=== PATIENT | female | born 1930 | race Caucasian/White ===

== ENCOUNTER 2017-03-26 14:10 | Inpatient (IN) | payer MEDICARE, BC ==
[~2017-03-26] VITALS: Ht 157.5 cm; Wt 74.3 kg
[~2017-03-26 14:10] MED LIST: CARDURA4 MG PO; CIPRO500 MG PO; CYMBALTA60 MG PO; MAGNESIUM GLUC500 M1 PO; MULTIPLE VITAMI1 TA1 PO; VASOTEC20 MG PO
[2017-03-26 16:20] LABS: BASOPHILS 0.2 % (0-2); EOSINOPHILS 1.1 % (0-7); HEMATOCRIT 37.8 % (36.0-48.0); HEMOGLOBIN 12.1 g/dL (12-16); IMMATURE GRANULOCYTES 0.3 % (0-5); LYMPHOCYTES 18.3 % (15-50); MCH 27.4 pg (26.0-34.0); MCV 85.5 fL (80.0-100.0); MEAN PLATELET VOLUME 9.2 fL (7.4-10.4); MONOCYTES 7.7 % (2-11); NEUTROPHILS 72.4 % (40-80); PLATELET COUNT 234 10x3/uL (130-400); RBC 4.42 10x6/uL (4.00-5.40); RDW 14.6 % (11.5-14.5); WBC 11.5 10x3/uL (4.8-10.8)
[2017-03-26 16:37] LABS: INR 1.34 (0.85-1.17); PROTIME 16.4 SECONDS (11.6-15.0)
[2017-03-26 16:42] LABS: ALBUMIN 2.8 g/dL (3.4-5.0); ANION GAP 10.8 mmol/L (8-16); BILIRUBIN - TOTAL 0.55 mg/dL (0.2-1.3); CALCIUM 8.5 mg/dL (8.5-10.1); CARBON DIOXIDE 27.3 mmol/L (21.0-32.0); CREATININE - SERUM 0.9 mg/dL (0.6-1.3); POTASSIUM - SERUM 4.1 mmol/L (3.5-5.1); PROTEIN - SERUM 7.1 g/dL (6.4-8.2)
[2017-03-26 16:59] LABS: TROPONIN-I 1.549 ng/mL (0.000-0.060)
[2017-03-26 21:00] VITALS: BP 115/43
--- NOTE | 2017-03-26 21:04 | NUR ---
RECIEVED PT TO FLOOR FROM ED VIA WHEELCHAIR. PT WALKED SELF TO BED WITH MINIMAL ASSISTANCE. PT IS ALERT AND ORIENTED AND ABLE TO VERBALIZE NEEDS. IV IS PATENT AND SALINE LOC AT THIS TIME. O2 @ 2 PER NASAL CANNULA. PT STATES SHE HAS PAIN TO HER LOWER BACK AND HIPS THAT IS CHRONIC. PT IS ORIENTED TO ROOM AND USE OF CALL LIGHT. NO NEEDS ARE VERBALIZED AT THIS TIME. WILL CONTINUE TO MONITOR. SIDE RAILS ARE UP X 2. BED IS IN LOWEST POSITION. CALL LIGHT IS WITHIN REACH.
[2017-03-26 21:34] LABS: APPEARANCE HAZY (CLEAR); BILIRUBIN NEGATIVE (NEGATIVE); COLOR DK YELLOW (YELLOW); GLUCOSE NEGATIVE (NEGATIVE); KETONE SMALL mg/dL (NEGATIVE); LEUKOCYTE ESTERASE TRACE (NEGATIVE); NITRITE NEGATIVE (NEGATIVE); PROTEIN TRACE mg/dL (NEGATIVE); SPECIFIC GRAVITY 1.025 (1.005-1.020); UROBILINOGEN NORMAL (NORMAL)
[2017-03-26 21:37] LABS: BACTERIA MODERATE /hpf (NONE SEEN); EPITHELIAL CELLS OCC /hpf (0-5); GRANULAR CAST OCC /lpf (NONE SEEN); HYALINE CAST 0-5 /lpf (NONE SEEN); MUCUS <1+ /lpf (NONE SEEN); RED CELLS - URINE 0-5 /hpf (0-5); WHITE CELLS - URINE 0-5 /hpf (0-5)
[2017-03-27] VITALS (7 sets, daily range): BP systolic 110–138; BP diastolic 43–61; Ht 157.5 cm; Wt 74.3 kg
[2017-03-27 06:50] LABS: BASOPHILS 0.1 % (0-2); HEMATOCRIT 32.7 % (36.0-48.0); HEMOGLOBIN 10.4 g/dL (12-16); IMMATURE GRANULOCYTES 0.3 % (0-5); LYMPHOCYTES 7.9 % (15-50); MCH 27.1 pg (26.0-34.0); MCHC 31.8 g/dL (31.0-37.0); MCV 85.2 fL (80.0-100.0); MEAN PLATELET VOLUME 9.4 fL (7.4-10.4); MONOCYTES 8.8 % (2-11); NEUTROPHILS 80.9 % (40-80); PLATELET COUNT 226 10x3/uL (130-400); RBC 3.84 10x6/uL (4.00-5.40); RDW 14.5 % (11.5-14.5)
[2017-03-27 07:00] LABS: CALC OSMOLALITY 265 mosm/kg (275-300); CALCIUM 8.1 mg/dL (8.5-10.1); CARBON DIOXIDE 27.4 mmol/L (21.0-32.0); CHLORIDE - SERUM 98 mmol/L (98-107); CREATININE - SERUM 0.7 mg/dL (0.6-1.3); GLUCOSE 105 mg/dL (74-106); SODIUM 133 mmol/L (136-145); UREA NITROGEN 13 mg/dL (7-18); eGFR NON AFRICAN AMERICAN 84 mL/min (90-120)
--- NOTE | 2017-03-27 07:55 | NUR ---
Alert and oriented times three, verbalized name and . Has oxygen in place at 2l, sitting up on side of bed, rhonchi auscultated to lung hall, nonproductive cough. Reports no chest pain at this time. Call brock within reach, instructed to call nurse to assist to bathroom. No distress assessed.
--- NOTE | 2017-03-27 09:34 | NUR ---
New order for SCD hose, skin lower legs assessed with no complications assessed, trace edema to ankles. Explained use of SCD's to patient and hose applied. Reinforced calling nurse for assist up, call light within reach. Fall risk precautions in place, reji alarm placed to bed and functioning properly, nonskid socks in place. Verbalized understanding of instructions.
--- NOTE | 2017-03-27 11:44 | NUR ---
Incentive spirometer initiated, able to demonstrate up to 4-500 piyush, continue to instruct.
[2017-03-27 13:20] LABS: CKMB 3.5 U/L (0.0-3.6); CREATINE KINASE 97 UL (21-215)
[2017-03-27 13:22] LABS: TROPONIN-I 1.213 ng/mL (0.000-0.060)
--- NOTE | 2017-03-27 13:57 | NUR ---
Assisted up top bathroom, slow steady gait with assist. Assisted back to bed. Lilly alarm on and functioning properly. No distress.
[2017-03-27 17:06] LABS: CKMB 2.9 U/L (0.0-3.6); CREATINE KINASE 91 UL (21-215)
[2017-03-27 17:10] LABS: TROPONIN-I 0.869 ng/mL (0.000-0.060)
--- NOTE | 2017-03-27 21:19 | NUR ---
AWAKE WIHTOUT COMPLAINTS. O2 AT 2L PER MC ON. NO DISTRESS NOTED. SL TO RIGHT HAND INTACT WITHOUT REDNESS OR EDEMMA NOTED. CL IN REACH.
[2017-03-27 22:59] LABS: CKMB 2.2 U/L (0.0-3.6); CREATINE KINASE 73 UL (21-215)
[2017-03-28] VITALS (8 sets, daily range): BP systolic 100–124; BP diastolic 44–62
--- NOTE | 2017-03-28 02:00 | NUR ---
PT IN BED WITH NO DISTRESS. O2 @ 2 PER NASAL CANNULA. SCD'S ON. ADAIR MAT ON. SIDE RAILS X 2. BED IS LOW. CALL LIGHT IN REACH.
--- NOTE | 2017-03-28 05:15 | NUR ---
AROUSES EASILY TO VERBAL STIMULI. NO COMPLAINTS VOICED. CL IN REACH
[2017-03-28 06:34] LABS: BASOPHILS 0.1 % (0-2); EOSINOPHILS 2.2 % (0-7); HEMOGLOBIN 9.9 g/dL (12-16); IMMATURE GRANULOCYTES 0.1 % (0-5); LYMPHOCYTES 16.6 % (15-50); MCH 26.9 pg (26.0-34.0); MCHC 31.9 g/dL (31.0-37.0); MCV 84.2 fL (80.0-100.0); MEAN PLATELET VOLUME 9.1 fL (7.4-10.4); MONOCYTES 8.8 % (2-11); NEUTROPHILS 72.2 % (40-80); PLATELET COUNT 222 10x3/uL (130-400); RBC 3.68 10x6/uL (4.00-5.40); RDW 14.4 % (11.5-14.5); WBC 8.5 10x3/uL (4.8-10.8)
--- NOTE | 2017-03-28 07:00 | NUR ---
REPORT RECIEVED ASSUMED CARE. PATIENT IN BED WITH IV INTACT. CALL LIGHT WITHIN REACH. BED ALARM ON.
[2017-03-28 07:19] LABS: ALBUMIN 2.2 g/dL (3.4-5.0); ALKALINE PHOSPHATASE 59 U/L (46-116); ALT (SGPT) 18 U/L (10-68); CALC OSMOLALITY 259 mosm/kg (275-300); CALCIUM 7.8 mg/dL (8.5-10.1); CARBON DIOXIDE 26.7 mmol/L (21.0-32.0); CHLORIDE - SERUM 96 mmol/L (98-107); CREATININE - SERUM 0.7 mg/dL (0.6-1.3); GLUCOSE 106 mg/dL (74-106); SODIUM 129 mmol/L (136-145); UREA NITROGEN 15 mg/dL (7-18); eGFR NON AFRICAN AMERICAN 84 mL/min (90-120)
--- NOTE | 2017-03-28 09:30 | NUR ---
ASSISTED PATIENT TO BR AND THEN TO CHAIR AT BEDSIDE. IV INTACT. NO COMPLAINTS. ADAIR ALARM IN CHAIR ON. CALL LIGHT WITHIN REACH.
--- NOTE | 2017-03-28 12:30 | NUR ---
PATIENT SITTING UP EATING IN CHAIR WITH NO COMPLAINTS. IV INTACT. O2 ON. CALL LIGHT WITHIN REACH.
--- NOTE | 2017-03-28 15:19 | NUR ---
Patient Name: JOHANNY DOWD Admission Status: ER Accout number: [id number] Admission Date: 03-26-2017 : 1930 Admission Diagnosis:LOBAR PNEUMONIA, UNSPECIFIED ORGANISM Attending: DONALD Current LOS: 2 Anticipated DC Date: 03-30-2017 Planned Disposition: Home Primary Insurance: MEDICARE A & B Discharge Planning Comments: CM MET WITH PATIENT REGARDING D/C NEEDS AND PLANS. PATIENT STATED HER SON IS LIVING WITH HER NOW AND IS THERE AT NIGHT (HE WORKS DURING DAY). PATIENT HAS ONE STEP TO ENTER HOME AND NO STAIRS INSIDE. PATIENT IS INDEPENDENT WITH HER CARE AND HAS OXYGEN (2L), PORTABLE O2, WALKER, AND A WALK IN TUB AT HOME. PATIENTS PCP IS DR. MCNEAL AND PHARMACY IS [facility]. PATIENT DENIES THE NEED FOR HOME HEALTH. CM WILL CONTINUE TO FOLLOW PATIENT WITH D/C NEEDS AND PLANS. PCP DR[facility]- [phone] DANNY (SON) [phone] Software Analyst: Lorrie Pugh Is the patient Alert and Oriented? Yes 0 * How many steps to enter\exit or inside your home? 1 0 * PCP DR. MCNEAL 0 * Pharmacy [facility] [address] 0 * Preadmission Environment Home with Family 0 * ADLs Independent 0 * Equipment Oxygen Walker 0 * Other Equipment PORTABLE 02, AND WALK IN TUB 0 * List name and contact numbers for known caregivers / representatives who currently or will assist patient after discharge: DANNY (SON) [phone] * Community resources currently utilized None 0 * Additional services required to return to the preadmission environment? Yes 0 * Can the patient safely return to the preadmission environment? Yes 0 * Has this patient been hospitalized within the prior 30 days at any hospital? No 0 Grand Total: 0
--- NOTE | 2017-03-28 16:00 | NUR ---
PATIENT IN CHAIR WITH FAMILY AT BEDSIDE. NO COMPLAINTS AT THIS TIME. CALL LIGHT WITHIN REACH.
--- NOTE | 2017-03-28 18:00 | NUR ---
PATIENT SPUTUM CULTURE COLLECTED AND TAKEN TO LAB. PATIENT IN BED WITH IV INTACT. BED ALARM ON. CALL LIGHT WITHIN REACH.
--- NOTE | 2017-03-28 20:15 | NUR ---
ALERT,ORIENTED.RESP EVEN AND UNLABORED. O2 @ 2L PER NC ON. BILATERAL LUNG SOUNDS WIHT RONDANN NOTED. SL TO RIGHT HAND WITHOUT REDNESS OR EDEMA. CL IN REACH. NO COMPLAINTS.
--- NOTE | 2017-03-29 01:30 | NUR ---
RESTING QUIETLY. NO DISTRESS NOTED.
--- NOTE | 2017-03-29 02:59 | NUR ---
PATIENT RESTING IN BED WITH EYES CLOSED AND NO VISIBLE SIGNS OF DISTRESS. BED IN LOWEST POSITION AND CALL LIGHT WITHIN REACH.
[2017-03-29 04:39] VITALS: BP 139/62
--- NOTE | 2017-03-29 06:08 | NUR ---
UP IN CHAIR AT BEDSIDE. NO COMPLAINTS VOICED. CL IN REACH
[2017-03-29 06:53] LABS: BASOPHILS 0.1 % (0-2); EOSINOPHILS 0.5 % (0-7); HEMATOCRIT 34.5 % (36.0-48.0); IMMATURE GRANULOCYTES 0.4 % (0-5); MCH 26.8 pg (26.0-34.0); MCHC 31.9 g/dL (31.0-37.0); MCV 84.1 fL (80.0-100.0); MEAN PLATELET VOLUME 9.6 fL (7.4-10.4); MONOCYTES 3.4 % (2-11); NEUTROPHILS 90.6 % (40-80); RDW 14.4 % (11.5-14.5); WBC 8.4 10x3/uL (4.8-10.8)
[2017-03-29 06:55] LABS: PLATELET COUNT 305 10x3/uL (130-400)
--- NOTE | 2017-03-29 07:00 | NUR ---
REPORT RECIEVED ASSUMED CARE.PATIENT SITTING UP IN CHAIR AT THIS TIME WITH NO COMPLAINTS. MONTY ALARM ON. CALL LIGHT WITHIN REACH.
[2017-03-29 07:12] LABS: ALBUMIN 2.4 g/dL (3.4-5.0); ALKALINE PHOSPHATASE 72 U/L (46-116); ALT (SGPT) 27 U/L (10-68); BILIRUBIN - TOTAL 0.47 mg/dL (0.2-1.3); CALC OSMOLALITY 261 mosm/kg (275-300); CALCIUM 8.3 mg/dL (8.5-10.1); CHLORIDE - SERUM 95 mmol/L (98-107); CREATININE - SERUM 0.7 mg/dL (0.6-1.3); GLUCOSE 129 mg/dL (74-106); POTASSIUM - SERUM 4.6 mmol/L (3.5-5.1); PROTEIN - SERUM 6.8 g/dL (6.4-8.2); SODIUM 129 mmol/L (136-145); UREA NITROGEN 16 mg/dL (7-18); eGFR NON AFRICAN AMERICAN 84 mL/min (90-120)
[2017-03-29 07:58] VITALS: BP 124/67
[2017-03-29 12:46] VITALS: BP 121/63
[2017-03-29 16:02] VITALS: BP 122/52
--- NOTE | 2017-03-29 18:00 | NUR ---
ASSISTED PATIENT BACK TO BED AT THIS TIME. IV INTACT. NO COMPLAINTS. BED ALARM ON. CALL LIGHT WITHIN REACH.
[2017-03-29 20:54] VITALS: BP 148/89
--- NOTE | 2017-03-29 21:23 | NUR ---
WATCHING TV QUIELTLY. NO DISTRESS NOTED. O2 @ 4 L PER NC ON. SL TO RIGHT HAND PATENT WIHTOUT REDNESS OR EDEMA NOTED. CL IN REACH
[2017-03-30] VITALS: BP 134/669
--- NOTE | 2017-03-30 01:48 | NUR ---
RESTING QUIETLY. NO DISTRESS NOTED. CL IN REACH
[2017-03-30 04:00] VITALS: BP 135/69
--- NOTE | 2017-03-30 05:38 | NUR ---
AWAKE,ALERT. NO DISTRESS NOTED. CL IN REACH
[2017-03-30 06:27] LABS: BASOPHILS 0.2 % (0-2); EOSINOPHILS 2.2 % (0-7); HEMATOCRIT 31.6 % (36.0-48.0); HEMOGLOBIN 10.2 g/dL (12-16); IMMATURE GRANULOCYTES 0.3 % (0-5); LYMPHOCYTES 12.9 % (15-50); MCHC 32.3 g/dL (31.0-37.0); MCV 83.6 fL (80.0-100.0); MEAN PLATELET VOLUME 9.4 fL (7.4-10.4); MONOCYTES 9.1 % (2-11); NEUTROPHILS 75.3 % (40-80); PLATELET COUNT 305 10x3/uL (130-400); RBC 3.78 10x6/uL (4.00-5.40); RDW 14.3 % (11.5-14.5); WBC 8.8 10x3/uL (4.8-10.8)
[2017-03-30 07:00] LABS: ALBUMIN 2.2 g/dL (3.4-5.0); ALKALINE PHOSPHATASE 65 U/L (46-116); ALT (SGPT) 24 U/L (10-68); BILIRUBIN - TOTAL 0.32 mg/dL (0.2-1.3); CALC OSMOLALITY 260 mosm/kg (275-300); CALCIUM 8.1 mg/dL (8.5-10.1); CARBON DIOXIDE 27.3 mmol/L (21.0-32.0); CHLORIDE - SERUM 94 mmol/L (98-107); CREATININE - SERUM 0.7 mg/dL (0.6-1.3); GLUCOSE 106 mg/dL (74-106); POTASSIUM - SERUM 4.6 mmol/L (3.5-5.1); PROTEIN - SERUM 6.2 g/dL (6.4-8.2); SODIUM 129 mmol/L (136-145); UREA NITROGEN 17 mg/dL (7-18); eGFR NON AFRICAN AMERICAN 84 mL/min (90-120)
--- NOTE | 2017-03-30 07:00 | NUR ---
REPORT RECIEVED ASSUMED CARE. PATIENT IN BED WITH IV INTACT. NO COMPLAINTS AT THIS TIME. CALL LIGHT MALENA RUEDA.
[2017-03-30 07:09] LABS: APTT 48.8 SECONDS (22.8-39.4); INR 1.28 (0.85-1.17); PROTIME 15.9 SECONDS (11.6-15.0)
[2017-03-30 07:27] LABS: IMMUNOGLOBULIN E 25 IU/mL (0-100)
[2017-03-30 07:58] VITALS: BP 137/60
--- NOTE | 2017-03-30 11:15 | NUR ---
PATIENT REFUSED ALL MEDS. STATED THAT SHE WASNT TAKING ANY BECAUSE SHE WAS SUPPOSE TO HAVE A PROCEDURE AND THAT THEY WERENT THERE YET TO GET HER AND WANTED THEM TO GET THERE BC THEY HAD TOLD HER 1100. EXPLAINED TO PATIENT OK TO TAKE MEDS. REFUSED. EXPLAINED THAT THEY WOULD BE THERE TO TAKE HER TO GET HER BRONCH SOON THEY COULD. PATIENT VERBALIZED UNDERSTANDING.
[2017-03-30 12:28] VITALS: BP 136/51
--- NOTE | 2017-03-30 16:20 | NUR ---
PATIENT SATS DROPPED AT THIS TIME. NOTIFIED DR. VALENCIA AND RESPIRATORY. NEW ORDERS RECIEVED AND CARRIED OUT. PATIENT SATS 95 ON 15L OXIMIZER AT THIS TIME. WILL CONTINUE TO MONITOR. CALL LIGHT WITHIN REACH.
[2017-03-30 17:05] LABS: EOS BF 6 %; LYMPH - BF 9 %; MACROPHAGES BF 3 %; MESOTHELIALS BF 3 %; NEUT - BF 79 %
--- NOTE | 2017-03-30 18:45 | NUR ---
PATIENT IN BED WITH IV INTACT. NO COMPLAINTS AT THIS TIME. SATS 98 ON 15L OXIMIZER. BED ALARM ON. CALL LIGHT WITHIN REACH.
[2017-03-30 20:00] VITALS: BP 138/47
--- NOTE | 2017-03-30 20:00 | NUR ---
REPORT RECEIVED AND CARE ASSUMED. ASSISTED PATIENT TO BSC TO VOID. O2 WITH OXIMIZER ON AT 15L/HR. NO ACUTE DISTRESS NOTED. BED LOW AND CALL LIGHT IN EASY REACH.
[2017-03-31] VITALS: BP 122/60
[2017-03-31 04:00] VITALS: BP 114/50
[2017-03-31 05:12] LABS: BASOPHILS 0.3 % (0-2); EOSINOPHILS 1.6 % (0-7); HEMATOCRIT 33.5 % (36.0-48.0); HEMOGLOBIN 10.5 g/dL (12-16); IMMATURE GRANULOCYTES 0.3 % (0-5); LYMPHOCYTES 9.9 % (15-50); MCH 26.4 pg (26.0-34.0); MCHC 31.3 g/dL (31.0-37.0); MCV 84.4 fL (80.0-100.0); MEAN PLATELET VOLUME 8.9 fL (7.4-10.4); MONOCYTES 6.5 % (2-11); NEUTROPHILS 81.4 % (40-80); PLATELET COUNT 330 10x3/uL (130-400); RBC 3.97 10x6/uL (4.00-5.40); RDW 14.3 % (11.5-14.5)
[2017-03-31 05:16] LABS: WBC 11.7 10x3/uL (4.8-10.8)
[2017-03-31 05:33] LABS: ALBUMIN 2.2 g/dL (3.4-5.0); ANION GAP 10.9 mmol/L (8-16); BILIRUBIN - TOTAL 0.56 mg/dL (0.2-1.3); CALCIUM 8.2 mg/dL (8.5-10.1); CREATININE - SERUM 0.8 mg/dL (0.6-1.3); POTASSIUM - SERUM 4.9 mmol/L (3.5-5.1); PROTEIN - SERUM 6.2 g/dL (6.4-8.2)
--- NOTE | 2017-03-31 07:35 | NUR ---
SITTING IN BED, REQUESTING TO GET UP TO BEDSIDE COMMODE, UP WITH ASSISTANCE, DENIES OTHER NEEDS, BED LOWEST POSITION, CALL LIGHT IN REACH, WILL CONTINUE TO MONITOR
[2017-03-31 09:48] VITALS: BP 130/62
--- NOTE | 2017-03-31 11:25 | CN ---
PATIENT NAME:SELENA ELISE MEDICAL RECORD: [id number] : 31 LOCATION:D.[id number] ADMIT DATE: 03/26/17 ACCOUNT: [id number] CONSULTING PHYSICIAN: SRINIVAS KNOTT MD REFERRING PHYSICIAN: JOSEPH JIN MD DATE OF CONSULTATION: 03/30/2017 HISTORY OF PRESENT ILLNESS: Selena Elise is an 86-year-old woman whom I have been asked to evaluate regarding history of interstitial lung disease, pulmonary fibrosis with abnormal serologies to see if she has underlying connective tissue disease. The patient has a past history of obstructive sleep apnea using CPAP. Records indicate that in 2014, she did have evidence of pulmonary fibrosis on chest CT. This was per Dr. Leal note of February 2016. She noted that chest x-ray in 2013 showed some interstitial lung disease. The patient was hospitalized at [facility] on 02/06-02/09 with acute pneumonitis with respiratory insufficiency and found to have evidence of pulmonary fibrosis on chest CT with some ill-defined ground-glass changes. Serological workup at that time showed GEE negative, SSA positive, SSB negative, Scl-70 negative, anticentromere negative, anti-DNA negative, rheumatoid factor negative, CCP negative and ESR 35. [facility] pulmonary wished for me to see the patient to rule out underlying connective tissue disease, so that they could consider placing her on OFEV (nintedanib) to retard progression of the pulmonary fibrosis. The patient has now been hospitalized at [facility] since 03/27/2017 with worsening respiratory insufficiency with mixed interstitial airspace disease. She has bibasilar rales at scapular tips. She has some anterior rales. Today, she underwent bronchoscopy and BAL results that are pending. The patient is a poor historian and information obtained from [facility], current records from this admission and from my remote office notes when I saw the patient in 2003 and in 2012. For what I gathered, there is no reports of any dry eyes, dry nose, dry skin, Raynaud's. She has no telangiectasia. There is no reported pleural pericarditis, hepatitis, proteinuria, hematuria or inflammatory arthritis. On exam, there is no evidence of parotid or submandibular gland enlargement, sclerodactyly or telangiectasia. No evidence of calcinosis cutis or other stigmata of limited scleroderma or progressive systemic sclerosis. Currently, WBC 8800, hemoglobin 10.2. Sodium 129, creatinine 0.7. Liver enzymes normal. Albumin 2.2, alpha-1 antitrypsin pending, fungal cultures, TB cultures, mycoplasma titers, legionella titers pending. CURRENT MEDICATIONS: MiraLax b.i.d., Solu-Medrol 40 mg IV daily, levofloxacin 750 mg every 24 hours, Lovenox 40 mg subQ daily, DuoNeb 3 cc q.i.d., Mucinex b.i.d., Tessalon Perles 100 mg t.i.d., Xalatan 0.005% one drop left eye, CONSULT REPORT [id number] SELENA ELISE enalapril 20 mg b.i.d., metoprolol 25 mg b.i.d., potassium, multivitamin, Cymbalta 60 mg daily and Protonix 40 mg daily. Per history and physical, home medicines are as follows: Enalapril 20 mg b.i.d., Cardura 4 mg daily, Cymbalta 60 mg daily, multivitamin and magnesium. Per [facility], most recent medicines also included Protonix 40 mg daily, vitamin C daily, vitamin B12 sublingual, calcium tablets and tramadol. PAST MEDICAL HISTORY: SHE REPORTED ALLERGY TO AUGMENTIN, CLARITHROMYCIN, DEMEROL, DOXYCYCLINE, MELOXICAM, NORVASC, SULFA, TRIAMTERENE, VESRSED AND VIBRAMYCIN. 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 She has history of obstructive sleep apnea, use of CPAP. She has had remote knee arthroscopies. SOCIAL HISTORY: She formerly drank wine. She is a former smoker, quitting approximately 1989. She is a retired corporation secretary. FAMILY HISTORY: Father had heart attack at age 54, mother had heart attack at age 76, positive family history of hypertension and brother with cancer. No reported family history of connective tissue disease. REVIEW OF SYSTEMS: The patient is a poor historian and unreliable. PHYSICAL EXAMINATION: VITAL SIGNS: Blood pressure 136/51, pulse 87 and regular, respirations 20, temperature 99.1 and O2 saturation 95% on 4 liters. GENERAL: This is an elderly woman who is somewhat tired and falls asleep easily. She has very poor hearing, does not have her hearing aids. HEENT: Head: Normal female hair pattern without alopecia. Eyes: Conjunctivae are clear. Extraocular movements appeared satisfactory. Mouth is only minimally dry, it is unusual considering oxygen. No oral lesions. Parotid and submandibular glands are not enlarged. NECK: Supple. There is no adenopathy in neck or supraclavicular areas. LUNGS: Reveal crackles and rales at the bases, mid scapula and some in the anterior chest. There is no wheeze or bronchial breath sound. CARDIOVASCULAR: S1, S2 are normal, carotids are 2+ without delay or bruit. Pedal pulses 1+. No dependent edema. ABDOMEN: Soft, obese, nontender, without masses. MUSCULOSKELETAL: There is osteoarthritis of the thumbs and DIPs. There is no discomfort. General range of motion of the fingers, elbows and shoulders, which are all normal. Hips have fair range of motion. Knees have full extension flexion without swelling, warmth or erythema. Ankles and MTPs are nontender. NEUROLOGIC: She moves all extremities. There are no lateralizing signs. Strength cannot be tested due to current mental status. SKIN: There is no evidence of telangiectasia, infarcts, sclerodactyly, malar rash, discoid lupus or nodules. IMPRESSION: 1. Interstitial lung disease with pulmonary fibrosis. A. Abnormal chest x-rays showing interstitial lung disease since 2013. B. The reported chest CT in 2014 showing bibasilar pulmonary fibrosis. CONSULT REPORT [id number] SELENA ELISE C. Abnormal chest CT in February 2017 with pulmonary fibrosis, ground-glass changes with superimposed pneumonitis. D. Current worsening respiratory insufficiency with superimposed pneumonitis. 2. Positive SSA in February 2017. (Remainder of GEE profile including GEE normal). 3. History of obstructive sleep apnea, uses CPAP. 4. Osteoarthritis. RECOMMENDATIONS: 1. Recheck GEE and antiprofile positive. 2. Recheck SSA and SSB. 3. Recheck anti-Scl-70. 4. Continue current antibiotics and supportive care. 5. No clinical evidence on physical exam of underlying connective tissue disease, which would account for interstitial lung disease/pulmonary fibrosis. DISCUSSION: On clinical exam there is no definite evidence of any features of connective tissue disease, which would account for interstitial lung disease and pulmonary fibrosis. The SSA may not be significant for recheck. Occasionally, finds minor serological abnormalities without any definite evidence of underlying connective tissue disease. TRANSINT:[id number] Voice Confirmation ID: [id number] DOCUMENT ID: [id number] SRINIVAS KNOTT MD at 1125 CC: [id number] DICTATION DATE: 03/30/171957 HEARING AID SPECIALIST: 03/31/17 0122 ADM IN [facility] [address] [place] [address]
[2017-03-31 13:02] VITALS: BP 129/53
--- NOTE | 2017-03-31 13:14 | NUR ---
PATIENT SITTING UP IN CHAIR ALERT. NO SIGNS OF DISTRESS NOTED. CALL LIGHT IN REACH. DENIES NEEDS.
[2017-03-31 16:02] VITALS: BP 132/54
--- NOTE | 2017-03-31 20:00 | NUR ---
REC'D IN BED AWAKE AND ALERT. RESP EVEN AND UNLABORED WITH NO DISTRESS NOTED WITH 15 L IN USE VIA OXYIZER. NO C/O NOTED OR VOICED AT THIS TIME. ASSESSMENT COMPLETED. C/L IN REACH AT BEDSIDE.
[2017-03-31 21:06] LABS: ACID FAST SMEAR Negative (()); AFB SPECIMEN PROCESSING Concentration (())
[2017-03-31 23:14] VITALS: BP 121/58
--- NOTE | 2017-04-01 03:07 | NUR ---
RESTING WITH EYES CLOSED, NO DISTRESS NOTED, FALL PRECAUTIONS IN PLACE, CL IN REACH
[2017-04-01 05:06] VITALS: BP 119/59
[2017-04-01 07:15] LABS: BASOPHILS 0.2 % (0-2); EOSINOPHILS 3.1 % (0-7); HEMATOCRIT 32.4 % (36.0-48.0); HEMOGLOBIN 10.4 g/dL (12-16); IMMATURE GRANULOCYTES 0.4 % (0-5); LYMPHOCYTES 14.1 % (15-50); MCH 26.5 pg (26.0-34.0); MCHC 32.1 g/dL (31.0-37.0); MCV 82.7 fL (80.0-100.0); MEAN PLATELET VOLUME 8.8 fL (7.4-10.4); MONOCYTES 7.4 % (2-11); NEUTROPHILS 74.8 % (40-80); PLATELET COUNT 321 10x3/uL (130-400); RBC 3.92 10x6/uL (4.00-5.40); RDW 14.2 % (11.5-14.5); WBC 10.4 10x3/uL (4.8-10.8)
[2017-04-01 07:41] LABS: ALKALINE PHOSPHATASE 73 U/L (46-116); ALT (SGPT) 18 U/L (10-68); BILIRUBIN - TOTAL 0.49 mg/dL (0.2-1.3); CALC OSMOLALITY 252 mosm/kg (275-300); CALCIUM 8.2 mg/dL (8.5-10.1); CARBON DIOXIDE 29.7 mmol/L (21.0-32.0); CHLORIDE - SERUM 90 mmol/L (98-107); CREATININE - SERUM 0.7 mg/dL (0.6-1.3); GLUCOSE 115 mg/dL (74-106); POTASSIUM - SERUM 4.2 mmol/L (3.5-5.1); PRO BNP 7352 pg/mL (0-450); PROTEIN - SERUM 6.1 g/dL (6.4-8.2); SODIUM 125 mmol/L (136-145); UREA NITROGEN 13 mg/dL (7-18); eGFR NON AFRICAN AMERICAN 84 mL/min (90-120)
--- NOTE | 2017-04-01 07:59 | NUR ---
SITTING IN CHAIR, ON PHONE WITH FAMILY, DENIES NEEDS, CALL LIGHT IN REACH, WILL CONTINUE TO MONITOR
--- NOTE | 2017-04-01 10:05 | NUR ---
PATIENT SITTING UP IN CHAIR ALERT. NO SIGNS OF DISTRESS NOTED. CALL LIGHT IN REACH. RT PRESENT.
--- NOTE | 2017-04-01 11:28 | NUR ---
IV PLACED LEFT FOREARM, ONE STICK, MINIMAL PAIN, 22G, SALINE LOCK
[2017-04-01 12:20] VITALS: BP 144/62
--- NOTE | 2017-04-01 13:36 | NUR ---
SITTING IN CHAIR NAPPING, BREATHING EVEN UNALBORED, WILL CONTINUE TO MONITOR
[2017-04-01 16:23] VITALS: BP 144/63
[2017-04-01 18:13] LABS: APPEARANCE CLEAR (CLEAR); BILIRUBIN NEGATIVE (NEGATIVE); COLOR YELLOW (YELLOW); GLUCOSE NEGATIVE (NEGATIVE); KETONE NEGATIVE (NEGATIVE); LEUKOCYTE ESTERASE NEGATIVE (NEGATIVE); NITRITE NEGATIVE (NEGATIVE); PROTEIN NEGATIVE (NEGATIVE); UROBILINOGEN NORMAL (NORMAL)
[2017-04-01 18:16] LABS: CREATININE - URINE 29.2 mg/dL (30-125); POTASSIUM - URINE 34.3 MMOL/L (12.0-62.0); PROTEIN - URINE 10.9 mg/dL (0.0-11.9)
[2017-04-01 19:00] VITALS: BP 131/71
--- NOTE | 2017-04-01 20:00 | NUR ---
REC'D IN BED AWAKE AND ALERT. RESP EVEN AND UNLABORED WITH NO DISTRESS NOTED. HAS O2 IN USE VIA N/C @ 3 L/M. NO C/O NOTED OR VOICED. ASSESSMENT COMPLETED. C/L IN REACH AT BEDSIDE.
[2017-04-02 04:00] VITALS: BP 150/64
[2017-04-02 05:28] LABS: BASOPHILS 0 % (0-2); EOSINOPHILS 0 % (0-7); HEMATOCRIT 33.1 % (36.0-48.0); HEMOGLOBIN 10.5 g/dL (12-16); IMMATURE GRANULOCYTES 0.5 % (0-5); LYMPHOCYTES 8.9 % (15-50); MCHC 31.7 g/dL (31.0-37.0); MCV 81.9 fL (80.0-100.0); MONOCYTES 3.3 % (2-11); NEUTROPHILS 87.3 % (40-80); PLATELET COUNT 324 10x3/uL (130-400); RBC 4.04 10x6/uL (4.00-5.40); RDW 13.7 % (11.5-14.5)
[2017-04-02 05:36] LABS: WBC 7.3 10x3/uL (4.8-10.8)
[2017-04-02 05:43] LABS: CALC OSMOLALITY 255 mosm/kg (275-300); CALCIUM 8.4 mg/dL (8.5-10.1); CARBON DIOXIDE 25.4 mmol/L (21.0-32.0); CHLORIDE - SERUM 90 mmol/L (98-107); GLUCOSE 162 mg/dL (74-106); POTASSIUM - SERUM 4.5 mmol/L (3.5-5.1); SODIUM 125 mmol/L (136-145); UREA NITROGEN 13 mg/dL (7-18)
[2017-04-02 05:46] LABS: CREATININE - SERUM 0.5 mg/dL (0.6-1.3); eGFR NON AFRICAN AMERICAN > 90 mL/min (90-120)
--- NOTE | 2017-04-02 06:06 | NUR ---
PATIENT SLEEPING SUPINE IN BED WITH CPAP ON. HOB 10 DEGREES. 0 S/S OF DISTRESS. SCD'S OFF. SRX2. CALL LIGHT WITHIN REACH.
--- NOTE | 2017-04-02 07:00 | NUR ---
REPORT RECIEVED ASSUMED CARE. PATIENT IN BED WITH NO COMPLAINTS AT THIS TIME. IV INTACT. CALL LIGHT WITHIN REACH.
[2017-04-02 08:37] VITALS: BP 137/61
[2017-04-02 12:05] VITALS: BP 98/61
[2017-04-02 12:13] LABS: ANA REFLEX - ANTICHROMATIN ABS <0.2 AI (0.0-0.9); ANA REFLEX - CENTROMERE B ABS <0.2 AI (0.0-0.9); ANA REFLEX - DBL STRANDED DNA 1 IU/mL (0-9); ANA REFLEX - DIRECT Positive (Negative); ANA REFLEX - JO-1 AB <0.2 AI (0.0-0.9); ANA REFLEX - RNP ANTIBODIES 0.2 AI (0.0-0.9); ANA REFLEX - SCL-70 <0.2 AI (0.0-0.9); ANA REFLEX - SJOGRENS AB SSA 3.7 AI (0.0-0.9); ANA REFLEX - SJOGRENS AB SSB <0.2 AI (0.0-0.9); ANA REFLEX - SMITH AB <0.2 AI (0.0-0.9)
[2017-04-02 12:13] LABS: FUNGUS STAIN Final report (())
--- NOTE | 2017-04-02 15:02 | CN ---
PATIENT NAME:JOHANNY ELISE MEDICAL RECORD: [id number] : 31 LOCATION:D.[id number] ADMIT DATE: 03/26/17 ACCOUNT: [id number] CONSULTING PHYSICIAN: BARRY GRULLON MD REFERRING PHYSICIAN: JOSEPH JIN MD DATE OF CONSULTATION: 03/27/2017 Cardiology Consultation DIAGNOSES: 1. Elevated troponin. 2. Pneumonia. 3. Hypertension. HISTORY OF PRESENT ILLNESS: Ms. Elise presents with shortness of breath, pneumonia bilateral, found to have mildly elevated troponin, no chest pain, no ST-T changes on her EKG. Cardiovascular history, she only has hypertension for which she is on enalapril and Cardura. Her heart rate is tachycardic at approximately 100. PHYSICAL EXAMINATION: GENERAL APPEARANCE: Well-nourished, well-developed, appears stated age. Level of distress, comfortable. PSYCHIATRIC: Mental status, alert, normal affect. Orientation, oriented to time, place and person. EYES: Lids and conjunctiva, noninjected. No discharge, no pallor. ENT: Lips, teeth, gums, normal dentition. Oropharynx, no cyanosis, no pallor. NECK: Carotid arteries, bilateral normal upstroke, no bruits, no thrills. JUGULAR VEINS: No jugular venous pressure or distention. CERVICAL LYMPH NODES: Nontender, nonenlarged. THYROID: Not enlarged. Nontender. No nodules. LUNGS: Respiratory effort, unlabored. CHEST: Normal curvature. No thoracic deformity. No chest wall tenderness. Percussion, resonant. Auscultation, clear. No wheezes, no rales, no rhonchi. CARDIOVASCULAR: Precordial exam, nondisplaced. No heaves or pericardial thrills. Rate and rhythm, regular. Heart sounds, normal S1, normal S2. No S3, no gallop, no rub. Systolic murmur, not heard. Diastolic murmur, not heard. EXTREMITIES: No cyanosis, no edema. Peripheral pulses, full and equal in all extremities, except as noted. No bruits appreciated. ABDOMEN: Soft, nondistended. Normal aorta. No bruit. Nontender. No masses. Liver, nontender, no hepatomegaly. Spleen, nontender, no splenomegaly. MUSCULOSKELETAL: No joint tenderness. No joint swelling. No erythema. NEUROLOGICAL: Normal gait, normal strength, normal tone. SKIN: Warm and dry. REVIEW OF SYSTEMS: The patient reports easy bruising but reports no swollen glands. The patient reports no fever, no night sweats, no significant weight gain, no significant weight loss. No significant exercise tolerance. The patient reports no dry eyes, no irritation, no vision change. Patient reports no difficulty hearing and no ear pain. Patient reports no frequent nose bleeds or nose and sinus problems. Patient reports on arm pain on exertion. No shortness of breath while lying down. No history of heart murmur. Patient reports no cough, no wheezing or coughing up blood. Patient reports no abdominal pain, no vomiting. Normal appetite. No diarrhea and not vomiting blood. No nausea and no constipation. Patient reports no incontinence. No CONSULT REPORT [id number] JOHANNY ELISE difficulty urinating. No hematuria. No increased frequency. Patient reports no muscle aches. No weakness, no arthralgias, no back pain. No swelling of the extremities. Patient reports no abnormal mole, no jaundice, no rashes. Reports no loss of consciousness. No weakness and no numbness. No seizures, dizziness, or headaches. The patient reports no depression, no sleep disturbance, feeling safe in a relationship and no alcohol abuse. Patient reports on fatigue. Reports no runny nose or sinus pressure. No itching, no hives, and no frequent sneezing. OVERALL IMPRESSION: At this time, we will discontinue the Cardura. Put her on Lopressor 25 mg b.i.d. Echocardiogram has already been ordered. No other cardiac workup or treatment is necessary. TRANSINT:[id number] Voice Confirmation ID: [id number] DOCUMENT ID: [id number] BARRY RGULLON MD at 1502 CC: [id number] DICTATION DATE: 03/27/17 1129 JEWEL BEARING TURNER: 03/27/171957 [facility] [place] [id number] [place] [address]
[2017-04-02 16:30] VITALS: BP 130/70
[2017-04-02 22:07] LABS: MYCOPLASMA PNEUMO IGG <100 U/mL (0-99)
[2017-04-03] VITALS: BP 138/66
--- NOTE | 2017-04-03 02:01 | NUR ---
PATIENT SLEEPING SUPINE IN BED. HOB 10 DEGREES. CPAP ON. 0 S/S OF DISTRESS. SCD'S IN ROOM BUT OFF. SRX2. BED LOW. CALL LIGHT WITHIN REACH.
[2017-04-03 06:12] LABS: BASOPHILS 0.1 % (0-2); EOSINOPHILS 0.3 % (0-7); HEMATOCRIT 30.9 % (36.0-48.0); IMMATURE GRANULOCYTES 1.2 % (0-5); LYMPHOCYTES 13.3 % (15-50); MCH 26.7 pg (26.0-34.0); MCHC 32.4 g/dL (31.0-37.0); MCV 82.4 fL (80.0-100.0); MEAN PLATELET VOLUME 8.7 fL (7.4-10.4); MONOCYTES 8.5 % (2-11); NEUTROPHILS 76.6 % (40-80); PLATELET COUNT 355 10x3/uL (130-400); RBC 3.75 10x6/uL (4.00-5.40); RDW 13.9 % (11.5-14.5)
[2017-04-03 06:58] LABS: WBC 13.1 10x3/uL (4.8-10.8)
[2017-04-03 07:14] LABS: ALKALINE PHOSPHATASE 58 U/L (46-116); ALT (SGPT) 18 U/L (10-68); CALCIUM 8.2 mg/dL (8.5-10.1); CARBON DIOXIDE 30.3 mmol/L (21.0-32.0); CHLORIDE - SERUM 95 mmol/L (98-107); POTASSIUM - SERUM 4.1 mmol/L (3.5-5.1); PROTEIN - SERUM 5.8 g/dL (6.4-8.2); SODIUM 130 mmol/L (136-145); UREA NITROGEN 14 mg/dL (7-18); eGFR NON AFRICAN AMERICAN 84 mL/min (90-120)
[2017-04-03 07:15] LABS: CALC OSMOLALITY 261 mosm/kg (275-300); CREATININE - SERUM 0.7 mg/dL (0.6-1.3); GLUCOSE 101 mg/dL (74-106)
[2017-04-03 08:34] VITALS: BP 134/62
[2017-04-03 12:06] VITALS: BP 131/49
--- NOTE | 2017-04-03 14:11 | NUR ---
Rehab Note- Acute rehab prescreen order received. Will plan to admit the patient to acute rehab when medically stable and ready for discharge from the acute hospital. Spoke with ROZINA Owens. Will follow the patient at this time. Thank you for this referral! Anusha Jean RN Clinical Liaison, [facility] Rehab
[2017-04-03 19:00] VITALS: BP 143/62
--- NOTE | 2017-04-03 20:54 | NUR ---
AWAKE,ALERT,NO COMPLAINTS VOICED. IV INFUSING TO LEFT FOREARM WIHITOUT REDNESS OR EDEMA NOTED. O2 @ 3L PER NC ON. NO DISTRESS NOTED. CL IN REACH.
[2017-04-04] VITALS: BP 168/74
--- NOTE | 2017-04-04 00:42 | NUR ---
PATIENT RESTING WITH EYES CLOSED AND NO VISIBLE SIGNS OF DISTRESS. BED IN THE LOWEST POSITION AND CALL LIGHT WITHIN REACH.
[2017-04-04 04:00] VITALS: BP 158/87
[2017-04-04 05:22] LABS: BASOPHILS 0.1 % (0-2); EOSINOPHILS 0 % (0-7); HEMATOCRIT 31.8 % (36.0-48.0); HEMOGLOBIN 10.3 g/dL (12-16); IMMATURE GRANULOCYTES 2.4 % (0-5); LYMPHOCYTES 11.8 % (15-50); MCH 26.8 pg (26.0-34.0); MCHC 32.4 g/dL (31.0-37.0); MCV 82.6 fL (80.0-100.0); MEAN PLATELET VOLUME 8.5 fL (7.4-10.4); MONOCYTES 5.4 % (2-11); NEUTROPHILS 80.3 % (40-80); PLATELET COUNT 349 10x3/uL (130-400); RBC 3.85 10x6/uL (4.00-5.40)
[2017-04-04 05:25] LABS: WBC 9.6 10x3/uL (4.8-10.8)
--- NOTE | 2017-04-04 05:28 | NUR ---
AWAKE WITH NO COMPLAINTS. CL IN REACH. NO CHANGE IN ASSESSMENT.
[2017-04-04 06:27] LABS: ALBUMIN 2.1 g/dL (3.4-5.0); ALKALINE PHOSPHATASE 62 U/L (46-116); CALC OSMOLALITY 264 mosm/kg (275-300); CALCIUM 8.3 mg/dL (8.5-10.1); CARBON DIOXIDE 30.6 mmol/L (21.0-32.0); CHLORIDE - SERUM 97 mmol/L (98-107); CREATININE - SERUM 0.6 mg/dL (0.6-1.3); GLUCOSE 131 mg/dL (74-106); POTASSIUM - SERUM 4.5 mmol/L (3.5-5.1); PROTEIN - SERUM 5.9 g/dL (6.4-8.2); SODIUM 131 mmol/L (136-145); UREA NITROGEN 12 mg/dL (7-18); eGFR NON AFRICAN AMERICAN > 90 mL/min (90-120)
[2017-04-04 06:29] LABS: ALT (SGPT) 26 U/L (10-68)
--- NOTE | 2017-04-04 07:30 | NUR ---
RECIEVED PT DURING WALKING ROUNDS. PT RESTING IN BED WITH NO COMPLAINTS OF PAIN OR DISCOMFORT AT THIS TIME. ASSESSMENT DONE PER FLOWSHEET. BED IN LOW POSITION AND CALL LIGHT WITHIN REACH. WILL CONTINUE TO MONITOR.
[2017-04-04 08:44] VITALS: BP 145/70
[2017-04-04 09:09] LABS: COMPLEMENT C4 10.5 mg/dL (17.4-52.2)
[2017-04-04 13:37] VITALS: BP 119/53
--- NOTE | 2017-04-04 13:54 | EC ---
PATIENT:JOHANNY DOWD DATE OF SERVICE: 03/26/17 SEX: F MEDICAL RECORD: [id number] DATE OF : 31 LOCATION:D. [facility] AGE OF PATIENT: 86 ADMISSION DATE: 03/26/17 REFERRING PHYSICIAN: INTERPRETING PHYSICIAN: ARMANI LEONARD M.D. ECHOCARDIOGRAM REPORT ECHO CHARGES 5 ECHO LIMITED CLINICAL DIAGNOSIS: LIMITED TO REASESS PULMONRY VALVE PRESSURES ECHOCARDIOGRAPHIC MEASUREMENTS (adult normal given) AC root (d.<3.7cm) 2.7 LV Septum d (<1.2 cm> 1.2 Valve Excursion 2.0 LV Septum (systole) 1.3 Left Atria (s.<4.0cm> 2.5 LVPW d(<1.2cm) 1.4 RV (d.<2.3cm) 3.5 LVPW (sytole) 1.7 LV diastole(<5.6CM) 3.6 MV E-F(>70mm/sec) LV systole 2.0 LVOT Diameter 1.3 MV exc.(>10mm) 1.6 Est.ejection fraction (50-75%) Pericardial Effusion N DOPPLER: LVIT A 111 E 86.0 LA RVSP 49 LVOT 137 AOP1/2T Asc. Ao 207 RVOT 82 RA 96 PA 110 AV Gradient Peak 17.12 AV Mean 9.16 AV Area 1.1 MV Gradient Peak 5.28 MV Mean 2.44 MV Area COMMENTS: FOR DR. FRANCIS Dyeing Machine Tender: Honey COHEN Laboratory Helper:2 Dr. Leonard TAPE# PACS DATE OF SERVICE: 03/30/2017 INDICATION: Assess pulmonary valve. REFERRING PHYSICIAN: Dr. Alonzo. DESCRIPTION OF PROCEDURE: This is a limited study. The left ventricle demonstrates left ventricular hypertrophy. No regional wall motion abnormalities are seen. Estimated ejection fraction is 55%. Pulmonary valve leaflets are slightly thickened. Velocity through the valve is 96 cm per ECHOCARDIOGRAM REPORT [id number] JOHANNY DOWD second, which within normal limits. Right ventricle appears normal in size and function. Tricuspid valve is structurally normal. There is mild to moderate regurgitation seen. Right ventricular systolic pressure is elevated at 49 mmHg. IMPRESSION: 1. Left ventricular hypertrophy with preserved ejection fraction of 55%. 2. Mild to moderate tricuspid regurgitation with slightly elevated pulmonary pressures. TRANSINT:[id number] Voice Confirmation ID: [id number] DOCUMENT ID: [id number] ARMANI LEONARD M.D. at 1354 CC: [id number] DICTATION DATE: 04/02/17 1556 VEHICLE BODY SANDER: 04/02/17 2234 ADM IN [facility] [address] [place] [address]
--- NOTE | 2017-04-04 13:54 | EC ---
PATIENT:JOHANNY DOWD DATE OF SERVICE: 03/26/17 SEX: F MEDICAL RECORD: [id number] DATE OF : 32 LOCATION:[facility] AGE OF PATIENT: 86 ADMISSION DATE: 03/26/17 REFERRING PHYSICIAN: INTERPRETING PHYSICIAN: ARMANI LEONARD M.D. ECHOCARDIOGRAM REPORT ECHO CHARGES 4 ECHO COMPLETE CLINICAL DIAGNOSIS: SOB/ELVATED BNP ECHOCARDIOGRAPHIC MEASUREMENTS (adult normal given) AC root (d.<3.7cm) 2.7 LV Septum d (<1.2 cm> 1.2 Valve Excursion 2.0 LV Septum (systole) 1.3 Left Atria (s.<4.0cm> 2.5 LVPW d(<1.2cm) 1.4 RV (d.<2.3cm) 3.5 LVPW (sytole) 1.7 LV diastole(<5.6CM) 3.6 MV E-F(>70mm/sec) LV systole 2.0 LVOT Diameter 1.3 MV exc.(>10mm) 1.6 Est.ejection fraction (50-75%) Pericardial Effusion N DOPPLER: LVIT A 111 E 86.0 LA RVSP 35 LVOT 137 AOP1/2T Asc. Ao 207 RVOT 83 RA PA 110 AV Gradient Peak 17.12 AV Mean 9.16 AV Area 1.1 MV Gradient Peak 5.28 MV Mean 2.44 MV Area COMMENTS: Heat Treat Technician: Honey COHEN Guest Room Attendant:Honey Leonard TAPE# PACS DATE OF SERVICE: 03/27/2017 REFERRING PHYSICIAN: Kan Alonzo MD. INDICATION: Congestive heart failure. DESCRIPTION: Left ventricle is normal in size and function. No wall motion abnormalities are noted. Estimated ejection fraction is 55%. Mitral valve is structurally normal. There is trivial regurgitation seen. Left atrium is normal in size. The aortic valve is trileaflet. Leaflets are slightly ECHOCARDIOGRAM REPORT [id number] JOHANNY DOWD thickened. There is no stenosis or regurgitation noted. Right ventricle is mildly dilated. Tricuspid valve is normal. There is mild regurgitation seen. Right ventricular systolic pressure is mildly elevated at 35 mmHg. There is no pericardial effusion noted. IMPRESSION: 1. Normal left ventricular size and function, ejection fraction 55%. 2. Trivial mitral regurgitation. 3. Aortic valve sclerosis without stenosis. 4. Mild tricuspid regurgitation. TRANSINT:[id number] Voice Confirmation ID: [id number] DOCUMENT ID: [id number] ARMANI LEONARD M.D. at 1354 CC: [id number] DICTATION DATE: 03/27/17 1845 GASTROENTEROLOGY MANAGER: 03/28/17 [address] [facility] [address] [place] [address]
[2017-04-04 15:22] LABS: SPE - A/G RATIO 0.7 (0.7-1.7); SPE - ALBUMIN 2.6 g/dL (2.9-4.4); SPE - ALPHA-1 GLOBULIN 0.6 g/dL (0.0-0.4); SPE - BETA GLOBULIN 0.9 g/dL (0.7-1.3); SPE - GAMMA GLOBULIN 1.2 g/dL (0.4-1.8); SPE - M-SPIKE Not Observed g/dL (Not Observed); SPE - TOTAL PROTEIN 6.3 g/dL (6.0-8.5)
[2017-04-04 16:35] VITALS: BP 120/86
--- NOTE | 2017-04-04 21:16 | NUR ---
UP ON SIDE OF BED.ALERT,ORIENTED. NO COMPLAINTS VOICED. IV INFUSING TO LEFT FOREARM WIHTOUT REDNESS OR EDEMA NOTED. CL IN REACH
[2017-04-04 21:27] VITALS: BP 154/67
--- NOTE | 2017-04-05 00:47 | NUR ---
RESTING QUIETLY. NO DISTRESS NOTED. CL IN REACH.
[2017-04-05 04:00] VITALS: BP 157/59
--- NOTE | 2017-04-05 05:14 | NUR ---
AWAKE WITH THE LAB AT BEDSIDE DRAWING AM LABS. PT HAS HIS BIPAP IN PLACE AND NO DISTRESS NOTED. THE BED IS LOW, RAILS UP X'S 2 WITH THE CALL LIGHT AT HAND.
[2017-04-05 05:49] LABS: BASOPHILS 0.2 % (0-2); EOSINOPHILS 0.1 % (0-7); HEMATOCRIT 37.1 % (36.0-48.0); HEMOGLOBIN 11.9 g/dL (12-16); IMMATURE GRANULOCYTES 4.7 % (0-5); MCH 26.6 pg (26.0-34.0); MCHC 32.1 g/dL (31.0-37.0); MCV 82.8 fL (80.0-100.0); MEAN PLATELET VOLUME 8.8 fL (7.4-10.4); MONOCYTES 4.9 % (2-11); NEUTROPHILS 79.1 % (40-80); RBC 4.48 10x6/uL (4.00-5.40)
[2017-04-05 05:57] LABS: PLATELET COUNT 428 10x3/uL (130-400); WBC 16.9 10x3/uL (4.8-10.8)
[2017-04-05 06:04] LABS: ALBUMIN 2.5 g/dL (3.4-5.0); ALKALINE PHOSPHATASE 73 U/L (46-116); ALT (SGPT) 30 U/L (10-68); BILIRUBIN - TOTAL 0.25 mg/dL (0.2-1.3); CALC OSMOLALITY 265 mosm/kg (275-300); CALCIUM 8.7 mg/dL (8.5-10.1); CARBON DIOXIDE 29.7 mmol/L (21.0-32.0); CHLORIDE - SERUM 95 mmol/L (98-107); CREATININE - SERUM 0.5 mg/dL (0.6-1.3); GLUCOSE 128 mg/dL (74-106); POTASSIUM - SERUM 4.7 mmol/L (3.5-5.1); PROTEIN - SERUM 6.3 g/dL (6.4-8.2); SODIUM 132 mmol/L (136-145); UREA NITROGEN 11 mg/dL (7-18); eGFR NON AFRICAN AMERICAN > 90 mL/min (90-120)
[2017-04-05 07:45] VITALS: BP 177/79
--- NOTE | 2017-04-05 09:00 | NUR ---
MEDICATION GIVEN IN IV AT THIS TIME, PT COMPLAINS OF PAIN AT THE SITE. IV FLUIDS STOPPED PER VERBAL ORDER FROM DR. ROCK. WILL RESITE IV AT A LATER TIME. PT SITTING UP ON THE SIDE OF BED. WILL CONTINUE TO MONITOR.
[2017-04-05] MEDS ORDERED: NEOSPORIN OINTM15 GM TOPICAL (10:05)
[2017-04-05] MEDS ORDERED: XALATAN 0.0052.5 ML LEFT EYE (10:06)
[2017-04-05] MEDS ORDERED: PROTONIX40 MG PO (10:06)
[2017-04-05] MEDS ORDERED: MIRALAX17 GM PO (10:06)
[2017-04-05] MEDS ORDERED: FLORAJEN3 CAPS460 MG PO (10:06)
[2017-04-05] MEDS ORDERED: TESSALON PERLE100 MG PO (10:08)
[2017-04-05] MEDS ORDERED: MUCINEX DM ER1 EAC1 PO (10:08)
[2017-04-05] MEDS ORDERED: LOVENOX40 MG/0.4 SC (10:09)
[2017-04-05] MEDS ORDERED: VIBRAMYCIN 100100 MG PO (10:09)
[2017-04-05] MEDS ORDERED: IPRAT-ALBUT 0.5-3 ML UPD ×2 (10:09)
[2017-04-05] MEDS ORDERED: LOPRESSOR25 MG PO (10:09)
--- NOTE | 2017-04-05 11:52 | NUR ---
IV REMOVED, CATH INTACT. PT AWAITING DISCHARGE TO REHAB.
--- NOTE | 2017-04-05 15:00 | NUR ---
Patient will be going to room 1111B to in patient rehab, daughter Kimi notified.
[2017-04-05] MEDS ORDERED: PREDNISONE10 MG PO (15:28)
--- NOTE | 2017-04-05 16:32 | NUR ---
PT DISCHARGED TO REHAB VIA WHEELCHAIR. REPORT CALLED TO MARCELO WRIGHT
[2017-04-09 08:08] LABS: VIRAL - RESULT No virus isolated. (())
== END 2017-04-05 16:34 | DRG 193 ==
LOC: D.ER 14:10 → D.MS 17:56
PROVIDERS: Emergency Medicine; Family Medicine; Internal Medicine; Internal Medicine Pulmonary Disease; Internal Medicine Rheumatology; Nurse Practitioner Family; ADMIT Family Medicine
PROC: 0B968ZX Drainage of Right Lower Lobe Bronchus, Via Natural or Artificial Opening Endoscopic, Diagnostic (ICD-10-PCS; principal; 2017-03-30 13:24)
DX: J18.1 Lobar pneumonia, unspecified organism (principal); J96.21 Acute and chronic respiratory failure with hypoxia; E87.1 Hypo-osmolality and hyponatremia; N39.0 Urinary tract infection, site not specified; I10 Essential (primary) hypertension; G47.33 Obstructive sleep apnea (adult) (pediatric); Z99.81 Dependence on supplemental oxygen; H35.30 Unspecified macular degeneration; J84.10 Pulmonary fibrosis, unspecified; I07.1 Rheumatic tricuspid insufficiency; R53.81 Other malaise; H91.90 Unspecified hearing loss, unspecified ear; B95.7 Other staphylococcus as the cause of diseases classified elsewhere

== ENCOUNTER 2017-04-05 15:44 | Inpatient (IN) | payer MEDICARE, BC ==
[~2017-04-05] VITALS: Ht 157.5 cm; Wt 75.8 kg
[~2017-04-05 15:44] MED LIST changes: +FLORAJEN3 CAPS460 MG PO; +IPRAT-ALBUT 0.5-3 ML UPD; +LOPRESSOR25 MG PO; +LOVENOX40 MG/0.4 SC; +MIRALAX17 GM PO; +MUCINEX DM ER1 EAC1 PO; +NEOSPORIN OINTM15 GM TOPICAL; +PREDNISONE10 MG PO; +PROTONIX40 MG PO; +TESSALON PERLE100 MG PO; +VIBRAMYCIN 100100 MG PO; +XALATAN 0.0052.5 ML LEFT EYE
[2017-04-05 16:49] VITALS: BP 151/64; BMI 30.6
--- NOTE | 2017-04-05 18:34 | NUR ---
RESTING QUIETLY IN BED. CALL LIGHT IN REACH
--- NOTE | 2017-04-05 19:30 | NUR ---
PT DENIES PAIN, ENCOURAGED PT TO COUGH AND DEEP BREATH.
[2017-04-05 19:43] VITALS: BP 151/64
--- NOTE | 2017-04-06 00:10 | NUR ---
PT ASSISTED TO BATHROOM, DENIES PAIN, NEEDS HANDS ON SUPPORT TO MAINTAIN BALANCE WHILE AMBULATING WITH WALKER. PT CONVERVISE, DENIES PAIN.
--- NOTE | 2017-04-06 03:28 | NUR ---
PT ASSISTED TO BATHROOM, PT CONCERNED ABOUT FREQUENCY FOR NEEDING TO VOID, PT USES CANE FOR BALANCE, PT REQUIRES HANDS ON TO ASSIST WITH MAINTAINING BALANCE. PT CONVERSIVE, DENIES PAIN. PT USES CPAP WHILE IN BED.
[2017-04-06 06:50] LABS: BASOPHILS 0.3 % (0-2); EOSINOPHILS 0 % (0-7); HEMATOCRIT 34.9 % (36.0-48.0); HEMOGLOBIN 11.3 g/dL (12-16); IMMATURE GRANULOCYTES 5.5 % (0-5); LYMPHOCYTES 12.6 % (15-50); MCH 26.5 pg (26.0-34.0); MCHC 32.4 g/dL (31.0-37.0); MCV 81.9 fL (80.0-100.0); MEAN PLATELET VOLUME 8.7 fL (7.4-10.4); MONOCYTES 5.4 % (2-11); NEUTROPHILS 76.2 % (40-80); PLATELET COUNT 375 10x3/uL (130-400); RBC 4.26 10x6/uL (4.00-5.40); RDW 14.2 % (11.5-14.5); WBC 17.2 10x3/uL (4.8-10.8)
[2017-04-06 06:51] LABS: CALC OSMOLALITY 264 mosm/kg (275-300); CALCIUM 8.7 mg/dL (8.5-10.1); CARBON DIOXIDE 32.4 mmol/L (21.0-32.0); CHLORIDE - SERUM 94 mmol/L (98-107); CREATININE - SERUM 0.6 mg/dL (0.6-1.3); GLUCOSE 121 mg/dL (74-106); POTASSIUM - SERUM 4.4 mmol/L (3.5-5.1); SODIUM 131 mmol/L (136-145); eGFR NON AFRICAN AMERICAN > 90 mL/min (90-120)
[2017-04-06 06:57] LABS: UREA NITROGEN 14 mg/dL (7-18)
--- NOTE | 2017-04-06 07:02 | NUR ---
ASSISTED PT TO BATHROOM, PT SOB WITH AMBULATION, MILD PRODUCTIVE COUGH, PT STATES SHE FEELS LIKES SHE HAS PULLED A LOWER RIGHT ABDOMINAL MUSCLE.
--- NOTE | 2017-04-06 07:47 | NUR ---
PT IS SITTING ON THE SIDE OF HER BED, FEEDING SELF BREAKFAST. NO SWALLOW PROBLEMS NOTED. PT IS ALERT AND ORIENTED X 3. PT IS [place], AND WEARS HEARING AIDES BILATERALLY. O2 IS ON @ 4LPM PER NC. NO SOB NOTED. NO COUGH NOTED. SR'S ARE UP X 2 IN BED. CALL LIGHT AND BEDSIDE TABLE ARE WITHIN EASY REACH.
[2017-04-06 07:51] VITALS: BP 144/68
[2017-04-06 07:52] VITALS: BP 144/68
--- NOTE | 2017-04-06 10:44 | NUR ---
PT IS PARTICIPATING IN THERAPY AT THIS TIME.
--- NOTE | 2017-04-06 13:36 | NUR ---
PT IS PARTICIPATING IN THERAPY AT THIS TIME.
[2017-04-06 15:06] VITALS: Ht 157.5 cm; Wt 75.8 kg
--- NOTE | 2017-04-06 17:43 | NUR ---
PT IS FEEDING SELF SUPPER IN HER ROOM. NO ACUTE DISTRESS NOTED.
[2017-04-06 18:38] VITALS: BP 140/56
--- NOTE | 2017-04-06 20:10 | NUR ---
PT. IN BED WITH HOB UP FOR COMFORT WITH EYES CLOSED AND RESP. EVEN. PT. AWAKENS EASILY FOR ASSESSMENT. O2 ON AT 4L/MIN VIA N/C WITHOUT ANY S/S DISTRESS. WOULD LIKE HER MIRALAX TONIGHT WITH OJ. CALL LIGHT WITHIN REACH.
--- NOTE | 2017-04-06 23:23 | NUR ---
PT. IN BED WITH HOB UP FOR COMFORT AND IS WEARING HER NASAL CPAP. EYES CLOSED AND RESP. EVEN WITH CALL LIGHT WITHIN REACH.
--- NOTE | 2017-04-07 03:06 | NUR ---
PT. IN BED WITH HOB UP FOR COMFORT WITH NASAL CPAP ON WITHOUT ANY S/S DISTRESS. EYES CLOSED AND RESP. EVEN. CALL LIGHT WITHIN REACH.
--- NOTE | 2017-04-07 06:42 | NUR ---
PT. IN BED WITH HOB UP FOR COMFORT WITH EYES CLOSED AND NASAL CPAP IN PLACE. CALL LIGHT WITHIN REACH.
--- NOTE | 2017-04-07 08:15 | NUR ---
PT RESTING IN BED WITH EYES OPEN CALL LIGNT IN REACH EATING BREAKFAST TOLERATING WELL
--- NOTE | 2017-04-07 08:35 | NUR ---
UP TO BATHROOM SINK BRUSHING TEETH;ATTENDED PER ELECTROPLATING WORKER.
--- NOTE | 2017-04-07 18:11 | NUR ---
PT RESTING IN BED WATCHING TV CALL LIGHT IN REACH NO PRO COLETTE WILL MONITER
[2017-04-07 18:45] VITALS: BP 147/63
--- NOTE | 2017-04-07 23:08 | NUR ---
PT. IN BED WITH HOB UP FOR COMFORT WITH EYES CLOSED AND RESP. EVEN. NASAL CPAP IN PLACE WITHOUT ANY ALARMS. CALL LIGHT WITHIN REACH.
--- NOTE | 2017-04-08 03:21 | NUR ---
PT. IN BED WITH HOB UP FOR COMFORT WITH EYES CLOSED AND RESP. EVEN. NASAL CPAP IN PLACE AND NO S/S DISTRESS OBSERVED. CALL LIGHT WITHIN REACH.
--- NOTE | 2017-04-08 07:30 | NUR ---
RESTING QUIETLY.CL IN REACH.
[2017-04-08 09:36] VITALS: BP 129/65
--- NOTE | 2017-04-08 09:52 | NUR ---
PATIENT ALERT/ORIENT. OXYGEN ON AT 4L PER N/C. VERY HARD OF HEARING. HAS BILATERAL HEARING AIDS. USING CALL LIGHT FOR NEEDS. CALL LIGHT WITHIN REACH.
--- NOTE | 2017-04-08 16:10 | NUR ---
PATIENT SITTING UP ON THE EDGE OF HER BED. VISITORS IN ROOM. VOICES NO NEEDS AT THIS TIME
--- NOTE | 2017-04-08 19:30 | NUR ---
PT. IN BED WITH HOB SLIGHTLY ELEVATED WITH EYES CLOSED AND RESP. EVEN. O2 ON VIA N/C AT 4L/MIN WITHOUT ANY S/S DISTRESS OBSERVED. PT. AWAKENS EASILY FOR ASSESSMENT. NO VOICED NEEDS AT THIS TIME BUT WILL WANT HER O2 SWITCHED OVER TO HER CPAP AFTER NIGHT TIME MEDS GIVEN. CALL LIGHT WITHIN REACH.
[2017-04-08 22:44] VITALS: BP 153/71
--- NOTE | 2017-04-08 23:04 | NUR ---
PT. IN BED WITH HOB UP FOR COMFORT WITH EYES CLOSED AND RESP. EVEN. NASAL CPAP IN PLACE AND NO VISIBLE S/S DISTRESS OBSERVED. CALL LIGHT WITHIN REACH.
--- NOTE | 2017-04-09 03:02 | NUR ---
PT. IN BED WITH HOB UP FOR COMFORT WITH NASAL CPAP ON WITHOUT ANY PROBLEMS. EYES CLOSED AND RESP. EVEN. CALL LIGHT WITHIN REACH.
--- NOTE | 2017-04-09 06:48 | NUR ---
PT. IN BED WITH HOB UP FOR COMFORT WITH NASAL CPAP ON. PT. HAD COUGHING SPELL EARLIER AND IT HAS STOPPED. PT. RESTING NOW. NO VOICED NEEDS AND HER CALL LIGHT IS WITHIN REACH.
--- NOTE | 2017-04-09 08:15 | NUR ---
PT RESTING IN BED WITH EYES OPEN CALL LIGHT IN REACH WILL MONITER
[2017-04-09 09:12] VITALS: BP 181/74
--- NOTE | 2017-04-09 16:04 | NUR ---
PT RESTING IN BED WITH EYES OPEN CALL LIGHT IN REACH NO PROBLEMS WILL MONITER
--- NOTE | 2017-04-09 19:18 | NUR ---
RESTING QUIETLY IN BED. CALL LIGHT IN REACH
[2017-04-09 20:07] VITALS: BP 130/54
--- NOTE | 2017-04-09 21:35 | NUR ---
PT HS MEDS ADMINISTERED. PT DENIES NEEDS. WCTM.
--- NOTE | 2017-04-10 00:35 | NUR ---
PT RESTING, EYES CLOSED. BED LOW. CL IN REACH.
--- NOTE | 2017-04-10 03:33 | NUR ---
PT RESTING, EYES CLOSED. BED LOW. CL IN REACH. WCTM.
--- NOTE | 2017-04-10 07:12 | NUR ---
RESTING QUIETLY IN BED WITH EYES CLOSED. CALL LIGHT IN REACH
[2017-04-10 08:48] VITALS: BP 175/68
--- NOTE | 2017-04-10 10:18 | NUR ---
PATIENT ALERT/ORIENT. USING CALL LIGHT FOR NEEDS. OXYGEN ON AT 3L PER N/C. PATIENT WEARS OWN C-PAP AT HS. NO RESPITORY DISTRESS NOTED.
--- NOTE | 2017-04-10 13:52 | NUR ---
PATIENT SHOWERED WITH HELP FROM NURSE ASST.
--- NOTE | 2017-04-10 19:40 | NUR ---
PT HS MEDS ADMINISTERED. ASSESSMENT COMPLETE. PT DENIES NEEDS. CPAP IN PLACE. WCTM.
[2017-04-10 19:45] VITALS: BP 140/53
--- NOTE | 2017-04-10 19:52 | NUR ---
PT HS MEDS ADMINISTERED. PT CPAP MACHINE ON. PT DENIES FURTHER NEEDS AT THIS TIME. BED LOW. CL IN REACH.
--- NOTE | 2017-04-11 02:40 | NUR ---
PT ASSISTED TO BR. PT BACK IN BED AND DENIES FURTHER NEEDS. WCTM.
[2017-04-11 06:52] LABS: BASOPHILS 0.1 % (0-2); HEMATOCRIT 39.3 % (36.0-48.0); HEMOGLOBIN 12.6 g/dL (12-16); IMMATURE GRANULOCYTES 2.2 % (0-5); LYMPHOCYTES 17.4 % (15-50); MCH 26.4 pg (26.0-34.0); MCHC 32.1 g/dL (31.0-37.0); MCV 82.4 fL (80.0-100.0); MEAN PLATELET VOLUME 8.7 fL (7.4-10.4); MONOCYTES 5.1 % (2-11); NEUTROPHILS 74.2 % (40-80); PLATELET COUNT 331 10x3/uL (130-400); RBC 4.77 10x6/uL (4.00-5.40); RDW 14.7 % (11.5-14.5); WBC 17.5 10x3/uL (4.8-10.8)
[2017-04-11 06:57] LABS: CALC OSMOLALITY 264 mosm/kg (275-300); CALCIUM 8.4 mg/dL (8.5-10.1); CARBON DIOXIDE 34.6 mmol/L (21.0-32.0); CHLORIDE - SERUM 94 mmol/L (98-107); CREATININE - SERUM 0.6 mg/dL (0.6-1.3); GLUCOSE 79 mg/dL (74-106); POTASSIUM - SERUM 4.1 mmol/L (3.5-5.1); SODIUM 132 mmol/L (136-145); UREA NITROGEN 15 mg/dL (7-18); eGFR NON AFRICAN AMERICAN > 90 mL/min (90-120)
--- NOTE | 2017-04-11 08:00 | NUR ---
PATIENT ALERT/ORIENT. SITTING UP IN BED TO EAT BREAKFAST. OXYGEN ON A 4L PER N/C. PATIENT WEARS A C-PAP AT HS. CALL LIGHT WITHIN REACH. VOICES NO NEEDS AT THIS.
[2017-04-11 08:09] VITALS: BP 183/71
--- NOTE | 2017-04-11 10:35 | NUR ---
PATIENT IN REHAB ROOM. WORKING WITH PHYSICAL THERAPIST. DENIES ANY PAIN/DISC AT THIS TIME.
--- NOTE | 2017-04-11 10:45 | NUR ---
PRN AMBROSIO LEOS PER PATIENT REQUEST
--- NOTE | 2017-04-11 15:08 | NUR ---
SITTING UP IN WC.CL IN REACH.
--- NOTE | 2017-04-11 19:34 | NUR ---
LYNING IN BED WITH EYES OPEN. PLEASANT AND SOCIAL.ABLE TO VOICE NEEDS. DENIES ANY PAIN AT THIS TIME. O2@4 LITERS PER NASAL CANNULA. CALL LIGHT AND BEDSIDE TABLE IN REACH.
--- NOTE | 2017-04-11 20:46 | NUR ---
LYING IN BED WIYH EYES OPEN AND TV ON. PLEASANT AND COOPERATIVE. ABLE TO VOICE NEEDS. DENIES ANY PAIN OR DISCOMFORT. CHER-AE HEIGHTS WITH HEARING AIDES IN PLACE. LUNG SOUNDS CLEAR BILATERALLY. ACTIVE BOWEL SOUND IN ALL 4 QUADRANTS. NO EDEMA TO LOWER EXTRWEMITIES. SKIN WARM, DRY AND INTACT. O2@4 LITERS PER NASAL CANNULA.
--- NOTE | 2017-04-11 21:43 | NUR ---
RESTING IN BED WITH EYES CLOSED. NO SIGNS OR SYMPTOMS OF DISTRESS OBSERVED. CPAP IN PLACE. CALL LIGHT AND OVERBED TABLE IN REACH.
--- NOTE | 2017-04-11 22:14 | NUR ---
RESTING IN BED WITH EYES CLOSED. nO SIGNS OR SYMPTOMS OF DISTRESS OBSERVED. CONTINENT OF BOWEL AND BLADDER. USES CALL LIGHT FOR ASSIST. CALL LIGHT AND OVERBED TABLE IN REACH.
[2017-04-11 23:15] VITALS: BP 142/64
[2017-04-11 23:44] VITALS: BP 142/64
--- NOTE | 2017-04-12 | NUR ---
ASSISTED TO TOILET. REQUIRED SUPERVION ONLY. GAIT STEADY. USES A CANE TO AMBULATE. DENIES ANY PAIN AND CALL LIGHT IN REACH. CPAP IN PLACE AT THIS TIME.
--- NOTE | 2017-04-12 02:08 | NUR ---
RESING IN BED WITH EYES CLOSED. CPAP IN PLACE AND CALL LIGHT IN REACH.
--- NOTE | 2017-04-12 04:07 | NUR ---
RESTING IN BED WITH EYES CLOSED. CALL LIGHT IN REACH.
--- NOTE | 2017-04-12 06:00 | NUR ---
ASSISTED UP AND TO TOILET. DRESSED AND LYING IN BED. DENIES ANY PAIN.
--- NOTE | 2017-04-12 07:27 | NUR ---
RESTING QUIETLY IN BED.CL IN REACH.
[2017-04-12 08:35] VITALS: BP 153/56
--- NOTE | 2017-04-12 11:35 | NUR ---
PATIENT ADMITTED TO REHAB FROM ACUTE FLOOR. DR. MCNEAL IS PATIENT PCP AND SHE USES [facility] [address] FOR HER PHARMACY NEEDS. SHE HAS O2, ROLLING WALKER AT HOME. WILL CONTINUE TO FOLLOW WITH PATIENT AND WILL ASSIST WITH DISCHARGE NEEDS.
--- NOTE | 2017-04-12 12:34 | NUR ---
PT UP IN WHEELCHAIR CALL LIGHT IN REACH NO PROBLEMS WILL MONITER
--- NOTE | 2017-04-12 13:22 | NUR ---
Nutrition Monitoring and Eval: Pt reported that her appetite is great. She is drinking Ensure. Pt is eating 83% meal avg on an AHA diet. +BM 04/11/17. Meds and labs reviewed. Pt remains at low nutritional risk based on current chart review. RD will continue to monitor pt progress per policy.
--- NOTE | 2017-04-12 13:43 | NUR ---
PATIENT DISCHARGING IN AM HOME WITH FAMILY IN AM. [facility] AT HOME WILL RESUME CARE . NO DME NEEDED AT THIS TIME. DR. MCNEAL 04/23/17 @ 11:15, DR. ALVARADO 05/23/17 @ 1:00, DR. KNOTT 05/08/17 @ 1:30. PATIENT CHOICE FORM FOR HOME HEALTH AND [facility] FORM SIGNED , EXPLAINED AND FILED IN CHART. WILL CONTINUE TO FOLLOW WITH PATIENT UNTIL DISCHARGED
--- NOTE | 2017-04-12 19:45 | NUR ---
PT. IN BED WITH HOB UP FOR COMFORT WITH O2 ON AT 2L/MIN VIA N/C WITHOUT ANY S/S DISTRESS OBSERVED. ASSESSMENT COMPLETED. PT. ANXIOUS ABOUT GOING HOME TOMORROW. CALL LIGHT WITHIN REACH.
[2017-04-12 20:49] VITALS: BP 154/63
--- NOTE | 2017-04-12 23:21 | NUR ---
PT. IN BED WITH HOB UP FOR COMFORT WITH EYES CLOSED AND RESP. EVEN. NASAL CPAP ON WITHOUT ANY PROBLEMS. CALL LIGHT WITHIN REACH.
--- NOTE | 2017-04-13 03:16 | NUR ---
PT. IN BED WITH HOB ELEVATED FOR COMFORT. EYES CLOSED AND RESP. EVEN WITH NASAL CPAP IN PLACE. NO S/S DISTRESS AND HER CALL LIGHT IS WITHIN REACH.
[2017-04-13 06:37] LABS: BASOPHILS 0.1 % (0-2); EOSINOPHILS 0.4 % (0-7); HEMATOCRIT 38.3 % (36.0-48.0); HEMOGLOBIN 12.2 g/dL (12-16); IMMATURE GRANULOCYTES 1.2 % (0-5); LYMPHOCYTES 17.8 % (15-50); MCH 26.2 pg (26.0-34.0); MCHC 31.9 g/dL (31.0-37.0); MCV 82.2 fL (80.0-100.0); MEAN PLATELET VOLUME 8.8 fL (7.4-10.4); MONOCYTES 5.1 % (2-11); NEUTROPHILS 75.4 % (40-80); PLATELET COUNT 272 10x3/uL (130-400); RBC 4.66 10x6/uL (4.00-5.40); RDW 14.8 % (11.5-14.5); WBC 16.3 10x3/uL (4.8-10.8)
[2017-04-13 06:53] LABS: CALC OSMOLALITY 262 mosm/kg (275-300); CALCIUM 8.6 mg/dL (8.5-10.1); CHLORIDE - SERUM 95 mmol/L (98-107); CREATININE - SERUM 0.6 mg/dL (0.6-1.3); GLUCOSE 86 mg/dL (74-106); POTASSIUM - SERUM 4.3 mmol/L (3.5-5.1); SODIUM 131 mmol/L (136-145); UREA NITROGEN 15 mg/dL (7-18); eGFR NON AFRICAN AMERICAN > 90 mL/min (90-120)
--- NOTE | 2017-04-13 08:15 | NUR ---
PT RESTING IN BED WITH EYES OPEN EATING BREAKFAST CALL LIGHT IN REACH NO PROBLEMS WILL MONITER
[2017-04-13 08:51] VITALS: BP 174/66
--- NOTE | 2017-04-13 10:41 | NUR ---
SITTING UP IN BED.CL IN REACH.
--- NOTE | 2017-04-13 13:00 | NUR ---
PT DISCCHARGED TO HOME VIA WHEELCHAIR WITH DAUGHTER MEDS CALLED TO [facility] [address] PT LEFT ON O2 AT 4 LITERS TOLERATED WELL
--- NOTE | 2017-04-13 13:07 | NUR ---
NEBULIZER ORDERED FOR PATIENT AT HOME FROM [facility]. ORDER HAS BEEN FAXED WITH CONFORMATION RECIEVED
== END 2017-04-13 14:31 | disposition home or self-care (01) | DRG 193 ==
LOC: D.REHAB 15:44
PROVIDERS: ADMIT Emergency Medicine
DX: J18.1 Lobar pneumonia, unspecified organism (principal); J96.21 Acute and chronic respiratory failure with hypoxia; E87.1 Hypo-osmolality and hyponatremia; I10 Essential (primary) hypertension; G47.33 Obstructive sleep apnea (adult) (pediatric); J84.10 Pulmonary fibrosis, unspecified; Z99.81 Dependence on supplemental oxygen; H35.30 Unspecified macular degeneration; H91.90 Unspecified hearing loss, unspecified ear

== ENCOUNTER 2017-06-23 15:49 | Inpatient (IN) | payer MEDICARE, BC ==
[~2017-06-23] VITALS: Ht 157.5 cm; Wt 68.0 kg
[2017-06-23 16:12] LABS: BASOPHILS 0.1 % (0-2); EOSINOPHILS 0 % (0-7); HEMATOCRIT 41.1 % (36.0-48.0); HEMOGLOBIN 13.2 g/dL (12-16); IMMATURE GRANULOCYTES 1.4 % (0-5); LYMPHOCYTES 9.5 % (15-50); MCH 27.2 pg (26.0-34.0); MCHC 32.1 g/dL (31.0-37.0); MCV 84.7 fL (80.0-100.0); MEAN PLATELET VOLUME 8.9 fL (7.4-10.4); MONOCYTES 3.5 % (2-11); NEUTROPHILS 85.5 % (40-80); PLATELET COUNT 347 10x3/uL (130-400); RBC 4.85 10x6/uL (4.00-5.40); RDW 15.7 % (11.5-14.5); WBC 13.2 10x3/uL (4.8-10.8)
[2017-06-23 16:44] LABS: ALKALINE PHOSPHATASE 135 U/L (46-116); ALT (SGPT) 22 U/L (10-68); CALC OSMOLALITY 267 mosm/kg (275-300); CALCIUM 8.6 mg/dL (8.5-10.1); CARBON DIOXIDE 28.8 mmol/L (21.0-32.0); CHLORIDE - SERUM 96 mmol/L (98-107); CREATININE - SERUM 0.7 mg/dL (0.6-1.3); GLUCOSE 150 mg/dL (74-106); POTASSIUM - SERUM 4.6 mmol/L (3.5-5.1); PROTEIN - SERUM 7.2 g/dL (6.4-8.2); SODIUM 131 mmol/L (136-145); UREA NITROGEN 17 mg/dL (7-18); eGFR NON AFRICAN AMERICAN 84 mL/min (90-120)
[2017-06-23 16:55] LABS: CKMB 0.8 U/L (0.0-3.6); CREATINE KINASE 32 UL (21-215); PRO BNP 1852 pg/mL (0-450); TROPONIN-I < 0.017 ng/mL (0.000-0.060)
[2017-06-23 18:45] VITALS: BP 188/90
--- NOTE | 2017-06-23 18:45 | NUR ---
RECEIVED TO ROOM TO 2233 FROM ER WITH DMITRIY JO AT BEDSIDE. ASSISTED PT TO AND FROM BATHROOM AND PLACED BED ALARM, NON SKID SOCKS, AND YELLOW WRIST BAND ON PT. OXYGEN ON 5L VIA NC. VITAL SIGNS OBTAINED AND PLACED ON CHART. WILL CONTINUE WITH PLAN OF CARE, CALL LIGHT IN REACH.
--- NOTE | 2017-06-23 20:02 | NUR ---
PATIENT RESTING IN BED WITH FAMILY AT BEDSIDE. REVIEWED PATIENT'S MEDS AND PHARM. PATIENT CHOKED ON HER FOOD WHILE SITTING IN BED, HOWEVER, WAS ABLE TO COUGH THE FOOD UP. PATIENT HAS NO VISIBLE SIGNS OF DISTRESS AND DENIES OTHER NEEDS AT THIS TIME. BED IN LOWEST POSITION, CALL LIGHT WITHIN REACH, AND BED ALARM ON. ENCOURAGED THE PATIENT TO CALL IF SHE HAS NEEDS.
[2017-06-23 20:03] VITALS: BP 167/95
[2017-06-23 23:12] VITALS: BP 188/90; BMI 27.5
[2017-06-23 23:48] VITALS: BP 179/76
[2017-06-24 04:06] VITALS: BP 173/80
--- NOTE | 2017-06-24 07:45 | NUR ---
ASSESSMENT PER FLOW SHEET.PT WITHOUT DISTRESS.DENIES NEEDS.FALL PREVENTION IN PLACE WITH ADAIR MAT ON AND FUNCTIONING.DOOR OPEN
[2017-06-24 10:00] VITALS: BP 169/84
[2017-06-24 12:20] VITALS: BP 149/68
[2017-06-24 16:06] VITALS: BP 173/74
--- NOTE | 2017-06-24 18:36 | NUR ---
RESPIRATORY CALLED TO ROOM,PT CHOKING ON FOOD AND SATS DROPPED TO 50%.ORDERS RECIEVED AND INITIATED.PT NPO
[2017-06-24 20:43] VITALS: BP 164/77
[2017-06-25] VITALS: BP 139/63
--- NOTE | 2017-06-25 02:00 | NUR ---
PATIENT RESTING IN BED AND DENIES NEEDS AT THIS TIME. COMPLETED ASSESSMENT AND VITALS. EXPLAINED TO PATIENT THAT SHE IS NPO UNTIL HER SWALLOW EVAL TOMORROW. PATIENT DENIES OTHER NEEDS AT THIS TIME. BED IN LOWEST POSITION, CALL LIGHT WITHIN REACH, AND ADAIR ALARM ON. ENCOURAGED THE PATIENT TO CALL IF SHE HAS NEEDS.
--- NOTE | 2017-06-25 03:12 | NUR ---
NOTIFIED BY NYDIA GUERRIER THAT WHILE HE WAS ASSISTING THE PATIENT OFF OF THE BEDPAN SHE WAS HAVING A DIFFICULT TIME BREATHING AND WAS TURING "RED IN THE FACE". THE PATIENT'S O2 WAS 77% ON 5L WITH AN OXIMIZER. I INSUTRUCTED THE PATIENT TO TAKE DEEP BREATHS AND TURNED HER OXYGEN UP TO 7L. PATIENT'S O2 IS NOW 92-94% ON 7L. I NOTIFIED RT THAT THE PATIENT IS NOW ON 7L WITH AN OXIMIZER. RT STATED TO KEEP THE PATIENT ON 7L O2.
[2017-06-25 04:00] VITALS: BP 165/80
[2017-06-25 05:20] LABS: BASOPHILS 0.1 % (0-2); EOSINOPHILS 0 % (0-7); HEMOGLOBIN 12.2 g/dL (12-16); IMMATURE GRANULOCYTES 0.6 % (0-5); LYMPHOCYTES 2.4 % (15-50); MCH 26.9 pg (26.0-34.0); MCHC 32.1 g/dL (31.0-37.0); MCV 83.9 fL (80.0-100.0); MONOCYTES 2.3 % (2-11); NEUTROPHILS 94.6 % (40-80); PLATELET COUNT 345 10x3/uL (130-400); RBC 4.53 10x6/uL (4.00-5.40); RDW 15.9 % (11.5-14.5)
[2017-06-25 05:26] LABS: WBC 19.8 10x3/uL (4.8-10.8)
[2017-06-25 05:37] LABS: ALBUMIN 2.8 g/dL (3.4-5.0); ALKALINE PHOSPHATASE 112 U/L (46-116); ALT (SGPT) 19 U/L (10-68); C-REACTIVE PROTEIN 2.3 mg/dL (0.0-0.9); CALC OSMOLALITY 274 mosm/kg (275-300); CALCIUM 8.6 mg/dL (8.5-10.1); CARBON DIOXIDE 28.3 mmol/L (21.0-32.0); CHLORIDE - SERUM 100 mmol/L (98-107); CREATININE - SERUM 0.6 mg/dL (0.6-1.3); GLUCOSE 172 mg/dL (74-106); PHOSPHOROUS 3.4 mg/dL (2.5-4.9); PROTEIN - SERUM 6.4 g/dL (6.4-8.2); SODIUM 135 mmol/L (136-145); UREA NITROGEN 14 mg/dL (7-18); eGFR NON AFRICAN AMERICAN > 90 mL/min (90-120)
--- NOTE | 2017-06-25 08:10 | NUR ---
PT AOX4 RESP EVEN AND NONLABORED PT DENIES NEEDS AT THIS TIME IV TO RIGHT FOREARM PATENT AND INTACT AT THIS TIME SRX2 BED AT LOWEST SETTING CALL LIGHT WITHIN REACH WILL CONTINUE TO MONITOR
[2017-06-25 08:31] VITALS: BP 136/82
--- NOTE | 2017-06-25 11:31 | NUR ---
Patient Name: JOHANNY DOWD Admission Status: ER Accout number: [id number] Admission Date: 06-23-2017 : 1931 Admission Diagnosis: Attending: IDANIA RAMOS Current LOS: 2 Anticipated DC Date: 06-29-2017 Planned Disposition: Home with Home Health Primary Insurance: MEDICARE A & B Discharge Planning Comments: PATIENT LIVES AT HOME WITH SON (DANNY) AND HER DAUGHTER (EFRA) WILL DRIVE HER HOME AT DISCHARGE. PATIENT HAS NO STEPS OR STAIRS AT HER HOME. PATIENT IS INDEPENDENT WITH HER CARE EXCEPT HER DAUGHTER HELPS WITH MEDICATIONS. PATIENT HAS A WALKER, CANE, NEBULIZER, C-PAP, OXYGERN, PORT O2, AND WALK IN TUB BENCH AT HOME. PATIENT WILL HAVE [facility] AT DISCHARGE. CM WILL CONTINUE TO FOLLOW PATIENT WITH D/C NEEDS AND PLANS. PCP DR. FRED[facility] SANTIAGO- [phone] EFRA DONALDSON [phone] Organic Preparation Analyst: Lorrie Pugh Is the patient Alert and Oriented? Yes 0 * How many steps to enter\exit or inside your home? 0 0 * PCP DR. MCNEAL 0 * [facility]acy [facility] * Preadmission Environment Home with Family 0 * ADLs Partial Dependent 0 * Partial ADLs (Assistance needed) Medication Management 0 * Equipment Cane CPAP Nebulizer Oxygen Walker 0 * Other Equipment PORTABLE O2, WALK IN TUB BENCH 0 * List name and contact numbers for known caregivers / representatives who currently or will assist patient after discharge: EFRA KNAPP (DAUGHTER) [phone] * Community resources currently utilized None 0 * Additional services required to return to the preadmission environment? Yes 0 * Can the patient safely return to the preadmission environment? Yes 0 * Has this patient been hospitalized within the prior 30 days at any hospital? No
[2017-06-25 12:28] VITALS: BP 124/99
[2017-06-25 14:49] VITALS: Ht 157.5 cm; Wt 68.0 kg
[2017-06-25 16:38] VITALS: BP 146/89
--- NOTE | 2017-06-25 19:32 | NUR ---
OT NOTE: PT COMPLETED BED MOB /SUPINE TO SIT WITH SBA. REID EDUCATED PT TO UTILIZE CALL LIGHT TO DECREASE FALL RISK. PT COMPLETED SIMPLE ADL WITH SET UP. PT COMPLETED BUE AROM EXS FOR INCREASED AX TOLERANCE WITH ADLS. THANK YOU, JEANETTE JEAN/Shaylee
--- NOTE | 2017-06-25 20:05 | NUR ---
PATIENT RESTING IN BED AND REQUESTED A WARM PACK FOR HER HEADACHE. PATIENT DENIES OTHER NEEDS AT THIS TIME. ENCOURAGED THE PATIENT TO CALL IF HER HEADACHE CONTINUES OR IF SHE HAS OTHER NEEDS. BED IN LOWEST POSITION, CALL LIGHT WITHIN REACH, AND BED ALARM ON.
[2017-06-26] VITALS: BP 162/71
[2017-06-26 04:00] VITALS: BP 159/69
[2017-06-26 09:38] LABS: BASOPHILS 0.1 % (0-2); EOSINOPHILS 0 % (0-7); HEMATOCRIT 41.9 % (36.0-48.0); HEMOGLOBIN 13.4 g/dL (12-16); IMMATURE GRANULOCYTES 0.7 % (0-5); LYMPHOCYTES 2.2 % (15-50); MCH 27.3 pg (26.0-34.0); MCV 85.5 fL (80.0-100.0); MEAN PLATELET VOLUME 9.3 fL (7.4-10.4); MONOCYTES 4.3 % (2-11); NEUTROPHILS 92.7 % (40-80); PLATELET COUNT 400 10x3/uL (130-400); RDW 16.2 % (11.5-14.5); WBC 28.5 10x3/uL (4.8-10.8)
[2017-06-26 09:45] LABS: ALBUMIN 3.2 g/dL (3.4-5.0); ANION GAP 14.7 mmol/L (8-16); BILIRUBIN - TOTAL 0.28 mg/dL (0.2-1.3); CALCIUM 8.5 mg/dL (8.5-10.1); CARBON DIOXIDE 26.1 mmol/L (21.0-32.0); POTASSIUM - SERUM 3.8 mmol/L (3.5-5.1)
[2017-06-26 09:46] LABS: CREATININE - SERUM 0.9 mg/dL (0.6-1.3)
[2017-06-26 12:56] VITALS: BP 184/87
[2017-06-26 16:27] VITALS: BP 184/80
--- NOTE | 2017-06-26 19:50 | NUR ---
ASSISTED PATIENT FROM THE CHAIR TO BED. PATIENT IS RESTING WITH NO VISIBLE SIGNS OF DISTRESS. PATIENT DENIES OTHER NEEDS AT THIS TIME. BED IN LOWEST POSITION, CALL LIGHT WITHIN REACH, AND ADAIR ALARM ON. ENCOURAGED THE PATIENT TO CALL IF SHE HAS NEEDS.
[2017-06-26 20:00] VITALS: BP 179/91
[2017-06-27] VITALS: BP 166/82
[2017-06-27 05:50] LABS: HEMATOCRIT 42.7 % (36.0-48.0); HEMOGLOBIN 13.7 g/dL (12-16); MCH 26.9 pg (26.0-34.0); MCHC 32.1 g/dL (31.0-37.0); MCV 83.9 fL (80.0-100.0); MEAN PLATELET VOLUME 9.3 fL (7.4-10.4); PLATELET COUNT 389 10x3/uL (130-400); RBC 5.09 10x6/uL (4.00-5.40); RDW 15.7 % (11.5-14.5); WBC 22.7 10x3/uL (4.8-10.8)
[2017-06-27 05:58] LABS: ALBUMIN 3.2 g/dL (3.4-5.0); ALKALINE PHOSPHATASE 121 U/L (46-116); ALT (SGPT) 32 U/L (10-68); CALC OSMOLALITY 270 mosm/kg (275-300); CARBON DIOXIDE 30.5 mmol/L (21.0-32.0); CHLORIDE - SERUM 96 mmol/L (98-107); CREATININE - SERUM 0.7 mg/dL (0.6-1.3); POTASSIUM - SERUM 3.8 mmol/L (3.5-5.1); PROTEIN - SERUM 6.8 g/dL (6.4-8.2); SODIUM 134 mmol/L (136-145); UREA NITROGEN 13 mg/dL (7-18); eGFR NON AFRICAN AMERICAN 84 mL/min (90-120)
[2017-06-27 06:11] LABS: GLUCOSE 161 mg/dL (74-106)
[2017-06-27 06:49] LABS: LYMPHOCYTES 6 % (15-50); MONOCYTES 3 % (2-11); NEUTROPHILS 88 % (40-80); PLATELET ESTIMATE NORMAL; ROULEAUX OCC
[2017-06-27 08:02] VITALS: BP 163/82
[2017-06-27 12:19] VITALS: BP 174/82
--- NOTE | 2017-06-27 15:50 | NUR ---
PT SITTING UP IN CHAIR, NO VISABLE SIGNS OF PAIN OR DISCOMFORT AT THIS TIME. BED IN LOW POSITION AND CALL LIGHT WITHIN REACH. WILL CONTINUE TO MONITOR.
[2017-06-27 20:00] VITALS: BP 172/72
--- NOTE | 2017-06-27 21:50 | NUR ---
REC'D SITTING UP IN BED. ALERT AND ORIENTED X4. DENIED PAIN AT THIS TIME. IS HARD OF HEARING. DENIED NEEDS AT THIS TIME. NO DISTRESS NOTED. INSTRUCTED TO CALL IF NEEDED ANYTHING, VERBALIZED UNDERSTANDING. BED LOW, LOCKED, CALL LIGHT IN REACH. ON 5L OF O2
[2017-06-28] VITALS: BP 166/64
--- NOTE | 2017-06-28 02:18 | NUR ---
PATIENT IS AWAKE, AND ALERT. RECIEVING AN UPDRAFT AT THIS TIME. C-PAP ON. BED IN LOWEST POSITION, CALL LIGHT IN REACH. BED RAILS UP X'S 2.
[2017-06-28 05:55] LABS: BASOPHILS 0.1 % (0-2); EOSINOPHILS 0 % (0-7); HEMATOCRIT 42.2 % (36.0-48.0); HEMOGLOBIN 13.5 g/dL (12-16); LYMPHOCYTES 4.8 % (15-50); MCH 26.9 pg (26.0-34.0); MCV 84.1 fL (80.0-100.0); MEAN PLATELET VOLUME 9.3 fL (7.4-10.4); MONOCYTES 2.6 % (2-11); NEUTROPHILS 91.5 % (40-80); RBC 5.02 10x6/uL (4.00-5.40); RDW 15.7 % (11.5-14.5)
[2017-06-28 05:57] LABS: PLATELET COUNT 310 10x3/uL (130-400); WBC 11.2 10x3/uL (4.8-10.8)
[2017-06-28 06:13] LABS: ALBUMIN 2.8 g/dL (3.4-5.0); ALKALINE PHOSPHATASE 99 U/L (46-116); ALT (SGPT) 29 U/L (10-68); CALC OSMOLALITY 277 mosm/kg (275-300); CALCIUM 8.7 mg/dL (8.5-10.1); CARBON DIOXIDE 32.1 mmol/L (21.0-32.0); CHLORIDE - SERUM 97 mmol/L (98-107); CREATININE - SERUM 0.6 mg/dL (0.6-1.3); GLUCOSE 187 mg/dL (74-106); POTASSIUM - SERUM 3.9 mmol/L (3.5-5.1); PROTEIN - SERUM 6.4 g/dL (6.4-8.2); SODIUM 136 mmol/L (136-145); UREA NITROGEN 15 mg/dL (7-18); eGFR NON AFRICAN AMERICAN > 90 mL/min (90-120)
--- NOTE | 2017-06-28 07:45 | NUR ---
PATIENT IS RESTING IN THE BED. PATIENT IS AWAKE, ALERT, AND ORIENTED X4. DENIES ANY PAIN AT PRESENT TIME. OXYGEN AT 5L PER NC. PATIENT DENIES ANY SOB AT PRESENT TIME. PATIENT DENIES ANY NEEDS AT PRESENT TIME. CALL LIGHT IN PATIENT'S REACH. CONTACT ISOLATION PRECAUTIONS IN PLACE. WILL MONITOR PATIENT.
[2017-06-28 08:21] VITALS: BP 151/75
--- NOTE | 2017-06-28 13:35 | NUR ---
PATIENT SITTING UP IN A CHAIR. PATIENT TALKING ON HER CELL PHONE. CALL LIGHT IN PATIENT'S REACH. PATIENT DENIES ANY NEEDS AT PRESENT TIME. WILL MONITOR PATIENT.
[2017-06-28 16:02] VITALS: BP 174/79
--- NOTE | 2017-06-28 17:08 | NUR ---
Rehab Note- Acute Rehab Prescreen order received. Will visit with the patient in the morning. She was recently in our acute rehab unit. Will follow at this time. Thank you for this referral! Anusha Jean RN Clinical Liaison, [facility] Rehab
--- NOTE | 2017-06-28 17:31 | NUR ---
PATIENT SITTING UP IN HER CHAIR. FSBS 216. 4 UNITS OF SCHEDULED HUMALOG GIVEN SUBQUE IN PATIENT'S LEFT ARM. PATIENT ENIES NEEDS. CALL LIGHT IN PATIENT'S REACH. WILL MONITOR.
[2017-06-28 20:00] VITALS: BP 118/75; BP 156/73
--- NOTE | 2017-06-28 20:50 | NUR ---
PATIENT RESTING IN BED WITH NO VISIBLE SIGNS OF DISTRESS. ADMINISTERED MEDS PER ORDERS AND COMPLETED ASSESSMENT. RT IAN ADMINISTERED BREATHING TREATMENT AND INFORMED THE PATIENT THAT SHE CONNECTED HER CPAP TO O2 AND SHE COULD PUT IT ON ANYTIME SHE WAS READY. PATIENT VERBALIZED UNDERSTANDING. PATIENT DENIES OTHER NEEDS AT THIS TIME. BED IN LOWEST POSITION, CALL LIGHT WITHIN REACH, AND BED ALARM ON. ENCOURAGED THE PATIENT TO CALL IF SHE HAS NEEDS.
[2017-06-29] VITALS: BP 176/92
--- NOTE | 2017-06-29 00:30 | NUR ---
RECEIVED CARE OF PATIENT.
[2017-06-29 04:00] VITALS: BP 120/66
[2017-06-29 05:52] LABS: BASOPHILS 0.2 % (0-2); EOSINOPHILS 0.7 % (0-7); HEMATOCRIT 43.6 % (36.0-48.0); IMMATURE GRANULOCYTES 1.9 % (0-5); LYMPHOCYTES 16.9 % (15-50); MCH 26.9 pg (26.0-34.0); MCHC 32.1 g/dL (31.0-37.0); MCV 83.7 fL (80.0-100.0); MEAN PLATELET VOLUME 9.1 fL (7.4-10.4); MONOCYTES 6.4 % (2-11); NEUTROPHILS 73.9 % (40-80); PLATELET COUNT 302 10x3/uL (130-400); RBC 5.21 10x6/uL (4.00-5.40); RDW 15.4 % (11.5-14.5)
[2017-06-29 05:53] LABS: WBC 17.1 10x3/uL (4.8-10.8)
[2017-06-29 06:03] LABS: ALBUMIN 2.7 g/dL (3.4-5.0); ALKALINE PHOSPHATASE 94 U/L (46-116); ALT (SGPT) 27 U/L (10-68); BILIRUBIN - TOTAL 0.39 mg/dL (0.2-1.3); CALC OSMOLALITY 268 mosm/kg (275-300); CALCIUM 8.4 mg/dL (8.5-10.1); CHLORIDE - SERUM 96 mmol/L (98-107); CREATININE - SERUM 0.6 mg/dL (0.6-1.3); GLUCOSE 106 mg/dL (74-106); POTASSIUM - SERUM 3.8 mmol/L (3.5-5.1); PROTEIN - SERUM 6.2 g/dL (6.4-8.2); SODIUM 134 mmol/L (136-145); UREA NITROGEN 15 mg/dL (7-18); eGFR NON AFRICAN AMERICAN > 90 mL/min (90-120)
--- NOTE | 2017-06-29 07:45 | NUR ---
PT AOX4 RESP EVEN AND NONLABORED PT DENIES NEEDS AT THIS TIME IV TO RIGHT UPPER ARM PATENT AND INTACT AT THIS TIME SRX2 BED AT LOWEST SETTING AT THIS TIME SRX2 BED AT LOWEST SETTING CALL LIGHT WITHIN REACH WILL CONTINUE TO MONITOR
[2017-06-29 08:32] VITALS: BP 179/81
--- NOTE | 2017-06-29 10:34 | NUR ---
This patient meets criteria for the IRF, and according to her grandaughter she is interested in coming to inpatient rehab prior to going home. Rehab will follow and accept when the physician feels she is medically stable for discharge to rehab. Discussed with the CM Lorrie Geller RN. Daya Fermin RN Clinical Liaison, Rehab
--- NOTE | 2017-06-29 13:45 | NUR ---
CM REASSESSMENT NOTE: PATIENT GOING TO IP REHAB. IMM SERVED
[2017-06-29] MEDS ORDERED: ALBUTEROL2.5 MG/3 M UPD ×2 (14:18)
[2017-06-29] MEDS ORDERED: LOVENOX40 MG/0.4 SC (14:18)
[2017-06-29] MEDS ORDERED: BENZONATATE200 MG PO (14:19)
[2017-06-29] MEDS ORDERED: MAG-OX 400 MG400 MG PO (14:19)
[2017-06-29] MEDS ORDERED: MUCINEX DM ER1 EAC1 PO (14:19)
[2017-06-29] MEDS ORDERED: PULMICORT0.5 MG/21 UPD (14:19)
[2017-06-29] MEDS ORDERED: SOLU-MEDRO40 MG/1 M1 IV (14:20)
[2017-06-29] MEDS ORDERED: VANCOMYCIN 1 GM/1 G1 IV (14:21)
[2017-06-29] MEDS ORDERED: MAXIPIME 1 GM/D51 G1 IV (14:21)
[2017-06-29 16:04] VITALS: BP 179/84
--- NOTE | 2017-06-29 16:35 | NUR ---
IV DISCONTINUED IN RIGHT FOREARM WITH CATHETER INTACT AT THIS TIME PT GIVEN DISCHARGE INSTRUCTIONS AT THIS TIME
--- NOTE | 2017-06-29 16:47 | NUR ---
PT TAKEN VIA WHEELCHAIR TO INPATIENT REHAB AT THIS TIME
== END 2017-06-29 17:42 | DRG 871 ==
LOC: D.ER 15:49 → D.MS 16:38 → D.SDCHOLD 16:38 → D.MS 18:37
PROVIDERS: Emergency Medicine; Internal Medicine Pulmonary Disease; ADMIT Family Medicine Adult Medicine
DX: A41.9 Sepsis, unspecified organism (principal); J18.9 Pneumonia, unspecified organism; J96.21 Acute and chronic respiratory failure with hypoxia; J93.9 Pneumothorax, unspecified; E87.1 Hypo-osmolality and hyponatremia; Z99.81 Dependence on supplemental oxygen; J84.10 Pulmonary fibrosis, unspecified; I27.2 Other secondary pulmonary hypertension; R91.1 Solitary pulmonary nodule; I07.1 Rheumatic tricuspid insufficiency; H35.30 Unspecified macular degeneration; G47.33 Obstructive sleep apnea (adult) (pediatric); I10 Essential (primary) hypertension; Z87.891 Personal history of nicotine dependence; B95.62 Methicillin resistant Staphylococcus aureus infection as the cause of diseases classified elsewhere

== ENCOUNTER 2017-06-29 16:52 | Inpatient (IN) | payer MEDICARE, BC ==
[~2017-06-29 16:52] MED LIST changes: +ALBUTEROL2.5 MG/3 M UPD; +BENZONATATE200 MG PO; +MAG-OX 400 MG400 MG PO; +MAXIPIME 1 GM/D51 G1 IV; +PULMICORT0.5 MG/21 UPD; +SOLU-MEDRO40 MG/1 M1 IV; +VANCOMYCIN 1 GM/1 G1 IV
[2017-06-29 19:08] VITALS: BP 164/92; BMI 27.5
--- NOTE | 2017-06-29 20:03 | NUR ---
PT IN BED WITH HOB UP FOR COMFORT. NO VOICED NEEDS AND SHE HAS HER CALL LIGHT WITHIN REACH.
--- NOTE | 2017-06-29 20:10 | NUR ---
REST IN BED AND WATCH TV.
[2017-06-30 00:24] VITALS: BP 128/77
--- NOTE | 2017-06-30 04:41 | NUR ---
REST QUIETLY IN BED, EYE CLOSE, CALL LIGHT IN REACH.
--- NOTE | 2017-06-30 07:20 | NUR ---
ASSISTED FROM RESTROOM TO BED WITH STANDBY ASSIST. ALERT AND ORIENTED X4. EDUCATED ON THE USE OF FLUTTER AND HAD PT DEMOSTRATE PROPER USAGE. DENIES ANY NEEDS OR PAIN. CALL LIGHT WITHIN REACH. BED LOW. WILL CONTINUE TO MONITOR
--- NOTE | 2017-06-30 07:20 | NUR ---
ASSISTED UP OOB WITH WALKER ;AMBULATED TO BATHROOM.INSTRUCTED TO PULL CORD WHEN FINISHED.
[2017-06-30 08:00] VITALS: BP 144/83
--- NOTE | 2017-06-30 15:25 | NUR ---
SITTING UP IN WHEELCHAIR WATCHING TV. OFFERS NO COMPLAINTS. CALL LIGHT WITHIN REACH. WILL CONTINUE TO MONITOR
--- NOTE | 2017-06-30 18:02 | NUR ---
SITTING UP IN CHAIR EATING DINNER. FAMILY IN ROOM. NO S/SX OF DISTRESS. CONTINUE ON 5L OF VIA WI. CALL LIGHT WITHIN REACH. WILL CONTINUE TO MONITOR
--- NOTE | 2017-06-30 19:15 | NUR ---
RECIEVED UP IN BED WITH O2@ 5 LITERS PER N/C. DENIES ANY PAIN AT THIS TIME. VANCOMYCIN HUNG AND RUNNING PER ORDERS. CALL LIGHT AND OVERBED TABLE IN REACH.
--- NOTE | 2017-06-30 21:00 | NUR ---
RESTING IN BED WITH EYES CLOSED. NO S/S OF DISTRESS OBSERVED. CPAP IN PLACE AND FUNCTIONING . PT HAS HER OWN CPAP MACHINE. CALL LIGHT AND OVERBED TABLE IN REACH.
[2017-06-30 23:53] VITALS: BP 165/77
--- NOTE | 2017-07-01 00:43 | NUR ---
RESTING IN BED WITH EYES OPEN AT THIS TIME. STATES O2 KEEPS COMMING OFF OF CPAP. EXTENTION ADDED TO CPAP. CALL LIGHT AND OVERBED TABLE IN REACH.
--- NOTE | 2017-07-01 06:48 | NUR ---
RESTING IN BED WITH EYES CLOSED. NO S/S OF DISTRESS OBSERVED. IV PATENT AND INFUSING VANCOMYCIN AT THIS TIME. O2@5 LITERS PER N/C. CALL LIGHT AND OVERBED TABLE IN REACH.
--- NOTE | 2017-07-01 07:25 | NUR ---
LYING IN BED RESTING COMFORTABLY. APPROPRIATE RISE AND FALL OF CHEST. CONTINUES ON 5L OF O2 VIA NC. NO S/SX OF RESPIRATORY DISTRESS. CALL LIGHT WITHIN REACH, BED LOW AND ALARM ON . WILL CONTINUE TO MONITOR
[2017-07-01 08:00] VITALS: BP 155/75
--- NOTE | 2017-07-01 11:13 | NUR ---
SITTING UP IN BED VISITING WITH FAMILY. OFFERS NO COMPLAINTS. CALL LIGHT WITHIN REACH. WILL CONTINUE TO MONITOR
--- NOTE | 2017-07-01 15:19 | NUR ---
LYING IN BED EYES CLOSED RESTING. APPROPRIATE RISE AND FALL OF CHEST. NO S/SX OF DISTRESS. CALL LIGHT WITHIN REACH. BED LOW AND ALARM ON. WILL CONTINUE TO MONITOR
--- NOTE | 2017-07-01 16:00 | NUR ---
RESTING QUIETLY.CL IN REACH.
[2017-07-01 19:23] VITALS: BP 177/82
--- NOTE | 2017-07-01 19:51 | NUR ---
SITTING UP ON SIDE OF HER BED. BLOW DRYING HAIR EARLIER. UP IN BED WITH HOB ELEVATED TO 30 DEGREES. STATES PAIN MUCH BETTER AND SHE HAD A PAIN PILL EARLIER. CALL LIGHT AND OVERBED TABLE IN REACH.
--- NOTE | 2017-07-01 21:29 | NUR ---
RESTING IN BED WITH EYES CLOSED AND CPAP IN PLACE. RESP EVEN AND UNLABORED. NO S/S OF DISTRESS OBSERVED. EASILY AROUSES WITH VERBAL STIMULI. CALL LIGHT AND OVERBED TABLE IN REACH.
--- NOTE | 2017-07-02 02:40 | NUR ---
RESTING IN BED WITH EYES CLOSED. NO S/S OF DISTRESS OBSERVED. CPAP IN PLACE AND FUNCTIONING. MIDLINE TO LEFT UPPER ARM PATENT AND DRESSING CLEAN, DRY AND INTACT. NO REDNESS, SWELLING OR DRAINAGE OBSERVED. CALL LIGHT AND OVERBED TABLE IN REACH.
[2017-07-02 05:32] LABS: BASOPHILS 0.1 % (0-2); EOSINOPHILS 0 % (0-7); HEMATOCRIT 40.8 % (36.0-48.0); HEMOGLOBIN 13.2 g/dL (12-16); IMMATURE GRANULOCYTES 2.7 % (0-5); LYMPHOCYTES 6.4 % (15-50); MCHC 32.4 g/dL (31.0-37.0); MCV 83.4 fL (80.0-100.0); MEAN PLATELET VOLUME 9.3 fL (7.4-10.4); MONOCYTES 3.6 % (2-11); NEUTROPHILS 87.2 % (40-80); PLATELET COUNT 292 10x3/uL (130-400); RBC 4.89 10x6/uL (4.00-5.40); RDW 15.4 % (11.5-14.5)
[2017-07-02 05:49] LABS: CALC OSMOLALITY 269 mosm/kg (275-300); CALCIUM 8.7 mg/dL (8.5-10.1); CHLORIDE - SERUM 95 mmol/L (98-107); CREATININE - SERUM 0.6 mg/dL (0.6-1.3); POTASSIUM - SERUM 4.4 mmol/L (3.5-5.1); SODIUM 132 mmol/L (136-145); UREA NITROGEN 14 mg/dL (7-18); eGFR NON AFRICAN AMERICAN > 90 mL/min (90-120)
[2017-07-02 05:54] LABS: GLUCOSE 178 mg/dL (74-106)
--- NOTE | 2017-07-02 10:15 | NUR ---
PT AM MEDS ADMINISTERED. PT EATING BREAKFAST AND DENIES NEEDS AT THIS TIME.
--- NOTE | 2017-07-02 13:00 | NUR ---
PT SITTING UP IN WC, DENIES NEEDS. WCTM.
--- NOTE | 2017-07-02 18:37 | NUR ---
PT RESTING IN ROOM, DENIES NEEDS. WCTM.
--- NOTE | 2017-07-02 19:36 | NUR ---
UP IB BED WITH EYES OPEN. EXCITED ABOUT HER NEW TRILOGY MACHINE. PACKING UP HER CPAP IN ITS CASE. PLACED CPAP IN TOP OF CLOSET. DENIES ANY PAIN AT THIS TIME. CALL LIGHT AND OVERBED TABLE IN REACH.
[2017-07-02 20:48] VITALS: BP 188/85
--- NOTE | 2017-07-02 21:29 | NUR ---
SITTING UP IN BED LOOKING AT HER NEW BREATHING MACHINE. APPEARS TO BE VERY EXCITED. DOES NOT APPEAR DROWSEY AT ALL. CALL LIGHT AND OVERBED TABLE IN REACH.
--- NOTE | 2017-07-03 03:10 | NUR ---
RESTING IN BED WITH EYES CLOSED. NO S/S OF DISTRESS OBSERVED. TRILOGY TAKEN OFF AND CPAP PUT ON D/T TRILOGY ALARM KEPT GOING OFF. RESP. LOOKED AT IT AND UNABLE TO FIX. CALL LIGHT AND OVERBED TABLE IN REACH.
--- NOTE | 2017-07-03 06:25 | NUR ---
RESTING IN BED WITH EYES CLOSED. CPAP IN PLACE. HOB ELEVATED AND CALL LITE IN REACH. ALARM IN PLACE AND FUNCTIONING PROPERLY.
[2017-07-03 07:55] VITALS: BP 189/78
--- NOTE | 2017-07-03 08:01 | NUR ---
PT RESTING IN BED WITH EYES OPEN CALL LIGHT IN REACH WILL MONITER
--- NOTE | 2017-07-03 08:15 | NUR ---
EATING BREAKFAST. CALL LIGHT IN REACH
--- NOTE | 2017-07-03 16:48 | NUR ---
PATIENT ADMITTED TO REHAB FROM ACUTE FLOOR. DR. MCNEAL IS HER PCP AND SHE IS A CLIENT OF [employer]. DME AT HOME: WALKER, O2, NEBULIZER, CANE AND C-PAP. WILL CONTINUE TO FOLLOW WITH PATIENT AND ASSIT WITH DISCHARGE NEEDS
--- NOTE | 2017-07-03 16:57 | NUR ---
PT RESTING IN BED WITH EYES OPEN CALL LIGHT IN REACH NO PROBLEMS WILL MONITER
[2017-07-03 19:15] VITALS: BP 155/77
--- NOTE | 2017-07-03 19:15 | NUR ---
ASSESSMENT PER FLOW SHEET, VS OBTAINED, PICC LINE IN LEFT ARM INTACT INFUSING THE VANCOMYCIN PER MD ORDERS, NO REDNESS OR EDEMA AT SITE, PT BACK TO BED AT THIS TIME, PT REQUESTED AND SERVED A SMALL CUP OF COFFEE, PT DENIES FURTHER NEEDS
--- NOTE | 2017-07-03 20:15 | NUR ---
PT SITTING UP ON SIDE OF BED TALKING TO SON, PT DENIES NEEDS AT THIS TIME
--- NOTE | 2017-07-03 21:32 | NUR ---
PT RESTING WITH EYES CLOSED, AROUSES TO SOFT VERBAL STIMULATION, IV CONVERTED TO SALINE LOCK, FLUSHED WITH 10 MLS OF NS WITH NO DIFFICULTY, ADM 2100 MEDS PER MD ORDERS WITH FRESH H20, PT HAVING TROUBLE WEARING CPAP, INFORMED PT THAT I WILL HAVE RESP COME DOWN TO LOOK AT IT, PT VERBALIZES UNDERSTANDING, O2 PLACED BACK ON VIA NC
--- NOTE | 2017-07-03 22:34 | NUR ---
PT RESTING WITH EYES CLOSED, RESP QUIET, NO DISTRESS NOTED, LEFT UNDISTURBED AT THIS TIME
--- NOTE | 2017-07-03 23:28 | NUR ---
PT UP TO BR VIA WC WITH ASSISTANCE, PT TO COMMODE, VOIDED BY SELF WITH NO DIFFICULTY, PT BACK TO BED, PT INQUIRES ABOUT CPAP MACHINE, INFORMED PT THAT RESP CAME DOWN A LITTLE WHILE AGO TO ASSIST HER BUT SHE WAS ASLEEP AND THAT RESP WILL BE BACK SHORTLY TO APPLY IT, PT VERBALIZES UNDERSTANDING, DENIES FURTHER NEEDS
--- NOTE | 2017-07-04 00:22 | NUR ---
PT RESTING WITH EYES CLOSED, RESP QUIET, NO DISTRESS NOTED, LEFT UNDISTURBED AT THIS TIME
--- NOTE | 2017-07-04 02:21 | NUR ---
PT RESTING WITH EYES CLOSED, RESP QUIET, NO DISTRESS NOTED, LEFT UNDISTURBED AT THIS TIME
--- NOTE | 2017-07-04 04:09 | NUR ---
PT RESTING WITH EYES CLOSED, RESP QUIET, NO DISTRESS NOTED, LEFT UNDISTURBED AT THIS TIME
--- NOTE | 2017-07-04 06:04 | NUR ---
PT AWAKE, PT TO BR VIA WC WITH ASSISTANCE, PT VOIDED WITH NO DIFFICULTY, PT REQUESTS TO JUST SIT IN WC AT THIS TIME, PT REFUSES BATH THIS MORNING, VANCOMYCIN FINISHED INFUSING, ADM 0600 MEDS PER MD ORDERS, SEE EMAR, IV CONVERTED TO SALINE LOCK AFTER INFUSING OF SOLUMEDROL, PT DENIES NEEDS OR PAIN AT THIS TIME, RESP TO ROOM FOR TREATMENT
[2017-07-04 06:37] LABS: BASOPHILS 0.1 % (0-2); EOSINOPHILS 0 % (0-7); HEMATOCRIT 43.2 % (36.0-48.0); HEMOGLOBIN 14.1 g/dL (12-16); IMMATURE GRANULOCYTES 2.7 % (0-5); LYMPHOCYTES 9.8 % (15-50); MCHC 32.6 g/dL (31.0-37.0); MCV 82.6 fL (80.0-100.0); MEAN PLATELET VOLUME 9.4 fL (7.4-10.4); MONOCYTES 4.7 % (2-11); NEUTROPHILS 82.7 % (40-80); PLATELET COUNT 275 10x3/uL (130-400); RBC 5.23 10x6/uL (4.00-5.40); WBC 20.2 10x3/uL (4.8-10.8)
--- NOTE | 2017-07-04 06:57 | NUR ---
SHIFT REPORT TO DAY SHIFT
[2017-07-04 06:58] LABS: CALC OSMOLALITY 259 mosm/kg (275-300); CALCIUM 8.2 mg/dL (8.5-10.1); CARBON DIOXIDE 32.8 mmol/L (21.0-32.0); CHLORIDE - SERUM 91 mmol/L (98-107); CREATININE - SERUM 0.5 mg/dL (0.6-1.3); POTASSIUM - SERUM 4.2 mmol/L (3.5-5.1); SODIUM 129 mmol/L (136-145); UREA NITROGEN 13 mg/dL (7-18); eGFR NON AFRICAN AMERICAN > 90 mL/min (90-120)
[2017-07-04 07:02] LABS: GLUCOSE 124 mg/dL (74-106)
--- NOTE | 2017-07-04 08:00 | NUR ---
BREAKFAST GIVEN.CL IN REACH.
[2017-07-04 08:10] VITALS: BP 161/82
--- NOTE | 2017-07-04 12:00 | NUR ---
PT UP IN WHEELCHAIR EATING LUNCH CALL LIGHT IN REACH TOLERATING WELL WILL MONITER
--- NOTE | 2017-07-04 13:11 | NUR ---
RD follow up Pt seen today, dicussed in meeting in noon meeting as well. pt c/o memory is bad. Consume 83% average A38hstxs, consuming 75-100% most of the meals. Kody 19 skin ecchymotic naye arms, wt stable, BM 06/23 per med tech. Meds reviered, on vancomycin, florgen and MIV. No changes at this time. Plan: continue plan of care, RD to follow
--- NOTE | 2017-07-04 14:18 | NUR ---
CARE TEAM MEETING: TENATIVE DISCHARGE DATE IS 07/10/17. WILL CONTINUE TO FOLLOW WITH PATIENT AND WILL ASSIST WITH DISCHRGE NEEDS.
--- NOTE | 2017-07-04 18:03 | NUR ---
PT RESTING IN BED WITH EYES OPEN CALL LIGHT IN REACH WILL MONITER
--- NOTE | 2017-07-04 19:50 | NUR ---
PT. IN BED WITH HOB UP FOR COMFORT AND IS WATCHING TV. IV INFUSION COMPLETED AND PT'S MIDLINE WAS FLUSHED AND PT. DISCONNECTED FROM IV TUBING. ASSISTED PT. TO BR TO URINATE. BACK TO BED AND POSITIONED TO COMFORT. ASSESSMENT COMPLETED. NO VOICED NEEDS AT THIS TIME. O2 @ 3L/MIN VIA N/C IN PLACE AND NO S/S DISTRESS OBSERVED. CALL LIGHT WITHIN REACH.
[2017-07-04 20:15] VITALS: BP 182/78
--- NOTE | 2017-07-04 23:25 | NUR ---
HAVE HAD TO GO INTO ROOM AND WAKE PT. UP HER TRILOGY EQUIPMENT IS ALARMING. PT. RESETS EQUIPMENT AND ALARM GOES OFF. PT. HAS HER NASAL UNIT IN PLACE AND NOT THE MASK, LIKE SHE USED LAST NIGHT AND SHE DIDN'T LIKE IT. PT. POSITIONED HERSELF BACK TO COMFORT AND CLOSED HER EYES. CALL LIGHT WITHIN REACH.
--- NOTE | 2017-07-05 03:20 | NUR ---
PT. IN BED WITH HOB UP FOR COMFORT AND WEARING HER NASAL C-PAP EQUIPMENT. EYES CLOSED AND RESP. EVEN. CALL LIGHT WITHIN REACH.
--- NOTE | 2017-07-05 07:55 | NUR ---
PT SITTING UP IN WC EATING BREAKFAST, DENIES NEEDS. WCTM.
--- NOTE | 2017-07-05 09:48 | NUR ---
PT AM MEDICATIONS ADMINISTERED. PT DENIES NEEDS. WCTM.
[2017-07-05 10:01] VITALS: BP 178/91
--- NOTE | 2017-07-05 17:51 | NUR ---
PT EATING DINNER, DENIES NEEDS. WCTM.
--- NOTE | 2017-07-05 19:40 | NUR ---
PT. IN BED WITH HOB UP FOR COMFORT AND IS WATCHING TV. ASSESSMENT COMPLETED. NO VOICED NEEDS AT THIS TIME. CALL LIGHT IS WITHIN REACH.
[2017-07-05 20:00] VITALS: BP 153/77
--- NOTE | 2017-07-05 23:15 | NUR ---
PT. IN BED WITH HOB SLIGHTLY ELEVATED AND HAS HER NASAL TRILIGY IN PLACE. EYES CLOSED AND RESP. EVEN. CALL LIGHT WITHIN REACH.
--- NOTE | 2017-07-06 03:01 | NUR ---
PT. IN BED WITH HOB AND FOB ELEVATED FOR COMFORT. PT. WEARING HER NASAL TRILIGY EQUIPMENT WITHOUT ALARMS. EYES CLOSED AND RESP. EVEN. CALL LIGHT WITHIN REACH.
[2017-07-06 04:23] LABS: BASOPHILS 0.1 % (0-2); EOSINOPHILS 0 % (0-7); HEMATOCRIT 39.4 % (36.0-48.0); HEMOGLOBIN 13.2 g/dL (12-16); IMMATURE GRANULOCYTES 1.9 % (0-5); LYMPHOCYTES 5.5 % (15-50); MCH 27.5 pg (26.0-34.0); MCHC 33.5 g/dL (31.0-37.0); MCV 82.1 fL (80.0-100.0); MEAN PLATELET VOLUME 9.2 fL (7.4-10.4); MONOCYTES 3.8 % (2-11); NEUTROPHILS 88.7 % (40-80); PLATELET COUNT 210 10x3/uL (130-400); RDW 14.9 % (11.5-14.5); WBC 20.1 10x3/uL (4.8-10.8)
[2017-07-06 04:34] LABS: CALC OSMOLALITY 262 mosm/kg (275-300); CALCIUM 8.3 mg/dL (8.5-10.1); CARBON DIOXIDE 32.8 mmol/L (21.0-32.0); CHLORIDE - SERUM 94 mmol/L (98-107); CREATININE - SERUM 0.6 mg/dL (0.6-1.3); GLUCOSE 166 mg/dL (74-106); POTASSIUM - SERUM 4.5 mmol/L (3.5-5.1); SODIUM 129 mmol/L (136-145); UREA NITROGEN 13 mg/dL (7-18); eGFR NON AFRICAN AMERICAN > 90 mL/min (90-120)
[2017-07-06 08:43] VITALS: BP 187/80
--- NOTE | 2017-07-06 09:45 | NUR ---
PT AM MEDS ADMINISTERD. PT DENIES NEEDS AT THIS TIME. WCTM.
--- NOTE | 2017-07-06 11:28 | NUR ---
Vancomycin trough was 11.0 9-[address] Hare wantisi goal trough around 15. Increased Vancomycin dose to 1.25 gm IV q12h and ordered trough 10-1 at 1630.
--- NOTE | 2017-07-06 13:56 | NUR ---
PT SITTING UP IN WC, DENIES NEEDS. WCTM.
--- NOTE | 2017-07-06 17:04 | NUR ---
PT RESTING, EYES CLOSED. BED LOW. CL IN REACH.
[2017-07-06 19:00] VITALS: BP 161/84
--- NOTE | 2017-07-06 19:15 | NUR ---
PT IN BED WITH HOB UP FOR COMFORT. WATCHING TV. ALERT & ORIENTED. CONTACT ISOLATION FOR MRSA IN THE BLOOD. STANDY BY, WC. [place]. HEARING AIDS. O2 @ 3L VIA NC. TRILOGY MACHINE AT NIGHT. LEFT UPPER ARM MIDLINE, FLUSHES EASILY. ADAIR ALARM ON. BED IN LOWEST POSITION AND CALL LIGHT WITHIN REACH.
--- NOTE | 2017-07-06 23:10 | NUR ---
PT IN BED WITH HOB UP FOR COMOFRT. EYES CLOSED. CHEST RISING AND FALLING. BED IN LOWEST POSITION AND CALL LIGHT WITHIN REACH.
--- NOTE | 2017-07-07 05:22 | NUR ---
PT LYING IN BED. EYES CLOSED. CHEST RISING AND FALLING. BED ALARM ON. BED IN LOWEST POSITION AND CALL LIGHT WITHIN REACH.
--- NOTE | 2017-07-07 05:27 | NUR ---
RESTING IN BED WITH EYES CLOSED. NO S/S OF DISTRESS OBSERVED. MIDLINE TO LEFT UPPERARM WITH DRESSING INTACT. CPAP IN PLACE. RESP. EVEN AND UNLABORED. CALL LIGHT AND OVERBED TABLE IN REACH.
[2017-07-07 09:00] VITALS: BP 162/73
--- NOTE | 2017-07-07 10:00 | NUR ---
PT AM MEDS ADMINISTERED. PT ROZ NICHOLS. STEPHANIE.
--- NOTE | 2017-07-07 12:35 | NUR ---
PT EATING LUNCH, DENIES NEEDS. WCTM.
--- NOTE | 2017-07-07 18:43 | NUR ---
PT RESTING IN BED, DENIES NEEDS. WCTM.
[2017-07-07 20:00] VITALS: BP 133/50
--- NOTE | 2017-07-07 20:30 | NUR ---
PT IN BED WITH HOB UP FOR COMFORT. RESTING QUIETLY. ALERT & ORIENTED. CONTACT ISOLATION FOR MRSA IN THE BLOOD. STANDY BY, WC. [place]. HEARING AIDS. O2 @ 3L VIA [employer]. TRILOGY MACHINE AT NIGHT. LEFT UPPER ARM MIDLINE, FLUSHES EASILY. ADAIR ALARM ON. BED IN LOWEST POSITION AND CALL LIGHT WITHIN REACH.
--- NOTE | 2017-07-08 01:22 | NUR ---
RESTING IN BED WITH EYES CLOSED. NO S/S OF DISTRESS OBSERVED. CPAP IN PLACE AND FUNCTIONING PROPERLY. HOB ELEVATED TO 30 DEGREES. MIDLINE TO UPPER LEFT ARM PATENT WITH DRESSING INTACT. CALL LIGHT AND OVERBED TABLE IN REACH.
--- NOTE | 2017-07-08 04:17 | NUR ---
PT LYING IN BED. EYES CLOSED. CHEST RISING AND FALLING. BED ALARM ON. BED IN LOWEST POSITION AND CALL LIGHT WITHIN REACH. TRILOGY MACHINE ON.
--- NOTE | 2017-07-08 09:00 | NUR ---
PT AM MEDS ADMINISTERED. PT DENIES NEEDS AT THIS TIME. BED LOW. CLIN REACH.
--- NOTE | 2017-07-08 10:50 | NUR ---
PT ASSISTED INTO WC AND TAKEN TO BR. PT SITTING UP IN WC AT THIS TIME, DENIES FURHTER NEEDS. WCTM.
[2017-07-08 11:55] VITALS: BP 129/78
--- NOTE | 2017-07-08 18:28 | NUR ---
PT RESTING IN BED, DENIES NEEDS. WCTM.
[2017-07-08 20:00] VITALS: BP 162/92
--- NOTE | 2017-07-08 20:00 | NUR ---
PT IN WC. WATCHING TV. ALERT & ORIENTED. CONTACT ISOLATION FOR MRSA IN THE BLOOD. STANDY BY, . [facility]. HEARING AIDS. O2 @ 3L VIA [place]. TRILOGY MACHINE AT NIGHT. LEFT UPPER ARM MIDLINE, FLUSHES EASILY. ADAIR ALARM ON. CALL LIGHT WITHIN REACH.
--- NOTE | 2017-07-09 | NUR ---
PT LYING IN BED WITH HOB UP FOR COMFORT. EYES CLOSED. CHEST RISING AND FALLING. BED IN LOWEST POSITION AND CALL LIGHT WITHIN REACH.
--- NOTE | 2017-07-09 04:00 | NUR ---
PT IN BED WITH HOB UP FOR COMOFRT. EYES CLOSED. CHEST RISING AND FALLING. BED IN LOWEST POSITION AND CALL LIGHT WITHIN REACH.
[2017-07-09 06:08] LABS: BASOPHILS 0.1 % (0-2); EOSINOPHILS 0.1 % (0-7); HEMATOCRIT 41.5 % (36.0-48.0); HEMOGLOBIN 13.8 g/dL (12-16); IMMATURE GRANULOCYTES 1.8 % (0-5); LYMPHOCYTES 9.4 % (15-50); MCH 27.3 pg (26.0-34.0); MCHC 33.3 g/dL (31.0-37.0); MEAN PLATELET VOLUME 9.6 fL (7.4-10.4); NEUTROPHILS 83.6 % (40-80); PLATELET COUNT 171 10x3/uL (130-400); RBC 5.06 10x6/uL (4.00-5.40); WBC 18.5 10x3/uL (4.8-10.8)
--- NOTE | 2017-07-09 06:44 | NUR ---
PT IN BED WITH HOB UP FOR COMFORT. RESTING QUIETLY. BED IN LOWEST POSITION AND CALL LIHT WITHIN REACH.
[2017-07-09 06:53] LABS: CALC OSMOLALITY 253 mosm/kg (275-300); CALCIUM 8.8 mg/dL (8.5-10.1); CARBON DIOXIDE 32.5 mmol/L (21.0-32.0); CHLORIDE - SERUM 89 mmol/L (98-107); CREATININE - SERUM 0.5 mg/dL (0.6-1.3); GLUCOSE 137 mg/dL (74-106); POTASSIUM - SERUM 4.5 mmol/L (3.5-5.1); SODIUM 126 mmol/L (136-145); UREA NITROGEN 10 mg/dL (7-18); eGFR NON AFRICAN AMERICAN > 90 mL/min (90-120)
[2017-07-09 08:13] VITALS: BP 189/70
--- NOTE | 2017-07-09 09:50 | NUR ---
PT AM MEDS ADMINISTERED. PT IN THERAPY AT THIS TIME AND DENIES NEEDS. WCTM.
--- NOTE | 2017-07-09 11:05 | NUR ---
PATIENT DISCHARGING HOME WITH FAMILY ON 07/10/17. [facility] WILL RESUME CARE OF PATIENT AT HOME. NO NEW DME NEEDED AT THIS TIME. DR. MCNEAL 07/13/17 @ 11:30. PATIENT CHOICE FORM FOR HOME HEALTH AND [facility] FORM SIGNED, EXPLAINED AND FILED IN CHART. WILL CONTINUE TO FOLLOW WITH PATIENT UNTIL DISCHARGED
--- NOTE | 2017-07-09 19:25 | NUR ---
PT. IN BED WITH HOB UP FOR COMFORT AND IS WATCHING TV. ASSESSMENT COMPLETED. NO VOICED NEEDS AT THIS TIME. CALL LIGHT WITHIN REACH FOR HER USE. IV VANCO INFUSING VIA PUMP/LUE MIDLINE WITHOUT ANY ALARMS.
[2017-07-09 22:32] VITALS: BP 144/84
--- NOTE | 2017-07-09 23:15 | NUR ---
PT. IN BED WITH HOB UP FOR COMFORT AND IS WEARING HER NASAL TRILOGY EQUIPMENT WITHOUT ALARMS. EYES CLOSED AND RESP. EVEN. CALL LIGHT WITHIN REACH.
--- NOTE | 2017-07-10 03:03 | NUR ---
PT. IN BED WITH HOB/FOB ELEVATED FOR PT'S NEEDS. NASAL TRILOGY EQUIPMENT IN PLACE WITHOUT ALARMS. CALL LIGHT REMAINS WITHIN REACH.
[2017-07-10 05:50] LABS: BASOPHILS 0.1 % (0-2); EOSINOPHILS 0 % (0-7); HEMATOCRIT 41.2 % (36.0-48.0); IMMATURE GRANULOCYTES 1.8 % (0-5); LYMPHOCYTES 5.2 % (15-50); MCH 27.6 pg (26.0-34.0); MCV 81.3 fL (80.0-100.0); MEAN PLATELET VOLUME 9.3 fL (7.4-10.4); MONOCYTES 3.5 % (2-11); NEUTROPHILS 89.4 % (40-80); PLATELET COUNT 188 10x3/uL (130-400); RBC 5.07 10x6/uL (4.00-5.40); WBC 16.8 10x3/uL (4.8-10.8)
[2017-07-10 06:01] LABS: CALC OSMOLALITY 251 mosm/kg (275-300); CALCIUM 8.7 mg/dL (8.5-10.1); CARBON DIOXIDE 32.3 mmol/L (21.0-32.0); CHLORIDE - SERUM 88 mmol/L (98-107); CREATININE - SERUM 0.6 mg/dL (0.6-1.3); GLUCOSE 150 mg/dL (74-106); POTASSIUM - SERUM 4.4 mmol/L (3.5-5.1); SODIUM 124 mmol/L (136-145); UREA NITROGEN 11 mg/dL (7-18); eGFR NON AFRICAN AMERICAN > 90 mL/min (90-120)
--- NOTE | 2017-07-10 08:00 | NUR ---
SITTING ON SIDE OF BED EATING BREAKFAST. OXYGEN IN PLACE. DENIES NEEDS
[2017-07-10] MEDS ORDERED: VASOTEC10 MG PO (09:14)
[2017-07-10] MEDS ORDERED: MEDROL DOSE PACK4 MG PO (09:15)
--- NOTE | 2017-07-10 09:16 | RHP ---
PATIENT: JOHANNY DOWD MEDICAL RECORD: [id number] ACCOUNT: [id number] LOCATION:[id number] : 31 ADMISSION DATE: 06/29/17 REHABILITATION HISTORY AND PHYSICAL EXAMINATION POST ADMISSION PHYSICIAN EXAMINATION Post-Admission Physical Examination and History and Physical DATE OF ADMISSION: 06/29/2017 ADMITTING DIAGNOSIS: Bilateral multilobar pneumonia. HISTORY OF PRESENT ILLNESS: The patient is an 86-year-old female patient admitted to the rehab secondary to bilateral multilobar pneumonia. She was admitted to the hospital on June 23 after coming in with a 2 to 3-week history of progressive shortness of breath. She uses 4-5 liters of oxygen at home, but on admit, she had an O2 sat in the 80s. She denied any wheezing, but had dyspnea with activity. She had been taking nebs at home, which has not been seen to be helping. She sleeps with her head of bed elevated and on 1 pillow. On admit, she was not able to do any daily activities or walk very far. She had increased cough and phlegm production, very thick and unable to expectorate. She had no reflux symptoms. CT of her chest showed no pulmonary embolism or any other problems other than diffuse ground-glass opacity and emphysema with interstitial fibrosis and nodular changes. Her general appearance, she was fatigued, weak and anxious. PAST MEDICAL HISTORY: Significant for macular degeneration, hypertension, obstructive sleep apnea, diverticulosis, anemia and she was admitted with pulmonary and ID consult for blood and sputum cultures, placed on IV vancomycin, IV Maxipime, mucolytic agents and antitussives. She is placed on IV steroids. She has fair balance and was able to ambulate in the room with [id number] assist. She fatigues very quickly and becomes short of breath. She would benefit from daily therapy to improve her endurance, balance and gait. She plans to return home with her son at discharge and get back to her prior level of functioning if possible. COMORBIDITIES: In this patient include MRSA, COPD, obstructive sleep apnea, lobar pneumonia, hypertension, leukocytosis, electrolyte abnormalities, hypertension, anemia, macular degeneration, fatigue, weakness, anxiety and anemia. PAST MEDICAL HISTORY: Significant for cataracts, macular degeneration, pneumonia, diverticulitis and depression. PAST SURGICAL HISTORY: Includes cataract surgery and hysterectomy. She has had a knee scope, lumpectomy and a facelift. ALLERGIES: SULFA, DOXYCYCLINE, CLARITHROMYCIN, NORVASC, DEMEROL, MELOXICAM, VERSED AND AUGMENTIN. CURRENT MEDICATIONS: Include Ventolin updrafts. She is on Protonix 40 mg daily, multivitamin daily, Mag-Ox 400 mg daily. She is on Floranex 460 mg daily, Lovenox 40 mg subQ daily, Cymbalta 60 mg daily, vancomycin 1 g q.12 hours, polyethylene glycol 17 g in 8 ounces of water daily, Neosporin to apply topically b.i.d., Lopressor 25 mg b.i.d., Solu-Medrol 60 mg q.12 hours p.r.n., HISTORY AND PHYSICAL [id number] JOHANNY DOWD Xalatan eye drops daily, Mucinex D daily, Vasotec 20 mg b.i.d., Maxipime 1 g q.8 hours, Pulmicort updrafts b.i.d., Tessalon Perles 200 mg t.i.d. p.r.n. cough and Ventolin as needed. HABITS: No current alcohol or tobacco use. FAMILY HISTORY: Noncontributory. SOCIAL HISTORY: The patient hopes to return back home and get back to her prior level of functioning. REVIEW OF SYSTEMS: GENERAL: Does complain of weakness. HEENT: Does complain of cold, cough, and congestion. CARDIOVASCULAR: Denies any chest pain. LUNGS: Does complain of shortness of breath. PHYSICAL EXAMINATION: VITAL SIGNS: Stable, afebrile. GENERAL: Elderly female in no acute distress, alert upon exam. HEENT: Normocephalic and atraumatic. Mucosa moist. NECK: Supple. No lymphadenopathy. LUNGS: Clear in upper hall. She does have decreased breath sounds in the bases. CARDIOVASCULAR: Regular rate and rhythm. ABDOMEN: Benign. EXTREMITIES: No clubbing, cyanosis or edema. NEUROLOGIC: Intact. LABORATORY DATA: Her white count is 17,000 upon admission, her H&H were 14 and 43 and platelet count is 302. Her admit chemistries showed sodium 134, potassium of 3.8, BUN and creatinine of 15 and 0.6 and blood sugar is noted to be 106. ASSESSMENT: This is an 86-year-old female patient admitted to the rehab with a working diagnosis of bilateral pneumonia with noted physical debility from this. The patient has potential to make improvement. We instituted the following multidisciplinary therapies including, but not limited to physical, occupational, respiratory, speech, nutritional services, prosthetics and orthotics. Given her complex condition and risk for more complications, rehabilitation services cannot be provided at a lower level of care such as a detention facility. PLAN: 1. Admit to [facility] rehab for intensive inpatient therapy to include the following disciplines: A. Physical therapy to improve gait, all transfer skills and bed mobility to a modified independent level. B. Occupational therapy to improve activities of daily living to a modified independent level. C. Case management to assist with discharge planning and placement options. D. Nutrition to assist with nutritional needs. E. Rehabilitation nursing to assist in monitoring the patient's underlying medical conditions and to assist with any type of bowel or bladder management. 2. The patient's current medications and medical care will be continued. HISTORY AND PHYSICAL [id number] JOHANNY DOWD 3. The patient will be placed on standard fall precautions. 4. The patient's estimated length of stay is approximately 7-10 days. 5. We will discuss this patient during care team staff meeting this week. TRANSINT:[id number] Voice Confirmation ID: [id number] DOCUMENT ID: [id number] YOLANDA notes whether there has been none or any medical/functional change since admission: - No change since prescreen. YOLANDA attests patient continues to be appropriate for IRF: - Continues to be appropriate. AGATA ISABEL MD at 0916 CC: [id number] DICTATION DATE: 06/30/17 1221 ALCOHOLISM WORKER: 06/30/17 1305 ADM IN [facility] [address] [place] [address]
[2017-07-10] MEDS ORDERED: VANCOMYCIN 1 GM/1 G1 IV (09:19)
[2017-07-10 09:49] VITALS: BP 98/63
--- NOTE | 2017-07-10 10:30 | NUR ---
HAD INCONT EPISODE OF STOOL IN CLOTHES. STATED SHE TOOK LAXATIVE LAST PM AND IT WORKED "TOO GOOD". ASST PT TO SHOWER AND TO CLEAN UP. SHE USED WALKER FOR AMBULATION ASST. ANDREE PICC NOTED. NO SKIN BREAKDOWN NOTED.
--- NOTE | 2017-07-10 12:01 | NUR ---
D/C HOME WITH ALL PERSONAL BELONGINGS. [facility] D/C BY MICHAEL NICOLE RN. WENT OVER D/C INSTRUCTIONS AND MEDS WITH PT. SHE DENIES QUESTIONS. FRIEND HELPED HER PACK HER ITEMS AND WAS GOING TO TAKE HER TO PHARMACY TO GET MEDS. SHE DENIES QUESTIONS AT DISCHARGE. MEDS CALLED INTO [facility]. SHE HAD OWN OXYGEN TANK IN ROOM AND WAS SWITCHED OVER FROM HOSPITAL OXYGEN TO HER OWN TANK BEFORE D/C.
--- NOTE | 2017-07-19 12:49 | EC ---
PATIENT:JOHANNY DOWD DATE OF SERVICE: 06/29/17 SEX: F MEDICAL RECORD: [id number] DATE OF : 31 LOCATION:[facility] AGE OF PATIENT: 87 ADMISSION DATE: 06/29/17 REFERRING PHYSICIAN: INTERPRETING PHYSICIAN: MIGUEL ALVAREZ MD ECHOCARDIOGRAM REPORT ECHO CHARGES CLINICAL DIAGNOSIS: ECHOCARDIOGRAPHIC MEASUREMENTS (adult normal given) AC root (d.<3.7cm) cm LV Septum d (<1.2 cm> cm Valve Excursion cm LV Septum (systole) cm Left Atria (s.<4.0cm> cm LVPW d(<1.2cm) cm RV (d.<2.3cm) cm LVPW (sytole) cm LV diastole(<5.6CM) cm MV E-F(>70mm/sec) cm LV systole cm LVOT Diameter cm MV exc.(>10mm) cm Est.ejection fraction (50-75%) % Pericardial Effusion DOPPLER: LVIT cm/sec A cm/sec E cm/sec LA cm/sec RVSP mmHg LVOT cm/sec AOP1/2T m/s Asc. Ao cm/sec RVOT cm/sec RA cm/sec PA cm/sec AV Gradient Peak mmHg AV Mean mmHg AV Area cm MV Gradient Peak mmHg MV Mean mmHg MV Area cm COMMENTS: Decontamination Worker: Field Service Analyst: PAULINA DATE OF SERVICE: 06/27/2017 FINDINGS: 1. Left ventricle shows left ventricular hypertrophy with normal function, EF of 60%. 2. The left atrium appears to be grossly normal. 3. The right ventricle is normal size, normal function has right ventricular hypertrophy. 4. The aortic valve is thickened. There are mild sclerotic changes on the aortic valve. There is no evidence of significant stenosis or regurgitation. ECHOCARDIOGRAM REPORT [id number] JOHANNY DOWD 5. The tricuspid valve has mild regurgitation with right ventricular systolic pressures in the 40 mmHg range indicating mild pulmonary hypertension. There is no gross vegetation seen on any of the valvular structures. This is a limited echocardiogram. TRANSINT:[id number] Voice Confirmation ID: [id number] DOCUMENT ID: [id number] 07/13/2017 Edited to correct date of service, dm. MIGUEL ALVAREZ MD at [id number] CC: [id number] DICTATION DATE: 07/04/17 09 EARTH MOVING TECHNICIAN: 07/04/17 1047 DIS IN 07/10/17 [place] [id number] [place] [id number]
== END 2017-07-10 12:10 | disposition home health service (06) | DRG 194 ==
LOC: D.REHAB 16:52
PROVIDERS: Student in an Organized Health Care Education/Training Program; ADMIT Emergency Medicine
DX: J18.9 Pneumonia, unspecified organism (principal); E87.1 Hypo-osmolality and hyponatremia; J96.10 Chronic respiratory failure, unspecified whether with hypoxia or hypercapnia; R53.81 Other malaise; A49.02 Methicillin resistant Staphylococcus aureus infection, unspecified site; J44.9 Chronic obstructive pulmonary disease, unspecified; G47.33 Obstructive sleep apnea (adult) (pediatric); I10 Essential (primary) hypertension; D72.829 Elevated white blood cell count, unspecified; D64.9 Anemia, unspecified; H35.30 Unspecified macular degeneration; R53.83 Other fatigue; R53.1 Weakness; F41.9 Anxiety disorder, unspecified; K57.90 Diverticulosis of intestine, part unspecified, without perforation or abscess without bleeding; Z99.81 Dependence on supplemental oxygen; J84.10 Pulmonary fibrosis, unspecified

== ENCOUNTER 2017-07-14 14:29 | Inpatient (IN) | payer MEDICARE, BC ==
[~2017-07-14 14:29] MED LIST changes: +MEDROL DOSE PACK4 MG PO; +VASOTEC10 MG PO
[2017-07-14 16:03] LABS: HEMATOCRIT 42.3 % (36.0-48.0); HEMOGLOBIN 14.1 g/dL (12-16); LYMPHOCYTES 9.7 % (15-50); MCH 27.2 pg (26.0-34.0); MCHC 33.3 g/dL (31.0-37.0); MCV 81.7 fL (80.0-100.0); MEAN PLATELET VOLUME 8.4 fL (7.4-10.4); NEUTROPHILS 83.3 % (40-80); PLATELET COUNT 211 10x3/uL (130-400); RBC 5.18 10x6/uL (4.00-5.40); RDW 15.5 % (11.5-14.5); WBC 17.5 10x3/uL (4.8-10.8)
[2017-07-14 16:54] LABS: CKMB 1.7 U/L (0.0-3.6); CREATINE KINASE 32 UL (21-215)
[2017-07-14 17:27] LABS: APPEARANCE CLEAR (CLEAR); BILIRUBIN NEGATIVE (NEGATIVE); COLOR DK YELLOW (YELLOW); GLUCOSE NEGATIVE (NEGATIVE); KETONE NEGATIVE (NEGATIVE); NITRITE NEGATIVE (NEGATIVE); PROTEIN NEGATIVE (NEGATIVE); UROBILINOGEN NORMAL (NORMAL)
[2017-07-14 17:33] LABS: BACTERIA MODERATE /hpf (NONE SEEN); EPITHELIAL CELLS 0-5 /hpf (0-5); HYALINE CAST 0-5 /lpf (NONE SEEN); MUCUS >1+ /lpf (NONE SEEN); RED CELLS - URINE 0-5 /hpf (0-5)
[2017-07-14 17:37] LABS: ALBUMIN 3.1 g/dL (3.4-5.0); ALKALINE PHOSPHATASE 80 U/L (46-116); ALT (SGPT) 35 U/L (10-68); BILIRUBIN - TOTAL 0.51 mg/dL (0.2-1.3); CALC OSMOLALITY 251 mosm/kg (275-300); CALCIUM 8.7 mg/dL (8.5-10.1); CARBON DIOXIDE 28.3 mmol/L (21.0-32.0); CHLORIDE - SERUM 87 mmol/L (98-107); CREATININE - SERUM 0.6 mg/dL (0.6-1.3); GLUCOSE 104 mg/dL (74-106); POTASSIUM - SERUM 4.5 mmol/L (3.5-5.1); PROTEIN - SERUM 6.3 g/dL (6.4-8.2); SODIUM 124 mmol/L (136-145); UREA NITROGEN 17 mg/dL (7-18); eGFR NON AFRICAN AMERICAN > 90 mL/min (90-120)
--- NOTE | 2017-07-14 22:27 | NUR ---
PT ARRIVED ON FLOOR VIA STRETCHER. TRANSFERRED TO BED. FAMILY AT SIDE. NO NEEDS AT THIS TIME.
[2017-07-14 23:51] VITALS: BP 133/56
[2017-07-15 02:15] VITALS: BP 155/72; BMI 26.6
[2017-07-15 04:00] VITALS: BP 140/65
[2017-07-15 07:38] LABS: BASOPHILS 0.1 % (0-2); EOSINOPHILS 1.8 % (0-7); HEMOGLOBIN 12.9 g/dL (12-16); IMMATURE GRANULOCYTES 1.3 % (0-5); LYMPHOCYTES 8.9 % (15-50); MCH 27.4 pg (26.0-34.0); MCHC 33.1 g/dL (31.0-37.0); MEAN PLATELET VOLUME 9.3 fL (7.4-10.4); MONOCYTES 3.9 % (2-11); PLATELET COUNT 172 10x3/uL (130-400); RDW 15.2 % (11.5-14.5); WBC 15.2 10x3/uL (4.8-10.8)
[2017-07-15 07:47] LABS: CALC OSMOLALITY 260 mosm/kg (275-300); CALCIUM 7.9 mg/dL (8.5-10.1); CARBON DIOXIDE 28.6 mmol/L (21.0-32.0); CHLORIDE - SERUM 95 mmol/L (98-107); CREATININE - SERUM 0.5 mg/dL (0.6-1.3); GLUCOSE 92 mg/dL (74-106); MAGNESIUM - SERUM 1.6 mg/dL (1.8-2.4); POTASSIUM - SERUM 4.1 mmol/L (3.5-5.1); SODIUM 130 mmol/L (136-145); UREA NITROGEN 12 mg/dL (7-18); eGFR NON AFRICAN AMERICAN > 90 mL/min (90-120)
--- NOTE | 2017-07-15 07:56 | NUR ---
AWAKE AND ALERT. ORIENTED TO SELF ONLY ATTEMPTS PER STAFF TO REORIENT WITHOUT SUCCESS. LUNGS ARE CLEAR BILATERALLY, OCCASSIONAL DRY COUGH NOTED. SKIN IS INTACT WITHOUT REDNESS. IV TO LEFT FOREARM IS PATENT WITHOUT REDNESS AT INSERTION SITE. DENIES NEEDS.
--- NOTE | 2017-07-15 08:02 | NUR ---
SCD'S IN PLACE
[2017-07-15 08:39] VITALS: BP 135/67
[2017-07-15 11:46] VITALS: BP 128/62
--- NOTE | 2017-07-15 12:00 | NUR ---
FAMILY AT BEDSIDE. VERY CONFUSED AT THIS TIME. NEURO CHEKS WNL.
[2017-07-15 16:01] VITALS: BP 139/57
--- NOTE | 2017-07-15 18:49 | NUR ---
ATE ALL OF SUPPER. FAMILY IN ROOM. DENIES NEEDS.
--- NOTE | 2017-07-15 19:00 | NUR ---
REPORT RECEIVED AND CARE OF PT ASSUMED. PT LYING IN SUPINE POSITION, RESTLESS AND HALLUCINATING. SON IS AT BEDSIDE. IV IN LEFT AC PATENT WITH NS INFUSING AT 75 ML / HR. TELEMETRY IN PLACE AND READING 89 SR AT THIS ASSESSMENT. WILL MONITOR CLOSELY FOR NEEDS. BED ALARM IN USE.
[2017-07-15 20:00] VITALS: BP 153/65
--- NOTE | 2017-07-15 20:54 | NUR ---
HS MEDICATIONS GIVEN. PT TOOK PO MEDS WITH A LOT OF ENCOURAGEMENT.
--- NOTE | 2017-07-15 21:10 | NUR ---
SENT REQUEST TO ER PHYSICIAN VIA [employer] SAL[employer] CONSULTANT FOR MED TO CALM PT SHE IS BECOMING MORE AGGITATED, YELLING OUT, AND ATTEMPTING TO CLIMB OVER SIDERAIL. SON AT BEDSIDE REQUESTING FOR "SOMETHING TO BE DONE". RECEIVED ORDER FOR ATIVAN 1 MG IVP X1 DOSE.
--- NOTE | 2017-07-15 21:30 | NUR ---
REMOVED HEARING AIDES AND PLACED IN CONTAINER AT BEDSIDE, WITH GLASSES AND CELLPHONE.
--- NOTE | 2017-07-15 22:00 | NUR ---
PT RESTING QUIETLY IN SUPINE POSITION WITH EYES CLOSED AND UNLABORED BREATHING. NO FAMILY MEMBERS AT BEDSIDE AT THIS TIME. BED ALARM IN USE. SIDE RAILS UP X3 FOR SAFETY.
[2017-07-16] VITALS: BP 186/71
--- NOTE | 2017-07-16 00:45 | NUR ---
PT RESTING QUIETLY IN LOW GERMAN'S POSITION WITH EYES CLOSED AND EASY RESPIRATIONS. SIDE RAILS UP X3 AND BED ALARM ON FOR SAFETY.
[2017-07-16 04:00] VITALS: BP 161/62
[2017-07-16 06:39] LABS: BASOPHILS 0.2 % (0-2); EOSINOPHILS 1.3 % (0-7); HEMATOCRIT 36.5 % (36.0-48.0); HEMOGLOBIN 12.2 g/dL (12-16); IMMATURE GRANULOCYTES 0.9 % (0-5); LYMPHOCYTES 6.3 % (15-50); MCH 27.7 pg (26.0-34.0); MCHC 33.4 g/dL (31.0-37.0); MCV 82.8 fL (80.0-100.0); MEAN PLATELET VOLUME 9.4 fL (7.4-10.4); MONOCYTES 3.4 % (2-11); NEUTROPHILS 87.9 % (40-80); PLATELET COUNT 152 10x3/uL (130-400); RBC 4.41 10x6/uL (4.00-5.40); RDW 15.3 % (11.5-14.5); WBC 14.4 10x3/uL (4.8-10.8)
--- NOTE | 2017-07-16 07:07 | NUR ---
REPORT RECEIVED, ASSUMED CARE OF PT. RESTING WITH NO NEEDS VOICED AT THIS TIME. NO SIGNS OF ACUTE DISTRESS. BED IN LOWEST POSITION, SIDE RAILS UP X 2, CALL LIGHT WITHIN REACH.
[2017-07-16 07:08] LABS: ALBUMIN 2.4 g/dL (3.4-5.0); ALKALINE PHOSPHATASE 71 U/L (46-116); ALT (SGPT) 31 U/L (10-68); BILIRUBIN - TOTAL 0.75 mg/dL (0.2-1.3); CALC OSMOLALITY 256 mosm/kg (275-300); CALCIUM 8.1 mg/dL (8.5-10.1); CARBON DIOXIDE 25.5 mmol/L (21.0-32.0); CHLORIDE - SERUM 94 mmol/L (98-107); CREATININE - SERUM 0.5 mg/dL (0.6-1.3); GLUCOSE 103 mg/dL (74-106); POTASSIUM - SERUM 3.6 mmol/L (3.5-5.1); PROTEIN - SERUM 5.7 g/dL (6.4-8.2); SODIUM 129 mmol/L (136-145); UREA NITROGEN 6 mg/dL (7-18); eGFR NON AFRICAN AMERICAN > 90 mL/min (90-120)
[2017-07-16 08:21] VITALS: BP 136/82
[2017-07-16 11:23] LABS: MAGNESIUM - SERUM 1.6 mg/dL (1.8-2.4)
[2017-07-16 13:11] VITALS: BMI 30.5
--- NOTE | 2017-07-16 16:57 | NUR ---
Patient Name: JOHANNY DOWD Admission Status: ER Accout number: [id number] Admission Date: 07-14-2017 : 1931 Admission Diagnosis: Attending: RICARDO RODRIGUEZ Current LOS: 2 Anticipated DC Date: Planned Disposition: Home with Home Health Primary Insurance: MEDICARE A & B Discharge Planning Comments: CM MET WITH PATIENTS GRANDDAUGHTER (DEYSI) REGARDING D/C NEEDS AND PLANS. PATIENT LIVES AT HOME AND SON LIVES ON PROPERTY. PATIENT WAS INDEPENDENT WITH HER CARE NEEDING ONLY MEDICATION MANAGEMENT. PATIENT HAS NO STEPS OR STAIRS AT HER HOME. PATIENT HAS A TRILOGY, WALKER, CANE, WALK IN TUB, OXYGEN, AND PORTABLE O2 AT HOME. PATIENTS PCP IS DR. MCNEAL AND PHARMACY IS [facility]. PATIENT IS CURRENT WITH HOME HEALTH. PCP DR. FRED[facility]- [phone] [facility]- [phone] DEYSI [phone] Deputy District Customs Director: Lorrie Pugh Is the patient Alert and Oriented? No 0 * How many steps to enter\exit or inside your home? 0 0 * PCP DR. MCNEAL 0 * Pharmacy [facility] 0 * Preadmission Environment Home with Family 0 * ADLs Partial Dependent 0 * Partial ADLs (Assistance needed) Medication Management 0 * Equipment Cane Oxygen Walker 0 * Other Equipment WALK IN TUB, TRILOGY, PORT O2, ([facility] PATIENT) 0 * List name and contact numbers for known caregivers / representatives who currently or will assist patient after discharge: DEYSI (GRANDDAUGHTER) [phone] 0 * Community resources currently utilized Home Health 0 * Please name any agencies selected above. [facility] 0 * Additional services required to return to the preadmission environment? Yes 0 * Can the patient safely return to the preadmission environment? Yes 0 * Has this patient been hospitalized within the prior 30 days at any hospital? Yes 0 Grand Total: 0
[2017-07-16 17:31] VITALS: BP 158/71
--- NOTE | 2017-07-16 17:32 | NUR ---
OT NOTE: PT COMPLETED SIMPLE ADL WITH EMMA Dela Cruz THANK YOU, JEANETTE JEAN/Shaylee
--- NOTE | 2017-07-16 19:00 | NUR ---
REPORT RECEIVED AND CARE OF PT ASSUMED. ASSISTED PT TO USE BEDPAN TO URINATE AND HAVE BM. DAUGHTER IS AT BEDSIDE.
[2017-07-16 20:00] VITALS: BP 148/67
--- NOTE | 2017-07-16 20:25 | NUR ---
HS MEDICATIONS GIVEN. GAVE PILLS ONE AT A TIME WITH SIPS IN BETWEEN. SWALLOWING WELL AT THIS TIME. WILL CONTINUE TO MONITOR FOR NEEDS.
--- NOTE | 2017-07-16 21:20 | NUR ---
CALLED RT TO PLACE CPAP ON PT PER SON REQUEST...SHE ARRIVED WITHIN 2 MINUTES OF CALL.
--- NOTE | 2017-07-16 21:20 | NUR ---
SON ARRIVED ON UNIT....HIS SISTER LEFT IMMEDIATELY. HE IS PACING AND ARGUING WITH ANYONE WALKING BY INCLUDING DR CLAY WANTING HELP FOR HIS MOM. HE ACCUSED ME OF BEING A SMART MOUTH WITH HIM....ASKED CHARGE TO HAVE PT TRANSFERRED TO ANOTHER NURSE. SECURITY CALLED, A VISITOR ACROSS THE RANGEL COMPLAINING ABOUT HIM YELLING AT HIS MOM IN THE ROOM.
[2017-07-17] VITALS: BP 162/80
--- NOTE | 2017-07-17 03:59 | NUR ---
UNABLE TO COLLECT URINE SAMPLE DUE TO INCONTINENCE.
[2017-07-17 04:00] VITALS: BP 153/104
--- NOTE | 2017-07-17 04:58 | NUR ---
PATIENT INCONTINENT OF URINE, ALL BEDDING AND GOWN CHANGED. CALL LIGHT IN REACH.
[2017-07-17 05:40] LABS: BASOPHILS 0.2 % (0-2); EOSINOPHILS 1.1 % (0-7); HEMATOCRIT 36.6 % (36.0-48.0); HEMOGLOBIN 12.6 g/dL (12-16); IMMATURE GRANULOCYTES 0.8 % (0-5); LYMPHOCYTES 4.7 % (15-50); MCH 28.3 pg (26.0-34.0); MCHC 34.4 g/dL (31.0-37.0); MCV 82.2 fL (80.0-100.0); MEAN PLATELET VOLUME 9.2 fL (7.4-10.4); MONOCYTES 3.1 % (2-11); NEUTROPHILS 90.1 % (40-80); PLATELET COUNT 178 10x3/uL (130-400); RBC 4.45 10x6/uL (4.00-5.40); RDW 15.2 % (11.5-14.5); WBC 12.9 10x3/uL (4.8-10.8)
[2017-07-17 05:54] LABS: ALBUMIN 2.6 g/dL (3.4-5.0); ALKALINE PHOSPHATASE 78 U/L (46-116); ALT (SGPT) 31 U/L (10-68); CALC OSMOLALITY 249 mosm/kg (275-300); CALCIUM 8.4 mg/dL (8.5-10.1); CARBON DIOXIDE 26.4 mmol/L (21.0-32.0); CHLORIDE - SERUM 90 mmol/L (98-107); CREATININE - SERUM 0.5 mg/dL (0.6-1.3); GLUCOSE 76 mg/dL (74-106); MAGNESIUM - SERUM 1.9 mg/dL (1.8-2.4); PHOSPHOROUS 2.9 mg/dL (2.5-4.9); POTASSIUM - SERUM 3.4 mmol/L (3.5-5.1); SODIUM 126 mmol/L (136-145); UREA NITROGEN 6 mg/dL (7-18); eGFR NON AFRICAN AMERICAN > 90 mL/min (90-120)
--- NOTE | 2017-07-17 07:00 | NUR ---
PT REC'D FROM MED 2, ORACLE APPLICATION ARCHITECT. PT LEGS HANGING OVER SIDE OF BED. COMPLETE BED BATH AND LINEN CHANGE PROVIDED DUE TO INCONTINENCE OF URINE. REPOSITIONED UP IN BED. AAOX4. NO COMPLAINTS OF PAIN EXCEPT FOR A SORE THROAT. DRINK OF COOL WATER PROVIDED. PT STATES THIS HELPS. REGULAR HEART RATE AND RHYTHM. INSPIRATORY AND EXPIRATORY WHEEZES HEARD BILAT TO UPPER LOBES. BILAT LOWER LOBES DIMINISHED. BOWEL SOUNDS ACTIVE X4 QUADS. ELBOWS REDENED. SCAB TO R HAND. PIV TO L AC FREE OF REDNESS AND SWELLING. BED LOW, CALL LIGHT IN REACH, DENEIS NEEDS. CPOC.
[2017-07-17 08:52] VITALS: BP 168/78
--- NOTE | 2017-07-17 09:10 | NUR ---
MORNING MEDS PASSED AT THIS TIME. TOLERATED WELL TAKING ONE PILL AT A TIME. DAUGHTER AT BEDSIDE. BED LOW, CALL LIGHT IN REACH, DENIES NEEDS. CPOC.
[2017-07-17 10:24] LABS: APPEARANCE CLEAR (CLEAR); COLOR YELLOW (YELLOW)
[2017-07-17 10:25] LABS: SPECIFIC GRAVITY 1.015 (1.005-1.020)
[2017-07-17 10:26] LABS: BACTERIA FEW /hpf (NONE SEEN); BILIRUBIN NEGATIVE (NEGATIVE); EPITHELIAL CELLS 0-5 /hpf (0-5); GLUCOSE NEGATIVE (NEGATIVE); KETONE MODERATE mg/dL (NEGATIVE); MUCUS <1+ /lpf (NONE SEEN); NITRITE NEGATIVE (NEGATIVE); PROTEIN NEGATIVE (NEGATIVE); UROBILINOGEN NORMAL (NORMAL); WHITE CELLS - URINE 0-5 /hpf (0-5)
[2017-07-17 12:06] VITALS: BP 142/65
--- NOTE | 2017-07-17 13:09 | NUR ---
RESTING QUIETLY IN BED. DENIES NEEDS. MENTAL STATUS IS IMPROVED FROM THE WEEKEND.
--- NOTE | 2017-07-17 13:30 | NUR ---
PT RESTING IN BED WITH EYES CLOSED. NO SIGNS OF DISTRESS. BED LOW, CALL LIGHT IN REACH, DENIES NEEDS. CPOC.
--- NOTE | 2017-07-17 14:00 | NUR ---
OT NOTE: PT MUCH MORE ALERT TODAY. PT ABLE TO FEED HERSELF, BUT REPORTED THAT SHE FELT SO WEAK THAT SHE COULD HARDLY EAT. PERFORMED BED MOB WITH MOD ASSIST; SUPINE TO SIT WITH MOD ASSIST. PT MORE ALERT BUT CONTINUES TO REQUIRE EXT ASSIST AT THIS TIME
[2017-07-17 16:23] VITALS: BP 146/53
--- NOTE | 2017-07-17 16:34 | NUR ---
RESPIRATORY THERAPY PAGED DUE TO PT O2 SAT BEING 86% ON 5L VIA NC AND DYSPNEA.
--- NOTE | 2017-07-17 19:00 | NUR ---
REPORT RECEIVED. SHIFT ASSESSMENT COMPLETED PER FLOW SHEET. PT LAYING IN BED. DISORIENTED TO SITUATION AND TIME. SPEECH IS GARBLED. PUPILS 3 MM BRISK REACTION. OBEYS COMMANDS WHEN ASKED TO MOVE UPPER AND LOWER EXTREMITIES. HARD OF HEARING, HEARING AIDS ON. S1S2 PRESENT. RADIAL PULSES PALP. PEDAL PULSES WEAK TO PALPATION. BREATHING SHALLOW, 5 LITERS OF OXYGEN VIA NC. BS HYPOACTIVE X4, PASSING GAS. SKIN WARM AND DRY. BRUISES NOTED TO ARMS BILAT AND ABDOMEN. SCD'S ON. LT AC PIV PATENT. SEE FLOW SHEET FOR COMPLETE ASSESSMENT. CALL LIGHT WITHIN REACH. BED IN LOWEST POSITION. BED ALARM ON. [facility]
[2017-07-17 20:00] VITALS: BP 116/50
--- NOTE | 2017-07-17 20:30 | NUR ---
PT LAYING IN BED, DENIES NEEDS. CALL LIGHT WITHIN REACH. BED IN LOWEST POSITION. WILL CONTINUE TO MONITOR. .
--- NOTE | 2017-07-17 21:25 | NUR ---
PT CONFUSED, SCREAMING, TOOK CPAP OFF, SHORT OF BREATH, RESTLESS, AGITATED, 02 SAT IN THE LOW 60'S, RESPIRATORY IN THE ROOM. ABG'S DRAWN. 10 LITERS OXYGEN GIVEN VIA OXYMIZER. DENIES CHES PAIN. AFTER 10 LITERS OF OXYGEN O2 SAT CAME UP TO 94 % WILL CONTACT PHYSICIAN AND CONTINUE TO MONITOR.
--- NOTE | 2017-07-17 21:35 | NUR ---
PAGED DR. MCNEAL. EDDIE ALARCON TRACK OILER, WILL WAIT FOR CALL BACK.
--- NOTE | 2017-07-17 21:45 | NUR ---
EDDIE ALARCON CALLED BACK, UPDATE GIVEN ON PATIENT STATUS. ORDERS RECEIVED TO CALL DR. VALENCIA. WILL PAGE DR. VALENCIA.
--- NOTE | 2017-07-17 22:10 | NUR ---
PAGED DR. VALENCIA
--- NOTE | 2017-07-17 22:20 | NUR ---
DR. VALENCIA CALLED BACK, NEW ORDERS RECEIVED, SEE EMAR FOR DETAILS.
--- NOTE | 2017-07-17 22:30 | NUR ---
UNBLE TO ADMINISTER HALDOL AT THIS TIME, PHARMACY GONE FOR THE DAY. CALLED ENTRY LEVEL RECEPTIONIST, WILL WAIT FOR MEDICATION TO BECOME AVAILABLE TO ADMINISTER.
--- NOTE | 2017-07-18 00:30 | NUR ---
ASSISSTED PT OFF OF BEDPAN WITH ASSISTANCE BY NURSE TECH. FOUND BEDPAN ON THE FLOOR, SMALL SOFT BOWEL MOVEMENT NOTED. URINE NOTED ON THE FLOOR. BED LINENS WET AND HOSPITAL GOWN WET. PT CLEANED, COMPLETED BED LINENS CHANGED. REPOSITIONED FOR COMFORT. NEW HOSPITAL GOWN PROVIDED. BED ALARM ON. BED IN LOWEST POSITION. PT STILL CONFUSED, TRYING TO GET OUT OF BED, STATING "I AM TRYING TO GO NEXT ROOM, NEXT DOOR." ORIENTED HER AND SHOWED HER THAT THERE IS ONLY A BATHROOM IN THE ROOM. SHE STATED SHE WILL TRY TO GO TO BED. BED ALARM ON. BED IN LOWEST POSITION. WILL CONTINUE TO MONITOR.
--- NOTE | 2017-07-18 01:48 | NUR ---
PT STILL TRYING TO GET OUT OF BED, CONFUSED. CALLED HER DAUGHTER, SHE SAID SHE WILL BE HERE SOON POSSIBLE. WILL CONTINUE TO MONITOR. BED ALARM ON. BED IN LOWEST POSITION.
--- NOTE | 2017-07-18 02:40 | NUR ---
DAUGHTER HERE, UPDATE GIVEN. DAUGHTER NOW IN ROOM WITH PATIENT. WILL CONTINUE TO MONITOR.
[2017-07-18 04:00] VITALS: BP 150/70
--- NOTE | 2017-07-18 04:00 | NUR ---
PT LAYING IN BED, DAUGHTER AT BEDSIDE. DAUGHTER STATES PT HAS CONTINUED TO BE CONFUSED. HAS NOT ATTEMPTED TO GET OUT OF BED. WILL CONTINUE TO MONITOR.
--- NOTE | 2017-07-18 06:00 | NUR ---
PT LAYING IN BED AWAKE, DAUGHTER AT BEDSIDE. RESPIRATORY AT BEDSIDE TO ADMINISTER TREATMENT. MED ADMINISTERED PER EMAR, SEE FOR DETAILS. DENIES NEEDS. CALL LIGHT WITHIN REACH. BED IN LOWEST POSITION. WILL CONTINUE TO MONITOR.
[2017-07-18 06:31] LABS: BASOPHILS 0.1 % (0-2); EOSINOPHILS 1.2 % (0-7); HEMATOCRIT 32.7 % (36.0-48.0); HEMOGLOBIN 11.1 g/dL (12-16); IMMATURE GRANULOCYTES 0.5 % (0-5); LYMPHOCYTES 6.1 % (15-50); MCH 27.5 pg (26.0-34.0); MCHC 33.9 g/dL (31.0-37.0); MCV 81.1 fL (80.0-100.0); MEAN PLATELET VOLUME 8.7 fL (7.4-10.4); MONOCYTES 3.8 % (2-11); NEUTROPHILS 88.3 % (40-80); PLATELET COUNT 178 10x3/uL (130-400); RBC 4.03 10x6/uL (4.00-5.40); RDW 15.2 % (11.5-14.5); WBC 9.7 10x3/uL (4.8-10.8)
[2017-07-18 07:02] LABS: ALBUMIN 2.1 g/dL (3.4-5.0); ALKALINE PHOSPHATASE 78 U/L (46-116); ALT (SGPT) 27 U/L (10-68); CALC OSMOLALITY 250 mosm/kg (275-300); CALCIUM 7.9 mg/dL (8.5-10.1); CARBON DIOXIDE 27.3 mmol/L (21.0-32.0); CHLORIDE - SERUM 91 mmol/L (98-107); CREATININE - SERUM 0.5 mg/dL (0.6-1.3); MAGNESIUM - SERUM 1.7 mg/dL (1.8-2.4); PHOSPHOROUS 2.5 mg/dL (2.5-4.9); POTASSIUM - SERUM 3.5 mmol/L (3.5-5.1); PROTEIN - SERUM 5.6 g/dL (6.4-8.2); SODIUM 125 mmol/L (136-145); UREA NITROGEN 6 mg/dL (7-18); eGFR NON AFRICAN AMERICAN > 90 mL/min (90-120)
[2017-07-18 07:04] LABS: GLUCOSE 115 mg/dL (74-106)
--- NOTE | 2017-07-18 07:40 | NUR ---
ASSESSMENT COMPLETE. SL TO L AC. PAVING SUPERVISOR SHOWING ST 106 PER TECH. O2 13L PER OXIMIZER IN USE. ORIENTED TO SELF AND PLACE. DISORIENTED TO SITUATION AND TIME. FAMILY REPORTS PATIENT HAS BEEN HALLUCINATING THIS MORNING. SHE HAS BEEN SEEING PEOPLE THAT ARE NOT THERE IN THE ROOM.
[2017-07-18 09:18] VITALS: BP 152/71
--- NOTE | 2017-07-18 12:00 | NUR ---
INSTRUCTED FAMILY THAT PATIENT NEEDS TO STAY NPO FOR CT OF CHEST. VOICED UNDERSTANDING. NO CHANGES NOTED AT THIS TIME.
[2017-07-18 12:32] VITALS: BP 152/74
--- NOTE | 2017-07-18 13:12 | NUR ---
OT NOTE: PT VERY CONFUSED TODAY. DTR AT BEDSIDE REPORTING THAT SHE WAS CALLED BACK TO THE HOSPITAL AFTER 1:30am BECAUSE PT WAS TRYING TO GET OUT OF BED AND HALLUCINATING. PT IS CURRENTLY DISORIENTED; DOES NOT REMEMBER IF , OR WHAT SHE HAS HAD TO EAT TODAY. VERY SOB WITH MINIMAL TO NO EXERTION. EFRA LYONS, OTR/L
--- NOTE | 2017-07-18 14:15 | NUR ---
OFF FLOOR TO CT VIA BED.
--- NOTE | 2017-07-18 14:31 | NUR ---
NUTRITION F/U PT RETURNING FROM CT. LUNCH UNTOUCHED. 50% INTAKE BREAKFAST. FREE H2O RESTRICTION NOTED. WILL CONTINUE TO PROVIDE DIET, ENSURE. MONITOR PO INTAKE. RD FOLLOWING
[2017-07-18 17:28] VITALS: BP 144/75
--- NOTE | 2017-07-18 17:30 | NUR ---
CONTINUES TO BE DISORIENTED TO PLACE AND SITUATION. TRYING TO CLIMB OUT OF BED. ADAIR MAT AND BED ALARM IN USE. DAUGHTER AT BEDSIDE.
[2017-07-18 20:00] VITALS: BP 131/70
--- NOTE | 2017-07-18 23:50 | NUR ---
PATIENT IS AWAKE, ALERT AND ORIENTED X'S 4. RESPIRATIONS ARE EVEN AND UNLABORED ON ROOM AIR. PATIENT HAS AN EMESIS BAG THAT HE IS SPITTING IN. HE STATED HE IS UNABLE TO SWALLOW HIS SPIT SO HE IS SPITTING IT INTO THE EMESIS BAG. ASSESSED PEG SITE, NO SIGNS OF BLEEDING. EDUCATED PATIENT ON SCDS, PATIENT AGREED TO LET ME PUT THEM BACK ON. APPLIED SCDS TO BILATERAL LEGS. PATIENT STATED HE CAN MOVE HIMSELF AROUND IN THE BED INDEPENDENTLY, HE STATED "IF SOMEONE IS IN THE ROOM WITH ME I CAN EVEN GET UP." AGREED WITH PATIENT NOT TO GET UP WITHOUT STAFF IN THE ROOM TO ASSIST. EDUCATED PATIENT ON FALL PRECAUTIONS, BED ALARM ON. EDUCATED PATIENT ON BED ALARM.
--- NOTE | 2017-07-18 23:55 | NUR ---
PATIENT IS RESTING QUIETLY WITH EYES CLOSED. NO SIGNS OF DISTRESS NOTED. PATIENT IS RECIEVING OXYGEN VIA OXYMIZER AT 14L/MIN. BED IN LOWEST POSITION, CALL LIGHT IN REACH. BED ALARM ON. DOOR OPEN.
[2017-07-19] VITALS: BP 160/70; BP 166/89
[2017-07-19 04:00] VITALS: BP 166/89
[2017-07-19 05:16] LABS: BASOPHILS 0 % (0-2); EOSINOPHILS 1.5 % (0-7); HEMATOCRIT 32.8 % (36.0-48.0); HEMOGLOBIN 10.8 g/dL (12-16); IMMATURE GRANULOCYTES 0.3 % (0-5); LYMPHOCYTES 6.1 % (15-50); MCH 27.6 pg (26.0-34.0); MCHC 32.9 g/dL (31.0-37.0); MEAN PLATELET VOLUME 8.5 fL (7.4-10.4); MONOCYTES 4.8 % (2-11); NEUTROPHILS 87.3 % (40-80); PLATELET COUNT 185 10x3/uL (130-400); RBC 3.91 10x6/uL (4.00-5.40); RDW 15.3 % (11.5-14.5); WBC 8.7 10x3/uL (4.8-10.8)
[2017-07-19 05:24] LABS: MCV 83.9 fL (80.0-100.0)
[2017-07-19 05:43] LABS: ALBUMIN 2.1 g/dL (3.4-5.0); ALKALINE PHOSPHATASE 75 U/L (46-116); ALT (SGPT) 26 U/L (10-68); CALC OSMOLALITY 263 mosm/kg (275-300); CALCIUM 8.2 mg/dL (8.5-10.1); CARBON DIOXIDE 28.5 mmol/L (21.0-32.0); CHLORIDE - SERUM 97 mmol/L (98-107); CREATININE - SERUM 0.4 mg/dL (0.6-1.3); GLUCOSE 96 mg/dL (74-106); MAGNESIUM - SERUM 1.8 mg/dL (1.8-2.4); POTASSIUM - SERUM 3.7 mmol/L (3.5-5.1); PROTEIN - SERUM 5.6 g/dL (6.4-8.2); SODIUM 133 mmol/L (136-145); eGFR NON AFRICAN AMERICAN > 90 mL/min (90-120)
[2017-07-19 05:51] LABS: UREA NITROGEN 8 mg/dL (7-18)
--- NOTE | 2017-07-19 07:25 | NUR ---
RESTING QUIETLY IN BED WITH EYES CLOSED. O2 15L IN USE PER OXIMIZER. BED ALARM AND ADAIR MAT IN USE.
[2017-07-19 08:30] VITALS: BP 190/84
--- NOTE | 2017-07-19 09:00 | NUR ---
TOO DROWSY TO TAKE AM MEDICATIONS.
--- NOTE | 2017-07-19 09:30 | NUR ---
ASSESSMENT COMPLETE. IV TO L AC PATENT. NS INFUSING AT 75 CC/HR VIA PUMP. TELEPHONE INTERVIEWER SHOWING ST WITH PAC'S 124 PER TECH. O2 15L PER OXIMIZER IN USE. BED ALARM AND ADAIR MAT IN USE. DROWSY BUT AWAKENS TO VERBAL STIMULI THEN FALLS IMMEDIATELY BACK TO SLEEP. DAUGHTER AT BEDSIDE.
--- NOTE | 2017-07-19 12:00 | NUR ---
SOB ON EXERTION. 13L PER OXIMIZER IN USE. SATS 89-92%. DAUGHTER AT BEDSIDE.
[2017-07-19 12:01] VITALS: BP 160/61
--- NOTE | 2017-07-19 14:32 | NUR ---
OT NOTE: PT INITIALLY SITTING UP IN BED EATING LUNCH. NOTED TO HAVE SOME DIFFICULTY WITH COORDINATION DURING FEEDING. PT ALSO HAVING SEVERAL COUGHING EPISODES DURING MEAL. PT STILL CONFUSED , BUT MUCH MORE ALERT TODAY. PT REQUESTING TO GO TO BATHROOM, SHE DID NOT WANT TO USE BED HORTON. PERFORMED BED MOB WITH MIN ASSIST, AND WITH THE HELP OF PHYS THERAPY, WE ASSISTED PT TO BEDSIDE COMMODE WITH MIN/MOD ASSIST FOR BALANCE. WHILE PT WAS UP ON BSC, SHE WAS BECOMMING INCREASINGLY SOB. WENT TO NURSES DESK TO REQUEST PULSE-OX, BUT NURSING STATED THAT SHE DOES NOT NEED TO BE OUT OF BED , SHE DE SATS QUICKLY. UPON RETURN TO ROOM, PT WAS FINISHED AND WAS ABLE TO PERFORM TOILET HYGIENE WITH MIN ASSIST. TRANSFERRED BACK TO BED WITH MOD ASSIST; ADJUSTED PT IN BED WITH HOB RAISED. PT STILL SOB. INSTRUCTED TO SLOW BREATHING DOWN AND DTR RETURNED TO ROOM. EXTENSIVE CONVERSATION WITH DTR REGARDING PREVIOUS TASK PERFORMANCE. UPON LEAVING ROOM, PTS BREATHING WAS LESS LABORED. WILL CHECK WITH NURSING BEFORE CONTINUING WITH FURTHER MOBILITY AND ADLS. EFRA LYONS, OTR/L
--- NOTE | 2017-07-19 14:44 | NUR ---
ADMINISTERED VAPOTHERM PER DR ORDERS 100%FIO2 ,40LPM, AND 37 DEGREES.
--- NOTE | 2017-07-19 15:00 | NUR ---
RESTING QUIETLY IN BED AT THIS TIME. VAPOTHERM 40L IN USE. DROWSY BUT AWAKENS EASILY TO VERBAL STIMULI. DAUGHTER AT BEDSIDE.
[2017-07-19 16:13] VITALS: BP 164/66
--- NOTE | 2017-07-19 19:45 | NUR ---
PT RESTING WITH EYES CLOSED. FAMILY AT BEDSIDE STATED SHE HAS BEEN ACTIVE THROUGHOUT THE DAY AND IT MOST LIKELY "WORN OUT". WILL CONTINUE WITH PLAN OF CARE.
[2017-07-19 19:49] VITALS: BP 157/75
--- NOTE | 2017-07-19 22:00 | NUR ---
PT TOO DROWSY TO TAKE SCHEDULED MEDICATIONS AT THIS TIME. WILL ATTEMPT AGAIN ONCE PT IS MORE AWAKE. SCD'S IN PLACE. ADAIR AND BED ALARM ON. WILL CONTINUE TO MONITOR.
[2017-07-20] VITALS: BP 172/92
--- NOTE | 2017-07-20 00:03 | NUR ---
PT AWAKE, SCHEDULED LOPRESSOR AND VASOTEC ADMINISTERED AT THIS TIME. IV IN LEFT FOREARM INFILTRATED DC'D WITH CATH TIP INTACT.
--- NOTE | 2017-07-20 00:40 | NUR ---
22G SITED IN LEFT HAND INFUSING NS @ 75.
[2017-07-20 04:00] VITALS: BP 165/80
[2017-07-20 05:14] LABS: BASOPHILS 0 % (0-2); EOSINOPHILS 0.2 % (0-7); HEMATOCRIT 34.9 % (36.0-48.0); HEMOGLOBIN 11.3 g/dL (12-16); IMMATURE GRANULOCYTES 0.5 % (0-5); LYMPHOCYTES 5.7 % (15-50); MCH 27.7 pg (26.0-34.0); MCHC 32.4 g/dL (31.0-37.0); MCV 85.5 fL (80.0-100.0); MEAN PLATELET VOLUME 8.6 fL (7.4-10.4); MONOCYTES 1.8 % (2-11); NEUTROPHILS 91.8 % (40-80); PLATELET COUNT 216 10x3/uL (130-400); RBC 4.08 10x6/uL (4.00-5.40); RDW 15.4 % (11.5-14.5)
[2017-07-20 05:15] LABS: WBC 6.1 10x3/uL (4.8-10.8)
[2017-07-20 05:53] LABS: ALKALINE PHOSPHATASE 88 U/L (46-116); ALT (SGPT) 24 U/L (10-68); BILIRUBIN - TOTAL 0.34 mg/dL (0.2-1.3); CALC OSMOLALITY 267 mosm/kg (275-300); CALCIUM 8.8 mg/dL (8.5-10.1); CARBON DIOXIDE 28.6 mmol/L (21.0-32.0); CHLORIDE - SERUM 98 mmol/L (98-107); CREATININE - SERUM 0.5 mg/dL (0.6-1.3); GLUCOSE 110 mg/dL (74-106); POTASSIUM - SERUM 4.6 mmol/L (3.5-5.1); SODIUM 134 mmol/L (136-145); UREA NITROGEN 11 mg/dL (7-18); eGFR NON AFRICAN AMERICAN > 90 mL/min (90-120)
[2017-07-20 07:50] VITALS: BP 181/86
--- NOTE | 2017-07-20 08:00 | NUR ---
ASSESSMENT COMPLETE. IV TO L HAND PATENT. NS INFUSING AT 75 CC/HR VIA PUMP. VAPOTHERM IN USE AT 40 LITERS. OPTICAL LABORATORY MECHANIC SHOWING SR 100 PER TECH. SOB ON EXERTION. SCD'S IN USE TO BILAT LEGS. DROWSY BUT AWAKENS TO VERBAL STIMULI.
--- NOTE | 2017-07-20 08:30 | EC ---
PATIENT:JOHANNY DOWD DATE OF SERVICE: 07/14/17 SEX: F MEDICAL RECORD: [id number] DATE OF : 31 LOCATION:[facility] AGE OF PATIENT: 87 ADMISSION DATE: 07/14/17 REFERRING PHYSICIAN: INTERPRETING PHYSICIAN: MIGUEL ALVAREZ MD ECHOCARDIOGRAM REPORT ECHO CHARGES 4 ECHO COMPLETE CLINICAL DIAGNOSIS: SOB/ELEVATED D-DIMER/TACHYCARDIA ECHOCARDIOGRAPHIC MEASUREMENTS (adult normal given) AC root (d.<3.7cm) 3.6 cm LV Septum d (<1.2 cm> 1.6 cm Valve Excursion 1.1 cm LV Septum (systole) 1.7 cm Left Atria (s.<4.0cm> 3.2 cm LVPW d(<1.2cm) 1.4 cm RV (d.<2.3cm) 3.3 cm LVPW (sytole) 1.5 cm LV diastole(<5.6CM) 4.0 cm MV E-F(>70mm/sec) cm LV systole 2.3 cm LVOT Diameter 1.4 cm MV exc.(>10mm) 1.6 cm Est.ejection fraction (50-75%) % Pericardial Effusion N DOPPLER: LVIT cm/sec A 138 cm/sec E 97.0 cm/sec LA cm/sec RVSP 65 mmHg LVOT 137 cm/sec AOP1/2T m/s Asc. Ao 274 cm/sec RVOT 125 cm/sec RA cm/sec PA 160 cm/sec AV Gradient Peak 30.09mmHg AV Mean 18.76mmHg AV Area 0.80 cm MV Gradient Peak 15.77mmHg MV Mean 5.02 mmHg MV Area cm COMMENTS: Food Vendor: Honey COHEN Music Producer: Solo Alvarez TAPE# PACS DATE OF SERVICE: 07/19/2017 Transthoracic echocardiogram FINDINGS: 1. The patient has moderate concentric left ventricular hypertrophy with hyperdynamic left ventricular systolic function, ejection fraction of 85% to 90%. Of note is the posterior wall is much more hyperdynamic than the anterior wall. 2. The mitral valve is structurally normal. There is no significant mitral ECHOCARDIOGRAM REPORT [id number] JOHANNY DOWD regurgitation. 3. The left atrium is normal size, normal function. 4. The right ventricle is mildly dilated and there is evidence of right ventricular hypertrophy. 5. There is trace pericardial effusion throughout the heart without any evidence of tamponade physiology. Of note is significant tachycardia through the evaluation. Inflow characteristics across the mitral valve indicate diastolic dysfunction. 6. Tricuspid valve has mild tricuspid regurgitation. There is elevated right ventricular systolic pressure 60 to 65 mmHg. 7. The pulmonic valve is normal. 8. The right atrium is shown to have normal structure and function. 9. The right ventricle is mildly dilated with RVH. Aortic valve demonstrates moderate elevations in her systolic pressures and what appears to be mild aortic stenosis. In conclusion, the patient has evidence of hypertensive heart disease, hyperdynamic LV systolic function, mild aortic stenosis and pulmonary hypertension. TRANSINT:[id number] Voice Confirmation ID: [id number] DOCUMENT ID: [id number] MIGUEL ALVAREZ MD at 0830 CC: [id number] DICTATION DATE: 07/19/17 1549 BETTING AGENCY MANAGER: 07/19/17 1854 ADM IN [facility] [address] [place] [address]
--- NOTE | 2017-07-20 11:05 | NUR ---
SITTING UP IN CHAIR. RESP NONLABORED AT THIS TIME.
[2017-07-20 12:03] VITALS: BP 147/83
--- NOTE | 2017-07-20 12:45 | NUR ---
OT NOTE: PT IN ROOM SITTING UP IN CHAIR; PT DOING WELL BUT HAVING DIFFICULTY GETTING HER TRAY SET UP, FOOD JUST ARRIVED. STILL SOME CONFUSION. AFTER FOOD HAD BEEN CUT AND STRAW PLACED IN DRINK, PT WAS ABLE TO FEED SELF. MINIMAL COORDINATION DEFECITS WHILE FEEDING. NO FAMILY AVAILABLE AT THIS TIME
--- NOTE | 2017-07-20 15:00 | NUR ---
SITTING UP IN CHAIR. DENIES ANY NEEDS AT THIS TIME. COMPLAINING OF NOSE BEING DRY AND BLEEDING SOME. SALINE NASAL SPRAY IN USE.
[2017-07-20 16:16] VITALS: BP 180/78
--- NOTE | 2017-07-20 18:00 | NUR ---
VISITING WITH DAUGHTER. NO CHANGES NOTED AT THIS TIME.
[2017-07-20 20:00] VITALS: BP 150/68
[2017-07-21] VITALS: BP 121/48
--- NOTE | 2017-07-21 02:15 | NUR ---
PT RESTING QUIETLY, EYES CLOSED. VAPOTHERM @ 40L/MIN. RESP EVEN, UNLABORED. NO DISTRESS NOTED. CONTINUE HEAD REFRIGERATING ENGINEER'S PLAN OF CARE.
[2017-07-21 04:21] VITALS: BP 136/71
[2017-07-21 05:49] LABS: BASOPHILS 0.1 % (0-2); EOSINOPHILS 0 % (0-7); HEMATOCRIT 34.2 % (36.0-48.0); HEMOGLOBIN 10.9 g/dL (12-16); IMMATURE GRANULOCYTES 0.1 % (0-5); LYMPHOCYTES 6.6 % (15-50); MCH 27.2 pg (26.0-34.0); MCHC 31.9 g/dL (31.0-37.0); MCV 85.3 fL (80.0-100.0); MEAN PLATELET VOLUME 8.7 fL (7.4-10.4); MONOCYTES 2.7 % (2-11); NEUTROPHILS 90.5 % (40-80); PLATELET COUNT 219 10x3/uL (130-400); RBC 4.01 10x6/uL (4.00-5.40); RDW 15.1 % (11.5-14.5)
[2017-07-21 05:51] LABS: WBC 7.9 10x3/uL (4.8-10.8)
[2017-07-21 06:14] LABS: ALBUMIN 2.1 g/dL (3.4-5.0); ALKALINE PHOSPHATASE 85 U/L (46-116); CARBON DIOXIDE 33.8 mmol/L (21.0-32.0); CHLORIDE - SERUM 101 mmol/L (98-107); CREATININE - SERUM 0.5 mg/dL (0.6-1.3); POTASSIUM - SERUM 4.2 mmol/L (3.5-5.1); PROTEIN - SERUM 5.7 g/dL (6.4-8.2); SODIUM 137 mmol/L (136-145); eGFR NON AFRICAN AMERICAN > 90 mL/min (90-120)
[2017-07-21 06:18] LABS: ALT (SGPT) 34 U/L (10-68); CALC OSMOLALITY 279 mosm/kg (275-300); GLUCOSE 195 mg/dL (74-106); UREA NITROGEN 16 mg/dL (7-18)
--- NOTE | 2017-07-21 06:28 | NUR ---
PATIENT SLEPT THROUGH THE NIGHT MOSTLY ON HER LEFT SIDE R/T SUBSCAPBULAR PAIN. VAPOTHEREM SETTING FIO2 WERE DROPPED TO 90%. PATIENT HAS REMMAINED STABLE MOSTLY. [place] BREATHING WAS NOTED THIS MORNING.
--- NOTE | 2017-07-21 06:50 | NUR ---
WENT INTO TO PATIENTS ROOM, SHE WAS NOT HOOKED UP TO HER VAPOTHERM, HER WATER FOR INHALATION WAS COMPLETELY EMPTY ON THE VAPOTHERM, PATIENT WAS HANGING HALF WAY OUT OF BED AND THE DOOR WAS SHUT. PATIENTS 02 SAT WAS 46% I PUT A NEW WATER FOR INHALATION ON VAPOTHERM AND CONNECTED PATIENT, ME AND 2 NURSES STRAIGHTEND HER IN BED AND WATCHED HER TIL HER 02 SATS CAME UP TO 97%.
--- NOTE | 2017-07-21 07:10 | NUR ---
AWAKE AND ALERT AT THIS TIME. ON VAPOTHERM 40% 90FIO2. OXYGEN SATURATION 98%. ASSISTED UP IN THE BED. SCD'S TO BLE WITH SKIN TO BLE WNL. ADAIR ALARM ON AND IN WORKING ORDER. IV TO LEFT HAND PATENT WITH NO S/S OF INFILTRATION PRESENT. CALL LIGHT IN REACH AND DOOR OPEN. WILL CONTINUE WITH PLAN OF CARE.
--- NOTE | 2017-07-21 08:57 | NUR ---
SCHEDULED MEDICATIONS GIVEN ONE AT A TIME IN APPLESAUCE WITHOUT DIFFICULTY. ASSISTED BY MARCELO PEÑA. CONTINUOUS PULSE OX PLACED ON PT AND SHE IS 99% ON 40L/MIN 90 FIO2. DOOR REMAINS OPEN AND CALL LIGHT IN REACH. WILL CONTINUE WITH PLAN OF CARE.
[2017-07-21 09:24] VITALS: BP 145/78
[2017-07-21 12:49] VITALS: BP 109/47
--- NOTE | 2017-07-21 13:43 | NUR ---
ABRASION FOUND TO LEFT FLANK WHEN PT ATTEMPTED TO GET PT FROM BED TO CHAIR. VASELINE GAUZE, NON ADHERENT PAD AND TAPE APPLIED TO SITE TO PROVIDE PROTECTION.
[2017-07-21 20:02] VITALS: BP 147/79
--- NOTE | 2017-07-21 20:36 | NUR ---
RT PAGED FOR SOB AND 80'S SPO2
[2017-07-21 23:51] VITALS: BP 149/71
--- NOTE | 2017-07-22 01:29 | NUR ---
PATIENT RESTING IN BED WITH EYES CLOSED AND NO VISIBLE SIGNS OF DISTRESS. BED IN LOWEST POSITION AND CALL LIGHT WITHIN REACH.
[2017-07-22 03:57] VITALS: BP 155/89
[2017-07-22 04:42] LABS: BASOPHILS 0.1 % (0-2); EOSINOPHILS 0 % (0-7); HEMATOCRIT 32.8 % (36.0-48.0); HEMOGLOBIN 10.5 g/dL (12-16); IMMATURE GRANULOCYTES 0.5 % (0-5); LYMPHOCYTES 6.4 % (15-50); MCH 27.5 pg (26.0-34.0); MCV 85.9 fL (80.0-100.0); MEAN PLATELET VOLUME 8.6 fL (7.4-10.4); MONOCYTES 3.5 % (2-11); NEUTROPHILS 89.5 % (40-80); PLATELET COUNT 215 10x3/uL (130-400); RBC 3.82 10x6/uL (4.00-5.40); RDW 15.2 % (11.5-14.5); WBC 7.5 10x3/uL (4.8-10.8)
[2017-07-22 05:06] LABS: ALKALINE PHOSPHATASE 73 U/L (46-116); ALT (SGPT) 33 U/L (10-68); CALC OSMOLALITY 276 mosm/kg (275-300); CALCIUM 8.7 mg/dL (8.5-10.1); CARBON DIOXIDE 33.5 mmol/L (21.0-32.0); CHLORIDE - SERUM 100 mmol/L (98-107); CREATININE - SERUM 0.5 mg/dL (0.6-1.3); GLUCOSE 178 mg/dL (74-106); POTASSIUM - SERUM 4.5 mmol/L (3.5-5.1); PROTEIN - SERUM 5.3 g/dL (6.4-8.2); SODIUM 136 mmol/L (136-145); UREA NITROGEN 15 mg/dL (7-18); eGFR NON AFRICAN AMERICAN > 90 mL/min (90-120)
--- NOTE | 2017-07-22 07:25 | NUR ---
AWAKE, ALERT AND CONVERSANT THIS AM. SON AT BEDSIDE. VAPOTHERM ON 40L WITH FIO2 70. OXYGEN SATURATION 97%. DENIES NEEDS AT THIS TIME. CALL LIGHT IN REACH, WILL CONTINUE WITH PLAN OF CARE.
--- NOTE | 2017-07-22 08:15 | NUR ---
SCHEDULED MEDICATIONS ADMINISTERED AT THIS TIME WITHOUT DIFFICULTY. PT TOOK MEDICATIONS SLOWLY, BUT DID NOT HAVE ANY DIFFICULTY SWALLOWING. REMAINS HIGH GERMAN'S IN BED WITH DOOR OPEN AND SON AT BEDSIDE. FEEDING SELF WITHOUT ISSUE. CALL LIGHT IN REACH, WILL CONTINUE WITH PLAN OF CARE.
[2017-07-22 08:38] VITALS: BP 162/89
--- NOTE | 2017-07-22 09:48 | NUR ---
PT HAS BEEN INSTRUCTED NUMEROUS TIMES NOT TAKE HER VAPOTHERM OFF, PT CONTINUES TO REMOVE VAPOTHERM CANNULA.
--- NOTE | 2017-07-22 12:00 | NUR ---
REMAINS AWAKE AND ALERT WITH VISITORS AT BEDSIDE. VAPOTHERM REMAINS ON. CALL LIGHT IN REACH AND DOOR OPEN. WILL CONTINUE WITH PLAN OF CARE.
[2017-07-22 12:08] VITALS: BP 152/74
--- NOTE | 2017-07-22 16:10 | NUR ---
ASSISTED PT TO AND FROM BEDSIDE COMMODE.
[2017-07-22 16:16] VITALS: BP 144/74
[2017-07-22 19:55] VITALS: BP 150/83
--- NOTE | 2017-07-22 22:54 | NUR ---
PATIENT REFUSED DAILY WEIGHT.
--- NOTE | 2017-07-23 03:30 | NUR ---
PT RESTING QUIETLY, EYES CLOSED. RESP EVEN, UNLABORED. NO DISTRESS NOTED. CONTINUE ESL PROFESSOR'S PLAN OF CARE. =
--- NOTE | 2017-07-23 04:00 | NUR ---
PT FOUND SITTING BESIDE HER BED BY MARCELO MICHELLE. SKIN TEAR ON RIGHT HAND BLEEDING. PROCESS DEVELOPMENT ENGINEER NOTIFIED.
[2017-07-23 04:01] VITALS: BP 148/82
--- NOTE | 2017-07-23 05:05 | NUR ---
PATIENT WAS PUT BACK IN BED AFTER RIGHT HAND WAS CLEANED. SHE HAD KNOCKED OF SCAB FROM PREVIOUS WOUND AND THE BLEEDING WAS STOPPED. EBL WAS AROUND 5mL. PATIENT WAS ONLY COMLAINED ABOUT PREVIOUS BACK PAIN AND NONE NEW. BED RAILS PLACED UP x3, BED ALARM AND ADAIR ALARM TURNED ON, CALL LIGHT PLACED ON PATIENT'S ABDOMEN. NO NEEDS NOTED BY PATIENT.
--- NOTE | 2017-07-23 05:13 | NUR ---
PATIENT'S DAUGHTER WAS NOTIFIED OF THE FALL, HOUSEHOLD REFRIGERATOR MECHANIC WILBER WAS INFORMED PREVIOUSLY AND GAVE GUIDANCE TO CALL THE [facility] AT 0700. SHE STATED THAT SHE WOULD NOT CALL THE ER PHYSICIAN FOR A FALL.
[2017-07-23 05:35] LABS: BASOPHILS 0 % (0-2); EOSINOPHILS 0 % (0-7); HEMATOCRIT 35.7 % (36.0-48.0); HEMOGLOBIN 11.3 g/dL (12-16); IMMATURE GRANULOCYTES 0.9 % (0-5); LYMPHOCYTES 6.1 % (15-50); MCH 27.2 pg (26.0-34.0); MCHC 31.7 g/dL (31.0-37.0); MCV 85.8 fL (80.0-100.0); MEAN PLATELET VOLUME 8.4 fL (7.4-10.4); MONOCYTES 6.3 % (2-11); NEUTROPHILS 86.7 % (40-80); PLATELET COUNT 200 10x3/uL (130-400); RBC 4.16 10x6/uL (4.00-5.40); WBC 6.9 10x3/uL (4.8-10.8)
--- NOTE | 2017-07-23 05:45 | NUR ---
IT TEACHER ADVISED TO PAGE THE PHYSICIAN. PAGE WAS SENT, AWAITING RETURN CALL.
[2017-07-23 05:49] LABS: ALBUMIN 2.4 g/dL (3.4-5.0); ALKALINE PHOSPHATASE 84 U/L (46-116); CALC OSMOLALITY 278 mosm/kg (275-300); CALCIUM 8.4 mg/dL (8.5-10.1); CARBON DIOXIDE 36.9 mmol/L (21.0-32.0); CHLORIDE - SERUM 95 mmol/L (98-107); CREATININE - SERUM 0.6 mg/dL (0.6-1.3); GLUCOSE 204 mg/dL (74-106); MAGNESIUM - SERUM 1.8 mg/dL (1.8-2.4); PHOSPHOROUS 3.3 mg/dL (2.5-4.9); PROTEIN - SERUM 5.7 g/dL (6.4-8.2); SODIUM 136 mmol/L (136-145); UREA NITROGEN 14 mg/dL (7-18); eGFR NON AFRICAN AMERICAN > 90 mL/min (90-120)
[2017-07-23 05:50] LABS: ALT (SGPT) 46 U/L (10-68)
[2017-07-23 06:33] VITALS: BP 197/102
--- NOTE | 2017-07-23 06:46 | NUR ---
DR RIZO RETURNED PAGE. SHE WAS INFORMED OF THE HTN AND FSBG OF 190 AND THE DECREASED LOC. SHE STATED THAT NICKIE FRANK WILL BE HERE SOON AND CHECK ON HER THIS MORNING.
--- NOTE | 2017-07-23 07:30 | NUR ---
PT CONFUSED PT AOX1 SELF IV TO LEFT FOREARM PATENT AND INTACT AT THIS TIME IV SRX2 BED AT LOWEST SETTING CALL LIGHT WITHIN REACH WILL CONTINUE TO MONITOR
--- NOTE | 2017-07-23 07:53 | NUR ---
PT CONFUSED THIS AM PT AOX1 SELF. RESP EVEN AND NONLABORED PT DENIES NEEDS AT THIS TIME SRX2 BED AT LOWEST SETTING CALL LIGHT WITHIN REACH WILL CONTINUE TO MONITOR
[2017-07-23 08:15] VITALS: BP 195/111
--- NOTE | 2017-07-23 10:22 | NUR ---
ASSESSED RESP STATUS CLEAR BILATERAL BREATH SOUNDS RESP 20 PER MN. FAINT EXP CRACKLES NOTED TO RIGHT APEX. VAPOTHERM FUNCTIONING 40LPM 70% AND 37 DEGREES. SPO2 ON CURRENT 98% HR 93. PT APPEARS TO BE RESTING WITH NO S/S OF ANY RESP. DISTRESS.
[2017-07-23 12:09] VITALS: BP 184/101
[2017-07-23 16:56] VITALS: BP 184/97
[2017-07-23 20:00] VITALS: BP 172/81
--- NOTE | 2017-07-23 22:40 | NUR ---
REC'D LYING IN BED. ALERT AND ORIENTED X2. DENIED PAIN AT THIS TIME. DENIED NEEDS AT THIS TIME. NO DISTRESS NOTED. INSTRUCTED TO CALL IF NEEDED ANYTHING, VERBALIZED UNDERSTANDING. WILL CONT TO MONITOR. BED LOW, LOCKED, CALL LIGHT IN REACH, ALARMS ON.
[2017-07-24] VITALS: BP 168/77
--- NOTE | 2017-07-24 01:38 | NUR ---
EYES CLOSED RESPIRATIONS WITH EAS AND UNLABORED. O2 ON PER OXIMYZER
[2017-07-24 05:23] LABS: BASOPHILS 0.1 % (0-2); EOSINOPHILS 0 % (0-7); HEMOGLOBIN 11.5 g/dL (12-16); IMMATURE GRANULOCYTES 1.5 % (0-5); LYMPHOCYTES 7.3 % (15-50); MCH 27.4 pg (26.0-34.0); MCHC 31.9 g/dL (31.0-37.0); MCV 85.7 fL (80.0-100.0); MEAN PLATELET VOLUME 8.8 fL (7.4-10.4); MONOCYTES 4.6 % (2-11); NEUTROPHILS 86.5 % (40-80); PLATELET COUNT 226 10x3/uL (130-400); WBC 7.4 10x3/uL (4.8-10.8)
[2017-07-24 05:45] LABS: ALBUMIN 2.3 g/dL (3.4-5.0); ALKALINE PHOSPHATASE 87 U/L (46-116); ALT (SGPT) 41 U/L (10-68); BILIRUBIN - TOTAL 0.26 mg/dL (0.2-1.3); CALC OSMOLALITY 270 mosm/kg (275-300); CALCIUM 8.2 mg/dL (8.5-10.1); CARBON DIOXIDE 37.8 mmol/L (21.0-32.0); CHLORIDE - SERUM 92 mmol/L (98-107); GLUCOSE 188 mg/dL (74-106); POTASSIUM - SERUM 4.2 mmol/L (3.5-5.1); PROTEIN - SERUM 5.2 g/dL (6.4-8.2); SODIUM 132 mmol/L (136-145); UREA NITROGEN 14 mg/dL (7-18)
[2017-07-24 05:48] LABS: CREATININE - SERUM 0.4 mg/dL (0.6-1.3); eGFR NON AFRICAN AMERICAN > 90 mL/min (90-120)
--- NOTE | 2017-07-24 07:32 | NUR ---
REPORT RECEIVED FROM DRUM PRINTER NURSE. CALL LIGHT IN REACH.
[2017-07-24 08:09] VITALS: BP 190/94
--- NOTE | 2017-07-24 08:34 | NUR ---
ASSESSMENT COMPLETED. AM MEDS ADMINISTERED. SCDs TO BLE. VISITOR IN ROOM. BED ALARM X3 ON. CALL LIGHT IN REACH. WILL CONTINUE WITH PLAN OF CARE.
--- NOTE | 2017-07-24 10:59 | NUR ---
SITTING IN CHAIR PER PT. TOLERATING WELL AT THIS TIME. ALARM ON. VISITOR AT BEDSIDE.
--- NOTE | 2017-07-24 12:01 | CN ---
PATIENT NAME:JOHANNY DWOD MEDICAL RECORD: [id number] : 32 LOCATION:[facility] ADMIT DATE: 07/14/17 ACCOUNT: [id number] CONSULTING PHYSICIAN: JOAN HUFF MD REFERRING PHYSICIAN: RICARDO RODRIGUEZ MD DATE OF CONSULTATION: 07/19/2017 HISTORY OF PRESENT ILLNESS: An 87-year-old lady with history of pulmonary fibrosis, hospitalized previously for pneumonitis, was admitted with mental status changes and confusion. The patient is currently still pleasantly confused. No family present. She has a history of hypertension. She was noted to be tachycardic, this is via 12-lead and telemetry, sinus rhythm. She does have occasional PAC and PVC. No high-grade arrhythmias are noted. We are asked to see her concerning her cardiovascular status. PAST MEDICAL HISTORY: Includes: 1. History of hypertension. 2. Pulmonary fibrosis. 3. Gastroesophageal reflux disease. ALLERGIES: SULFA, INDAPAMIDE, DOXYCYCLINE, AUGMENTIN, CLARITHROMYCIN AND AMLODIPINE. MEDICATIONS: Prior to admission include multivitamin daily, magnesium oxide 400 daily, MiraLax 17 g daily, Protonix 40 daily, benzonatate 200 mg b.i.d., Cymbalta 60 mg p.o. daily, enalapril 10 mg p.o. daily, metoprolol 25 b.i.d. and albuterol p.r.n. SOCIAL HISTORY: Unobtainable. REVIEW OF SYSTEMS: Unobtainable. PHYSICAL EXAMINATION: GENERAL: Pleasantly confused female, in no acute distress, on O2. VITAL SIGNS: Pulse 131, blood pressure 160/61 and currently regular. HEENT: Normocephalic, atraumatic. NECK: No bruits noted. HEART: Tachycardic. I do not hear a gallop. LUNGS: Diminished air excursion. ABDOMEN: Soft, nontender. EXTREMITIES: Pulses are palpable, 1+. There is no edema. IMPRESSION: Tachycardia, suspect secondary to underlying lung disease, maybe exacerbated by steroids, et cetera. Given she is hypertensive, we will increase her metoprolol to 50 b.i.d. Check echocardiographic study. Further recommendations based on clinical course. TRANSINT:[id number] Voice Confirmation ID: [id number] DOCUMENT ID: [id number] CONSULT REPORT [id number] JOHANNY DOWD GREGORY A MD at 1201 CC: [id number] DICTATION DATE: 07/19/171557 CHILD PSYCHOLOGIST: 07/19/17 194 ADM IN [facility] [address] [place] [address]
--- NOTE | 2017-07-24 12:26 | NUR ---
PROBIOTIC PO. VISITOR IN ROOM. CALL LIGHT IN REACH.
[2017-07-24 12:43] VITALS: BP 171/92
--- NOTE | 2017-07-24 14:30 | NUR ---
FAMILY IN ROOM. NO NEEDS VOICED. CALL LIGHT IN REACH.
--- NOTE | 2017-07-24 14:54 | NUR ---
PATIENT IN BED WITH NO COMPLAINTS OR SIGNS OF DISTRESS. FAMILY AT BEDSIDE. IV INTACT. O2 ON. CALL LIGHT WITHIN REACH.
--- NOTE | 2017-07-24 14:55 | NUR ---
NUTRITION F/U CHART REVIEWED. PT VISIT. PT AND CAREGIVER REPORTS PT WITH IMPROVED PO INTAKE TODAY. ALSO DRINKING ENSURE. WILL CONTINUE TO PROVIDE REG DIET, ENSURE. MONITOR PO INTAKE. RD FOLLOWING
[2017-07-24 16:20] VITALS: BP 161/72
--- NOTE | 2017-07-24 16:50 | NUR ---
DENIES PAIN OR NEEDS AT THIS TIME. CALL LIGHT IN REACH.
--- NOTE | 2017-07-24 18:21 | NUR ---
LATA RODRIGUEZ AND STEFANI BUSTAMANTE. DENIES NEEDS. CALL LIGHT IN REACH.
[2017-07-24 20:00] VITALS: BP 189/84
--- NOTE | 2017-07-24 20:00 | NUR ---
INTELLIGENCE SENIOR SERGEANT ASSISTED PATIENT TO THE BEDSIDE COMMODE PER PATIENT REQUEST. SHE VOIDED. INTELLIGENCE SENIOR SERGEANT ASSISTED PATIENT BACK TO BED. SHE DENIES NEEDS AT THIS TIME. BED IN LOWEST POSITION, CALL LIGHT IN REACH. VAPOTHERM ON.
[2017-07-25 05:17] LABS: BASOPHILS 0.4 % (0-2); EOSINOPHILS 0 % (0-7); HEMATOCRIT 37.9 % (36.0-48.0); IMMATURE GRANULOCYTES 5.7 % (0-5); LYMPHOCYTES 6.5 % (15-50); MCH 27.3 pg (26.0-34.0); MCHC 31.7 g/dL (31.0-37.0); MCV 86.1 fL (80.0-100.0); MEAN PLATELET VOLUME 8.9 fL (7.4-10.4); MONOCYTES 2.7 % (2-11); NEUTROPHILS 84.7 % (40-80); PLATELET COUNT 198 10x3/uL (130-400); WBC 8.3 10x3/uL (4.8-10.8)
[2017-07-25 05:40] LABS: ALBUMIN 2.3 g/dL (3.4-5.0); ALKALINE PHOSPHATASE 81 U/L (46-116); ALT (SGPT) 39 U/L (10-68); BILIRUBIN - TOTAL 0.29 mg/dL (0.2-1.3); CALC OSMOLALITY 270 mosm/kg (275-300); CALCIUM 8.3 mg/dL (8.5-10.1); CARBON DIOXIDE 38.9 mmol/L (21.0-32.0); CHLORIDE - SERUM 92 mmol/L (98-107); CREATININE - SERUM 0.5 mg/dL (0.6-1.3); GLUCOSE 196 mg/dL (74-106); POTASSIUM - SERUM 4.2 mmol/L (3.5-5.1); PROTEIN - SERUM 5.7 g/dL (6.4-8.2); SODIUM 132 mmol/L (136-145); UREA NITROGEN 14 mg/dL (7-18); eGFR NON AFRICAN AMERICAN > 90 mL/min (90-120)
--- NOTE | 2017-07-25 07:25 | NUR ---
PT AOX4 RESP EVEN AND NONLABORED PT DENIES NEEDS AT THIS TIME IV TO LEFT HAND PATENT AND INTACT AT THIS TIME SRX2 BED AT LOWEST SETTING CALL LIGHT WITHIN REACH WILL CONTINUE TO MONITOR
[2017-07-25 08:34] VITALS: BP 158/74
[2017-07-25 12:16] VITALS: BP 155/81
[2017-07-25 17:46] VITALS: BP 187/97
[2017-07-25 20:00] VITALS: BP 144/92
[2017-07-26] VITALS: BP 139/88
[2017-07-26 04:00] VITALS: BP 145/89
[2017-07-26 06:32] LABS: BASOPHILS 0.2 % (0-2); EOSINOPHILS 0 % (0-7); HEMATOCRIT 39.4 % (36.0-48.0); HEMOGLOBIN 12.7 g/dL (12-16); IMMATURE GRANULOCYTES 3.5 % (0-5); LYMPHOCYTES 4.5 % (15-50); MCH 27.5 pg (26.0-34.0); MCHC 32.2 g/dL (31.0-37.0); MCV 85.5 fL (80.0-100.0); MEAN PLATELET VOLUME 8.9 fL (7.4-10.4); MONOCYTES 4.9 % (2-11); NEUTROPHILS 86.9 % (40-80); RBC 4.61 10x6/uL (4.00-5.40); RDW 15.1 % (11.5-14.5)
[2017-07-26 07:04] LABS: ALBUMIN 2.4 g/dL (3.4-5.0); ALKALINE PHOSPHATASE 76 U/L (46-116); ALT (SGPT) 36 U/L (10-68); BILIRUBIN - TOTAL 0.31 mg/dL (0.2-1.3); CALC OSMOLALITY 272 mosm/kg (275-300); CALCIUM 8.3 mg/dL (8.5-10.1); CARBON DIOXIDE 36.6 mmol/L (21.0-32.0); CHLORIDE - SERUM 93 mmol/L (98-107); CREATININE - SERUM 0.4 mg/dL (0.6-1.3); GLUCOSE 167 mg/dL (74-106); POTASSIUM - SERUM 4.2 mmol/L (3.5-5.1); PROTEIN - SERUM 5.7 g/dL (6.4-8.2); SODIUM 134 mmol/L (136-145); UREA NITROGEN 14 mg/dL (7-18); eGFR NON AFRICAN AMERICAN > 90 mL/min (90-120)
[2017-07-26 07:11] LABS: PLATELET COUNT 240 10x3/uL (130-400)
--- NOTE | 2017-07-26 07:20 | NUR ---
ASSESSMENT COMPLETE. IV TO L HAND PATENT. NS INFUSING AT 50 CC/HR VIA PUMP. VAPOTHERM IN USE AT 35L. DRESSING TO L FLANK INTACT. FOAM RUBBER FABRICATOR SHOWING SR 74 PER TECH. DROWSY BUT AWAKENS TO VERBAL STIMULI.
[2017-07-26 08:31] VITALS: BP 197/99
--- NOTE | 2017-07-26 12:00 | NUR ---
SITTING UP IN CHAIR VISITING WITH FRIEND. CONTINUES TO BE DROWSY.
[2017-07-26 13:59] VITALS: BP 176/80
[2017-07-26 16:01] VITALS: BP 157/66
[2017-07-26 20:00] VITALS: BP 147/66
[2017-07-27] VITALS: BP 153/82
[2017-07-27 04:00] VITALS: BP 149/77
[2017-07-27 05:49] LABS: BASOPHILS 0.2 % (0-2); EOSINOPHILS 0 % (0-7); HEMATOCRIT 39.3 % (36.0-48.0); HEMOGLOBIN 12.6 g/dL (12-16); IMMATURE GRANULOCYTES 5.7 % (0-5); LYMPHOCYTES 4.2 % (15-50); MCH 27.4 pg (26.0-34.0); MCHC 32.1 g/dL (31.0-37.0); MCV 85.4 fL (80.0-100.0); MONOCYTES 3.6 % (2-11); NEUTROPHILS 86.3 % (40-80); PLATELET COUNT 236 10x3/uL (130-400); RDW 15.1 % (11.5-14.5)
[2017-07-27 06:14] LABS: ALBUMIN 2.3 g/dL (3.4-5.0); ALKALINE PHOSPHATASE 72 U/L (46-116); ALT (SGPT) 34 U/L (10-68); BILIRUBIN - TOTAL 0.35 mg/dL (0.2-1.3); CALC OSMOLALITY 268 mosm/kg (275-300); CALCIUM 8.4 mg/dL (8.5-10.1); CARBON DIOXIDE 38.5 mmol/L (21.0-32.0); CHLORIDE - SERUM 94 mmol/L (98-107); CREATININE - SERUM 0.4 mg/dL (0.6-1.3); GLUCOSE 133 mg/dL (74-106); POTASSIUM - SERUM 4.1 mmol/L (3.5-5.1); PROTEIN - SERUM 5.5 g/dL (6.4-8.2); SODIUM 133 mmol/L (136-145); UREA NITROGEN 16 mg/dL (7-18); eGFR NON AFRICAN AMERICAN > 90 mL/min (90-120)
--- NOTE | 2017-07-27 07:30 | NUR ---
PT ASSESSMENT COMPLETE AWAKE AND ALERT ON VAPOTHERM AT 50 % O2 AT 35 LPM CALL LIGHT INREACH SIDE RAILS UP X 2 VOICES ALL NEEDS TO STAFF ASSIST TO BSC PER STAFF X 2 PT TOLERATED WELL.
[2017-07-27 09:12] VITALS: BP 144/89; BP 177/100
[2017-07-27 12:30] VITALS: BP 190/88
[2017-07-27 16:42] VITALS: BP 154/86
--- NOTE | 2017-07-27 16:42 | NUR ---
PT WITH NO DISTRESS NOTED ELECTRICAL PROSPECTING OBSERVER IN ROOM AT THIS TIME
--- NOTE | 2017-07-27 19:00 | NUR ---
REPORT RECEIVED AND CARE OF PT ASSUMED. PT LYING IN HIGH GERMAN'S POSITION WATCHING TV. IV IN ELFT HAND PATENT WITH NS INFUSING AT 50 ML / HR. VAPOTERM IN USE AT 50% O2 AT 35 L. CONTINUOUS PULSE OX IN USE AND PT SATS 97% AT THIS ASSESSMENT. TELEMETRY IN PLACE AND READING 77 SR AT THIS CHECK. WILL MONITOR CLOSELY FOR NEEDS. BED ALARM IN USE.
--- NOTE | 2017-07-27 20:00 | NUR ---
PT UP TO BSC TO HAVE BM. REQUIRES 2 PERSON ASSIST TO GET UP TO BSC AND BACK IN BED.
--- NOTE | 2017-07-27 20:35 | NUR ---
HS MEDICATIONS GIVEN. FSBS 235 THIS CHECK REQUIRING COVERAGE WITH 8 UNITS OF INSULIN PER SLIDING SCALE. WILL CONTINUE TO MONITOR FOR NEEDS.
[2017-07-27 23:20] VITALS: BP 184/87
--- NOTE | 2017-07-28 00:40 | NUR ---
PT ASSISTED UP TO BSC FOR BM / URINATION. POSITIONED BACK IN BED FOR COMFORT.
[2017-07-28 04:00] VITALS: BP 179/79
[2017-07-28 06:22] LABS: HEMATOCRIT 40.4 % (36.0-48.0); HEMOGLOBIN 13.2 g/dL (12-16); MCH 27.3 pg (26.0-34.0); MCHC 32.7 g/dL (31.0-37.0); MCV 83.6 fL (80.0-100.0); MEAN PLATELET VOLUME 9.4 fL (7.4-10.4); PLATELET COUNT 266 10x3/uL (130-400); RBC 4.83 10x6/uL (4.00-5.40); RDW 15.1 % (11.5-14.5); WBC 20.3 10x3/uL (4.8-10.8)
[2017-07-28 06:36] LABS: ALBUMIN 2.5 g/dL (3.4-5.0); ALKALINE PHOSPHATASE 78 U/L (46-116); ALT (SGPT) 42 U/L (10-68); BILIRUBIN - TOTAL 0.46 mg/dL (0.2-1.3); CALC OSMOLALITY 261 mosm/kg (275-300); CALCIUM 8.3 mg/dL (8.5-10.1); CARBON DIOXIDE 35.4 mmol/L (21.0-32.0); CHLORIDE - SERUM 91 mmol/L (98-107); CREATININE - SERUM 0.4 mg/dL (0.6-1.3); GLUCOSE 95 mg/dL (74-106); PROTEIN - SERUM 5.9 g/dL (6.4-8.2); SODIUM 130 mmol/L (136-145); UREA NITROGEN 15 mg/dL (7-18); eGFR NON AFRICAN AMERICAN > 90 mL/min (90-120)
[2017-07-28 06:58] LABS: LYMPHOCYTES 5 % (15-50); MONOCYTES 4 % (2-11); NEUTROPHILS 82 % (40-80); PLATELET ESTIMATE NORMAL
--- NOTE | 2017-07-28 07:30 | NUR ---
ASSESSMENT COMPLETE. IV TO L HAND PATENT. NS INFUSING AT 50 CC/HR VIA PUMP. DIRECTOR OF FUNDRAISING SHOWING 67 PER TECH. DRESSING TO L FLANK INTACT. VAPOTHERM AT 35L 50% O2 IN USE. CONT PULSE OX IN USE. SCD'S IN USE TO BILAT LEGS. HALLUCINATING THIS AM. STATES SHE SEES A MAN ON THE WALL BESIDE THE CLOCK.
[2017-07-28 08:11] VITALS: BP 183/89
--- NOTE | 2017-07-28 12:00 | NUR ---
SITTING UP IN CHAIR. DAUGHTER AT BEDSIDE. NO CHANGES NOTED AT THIS TIME.
[2017-07-28 12:37] VITALS: BP 181/83
[2017-07-28 16:18] VITALS: BP 184/89
[2017-07-28 20:00] VITALS: BP 122/86
--- NOTE | 2017-07-28 23:43 | NUR ---
SECURITY ADVISOR WILBER INFORMED THAT PATIENT WAS HYPERTENSIVE AT 189/85 AFTER 3 TRIES AND SHE WAS APART OF DR [employer]. MANUAL BP WAS TAKEN IN RIGHT ARM AT 182/80.
[2017-07-29] VITALS (7 sets, daily range): BP systolic 141–189; BP diastolic 78–102
--- NOTE | 2017-07-29 01:16 | NUR ---
RN NOTE: PT RESTING WITH EYES CLOSED IN HIGH GERMAN'S POSITION. IV IN LEFT HAND PATENT WITH NS INFUSING AT 50 ML / HR. VAPOTHERM IN USE AT 35L / 40% WITH O2 SATS AT 94% AT THIS ASSESSMENT. FAMILY MEMBER IS AT BEDSIDE. CALL LIGHT WITHIN REACH.
[2017-07-29 05:33] LABS: BASOPHILS 0.2 % (0-2); EOSINOPHILS 0 % (0-7); HEMATOCRIT 38.3 % (36.0-48.0); IMMATURE GRANULOCYTES 8.1 % (0-5); LYMPHOCYTES 3.8 % (15-50); MCH 27.9 pg (26.0-34.0); MCHC 33.9 g/dL (31.0-37.0); MCV 82.2 fL (80.0-100.0); MEAN PLATELET VOLUME 9.3 fL (7.4-10.4); MONOCYTES 3.3 % (2-11); NEUTROPHILS 84.6 % (40-80); PLATELET COUNT 240 10x3/uL (130-400); RBC 4.66 10x6/uL (4.00-5.40); RDW 15.2 % (11.5-14.5); WBC 18.4 10x3/uL (4.8-10.8)
[2017-07-29 06:10] LABS: ALBUMIN 2.4 g/dL (3.4-5.0); ALKALINE PHOSPHATASE 73 U/L (46-116); ALT (SGPT) 35 U/L (10-68); BILIRUBIN - TOTAL 0.43 mg/dL (0.2-1.3); CALC OSMOLALITY 258 mosm/kg (275-300); CALCIUM 8.2 mg/dL (8.5-10.1); CARBON DIOXIDE 34.4 mmol/L (21.0-32.0); CHLORIDE - SERUM 91 mmol/L (98-107); CREATININE - SERUM 0.4 mg/dL (0.6-1.3); GLUCOSE 178 mg/dL (74-106); PROTEIN - SERUM 5.5 g/dL (6.4-8.2); SODIUM 127 mmol/L (136-145); UREA NITROGEN 12 mg/dL (7-18); eGFR NON AFRICAN AMERICAN > 90 mL/min (90-120)
--- NOTE | 2017-07-29 07:35 | NUR ---
ASSESSMENT COMPLETE. IV TO L HAND PATENT. NS INFUSING AT 50 CC/HR VIA PUMP. BED ALARM AND ADAIR MAT IN USE. DRESSING TO L FLANK INTACT. I&C TECH SHOWING SR 69 PER TECH. VAPOTHERM 35 L AND 40% O2 IN USE. DROWSY BUT AWAKENS TO VERBAL STIMULI. SCD'S IN USE TO BILAT LEGS.
--- NOTE | 2017-07-29 14:00 | NUR ---
RESTING QUIETLY WITH EYES CLOSED. VISITORS X 2 AT BEDSIDE.
--- NOTE | 2017-07-29 17:41 | NUR ---
NO CHANGES NOTED AT PRESENT. CONTINUES TO BE DROWSY. AWAKENS EASILY TO VERBAL STIMULI.
[2017-07-30 04:00] VITALS: BP 179/84
[2017-07-30 04:49] LABS: BASOPHILS 0.2 % (0-2); EOSINOPHILS 0 % (0-7); HEMATOCRIT 38.9 % (36.0-48.0); IMMATURE GRANULOCYTES 6.8 % (0-5); LYMPHOCYTES 2.7 % (15-50); MCH 27.7 pg (26.0-34.0); MCHC 33.4 g/dL (31.0-37.0); MCV 82.8 fL (80.0-100.0); MEAN PLATELET VOLUME 9.1 fL (7.4-10.4); MONOCYTES 4.3 % (2-11); PLATELET COUNT 237 10x3/uL (130-400); WBC 24.1 10x3/uL (4.8-10.8)
[2017-07-30 04:56] LABS: ALBUMIN 2.3 g/dL (3.4-5.0); ALKALINE PHOSPHATASE 64 U/L (46-116); ALT (SGPT) 38 U/L (10-68); CALC OSMOLALITY 257 mosm/kg (275-300); CALCIUM 8.1 mg/dL (8.5-10.1); CARBON DIOXIDE 32.9 mmol/L (21.0-32.0); CHLORIDE - SERUM 92 mmol/L (98-107); CREATININE - SERUM 0.4 mg/dL (0.6-1.3); PROTEIN - SERUM 5.1 g/dL (6.4-8.2); SODIUM 128 mmol/L (136-145); UREA NITROGEN 13 mg/dL (7-18); eGFR NON AFRICAN AMERICAN > 90 mL/min (90-120)
[2017-07-30 04:57] LABS: GLUCOSE 116 mg/dL (74-106)
--- NOTE | 2017-07-30 05:24 | NUR ---
PT UP TO BSC WITH ASSISTANCE. ALERT AND ORIENTED. IV IN LEFT HAND PATENT WIHT NS INFUSING AT 50 ML / HR. WILL CONTINUE TO MONITOR FOR NEEDS. CALL LIGHT WITHIN REACH. WILL CONTINUE TO MONITOR FOR NEEDS.
[2017-07-30 08:31] VITALS: BP 182/91
--- NOTE | 2017-07-30 09:34 | NUR ---
SCHEDULED MEDICATIONS ADMINISTERED AT THIS TIME. TAKEN SLOWLY, WITH MINMAL DIFFICULTY GETTING PILLS DOWN. REMAINDER OF PILLS CRUSHED AND ADMINISTERED IN APPLESAUCE. DAUGHTER AT BEDSIDE AND PT UP TO RECLINER PER PHYSICAL THERAPY. CALL LIGHT IN REACH AND DOOR OPEN. WILL CONTINUE WITH PLAN OF CARE.
[2017-07-30 12:04] VITALS: BP 143/76
--- NOTE | 2017-07-30 14:53 | NUR ---
NUTRITION F/U CHART REVIEWED. PT VISIT. UP IN CHAIR. POOR INTAKE RECENT MEALS. WILL CONTINUE TO PROVIDE DIET, ENCOURAGE PO INTAKE. RD FOLLOWING
[2017-07-30 16:18] VITALS: BP 155/69
--- NOTE | 2017-07-30 20:47 | NUR ---
PT IN BED WITH EYES OPEN. NO COMPLAINTS OR CONCERNS NOTED AT THIS TIME. CALL LIGHT IN REACH.
--- NOTE | 2017-07-30 21:55 | NUR ---
PT IN BED WITH EYES OPEN. NO CONCERNS NOTED. CALL LIGHT IN REACH.
[2017-07-30 22:08] VITALS: BP 156/84
--- NOTE | 2017-07-30 23:53 | NUR ---
PT IN BED WITH EYES OPEN. NO S/S OF DISTRESS NOTED. NO CONCERNS NOTED. CALL LIGHT IN REACH.
[2017-07-31] VITALS (7 sets, daily range): BP systolic 150–203; BP diastolic 76–98
--- NOTE | 2017-07-31 01:22 | NUR ---
PT IN BED WITH EYES OPEN WATCHING TV. NO COMPLAINTS OR CONCERNS NOTED. CALL LIGHT IN REACH. WILL CONTINUE TO OBSERVE.
--- NOTE | 2017-07-31 04:27 | NUR ---
PT IN BED WITH EYES OPEN. NO CONCERNS NOTED. CALL LIGHT IN REACH.
[2017-07-31 05:44] LABS: BASOPHILS 0.5 % (0-2); EOSINOPHILS 0 % (0-7); HEMATOCRIT 37.7 % (36.0-48.0); HEMOGLOBIN 12.5 g/dL (12-16); IMMATURE GRANULOCYTES 7.5 % (0-5); MCH 27.7 pg (26.0-34.0); MCHC 33.2 g/dL (31.0-37.0); MCV 83.6 fL (80.0-100.0); MEAN PLATELET VOLUME 9.4 fL (7.4-10.4); MONOCYTES 4.2 % (2-11); NEUTROPHILS 85.8 % (40-80); PLATELET COUNT 237 10x3/uL (130-400); RBC 4.51 10x6/uL (4.00-5.40); RDW 15.4 % (11.5-14.5); WBC 25.5 10x3/uL (4.8-10.8)
[2017-07-31 05:55] LABS: ALBUMIN 2.3 g/dL (3.4-5.0); ALKALINE PHOSPHATASE 69 U/L (46-116); ALT (SGPT) 38 U/L (10-68); CALCIUM 8.5 mg/dL (8.5-10.1); CARBON DIOXIDE 33.2 mmol/L (21.0-32.0); CHLORIDE - SERUM 94 mmol/L (98-107); CREATININE - SERUM 0.5 mg/dL (0.6-1.3); POTASSIUM - SERUM 4.1 mmol/L (3.5-5.1); PROTEIN - SERUM 5.1 g/dL (6.4-8.2); SODIUM 130 mmol/L (136-145); eGFR NON AFRICAN AMERICAN > 90 mL/min (90-120)
[2017-07-31 05:57] LABS: CALC OSMOLALITY 272 mosm/kg (275-300); GLUCOSE 261 mg/dL (74-106); UREA NITROGEN 21 mg/dL (7-18)
--- NOTE | 2017-07-31 07:45 | NUR ---
IN AND OUT CATHETER PERFORMED TO OBTAIN URINE SAMPLE PT IS UNABLE TO FOLLOW DIRECTIONS TO OBAIN STERILE URINE SAMPLE VIA CLEAN CATCH.
--- NOTE | 2017-07-31 09:04 | NUR ---
SCHEDULED MEDICATIONS ADMINISTERED AT THIS TIME. 22G IV SITED TO RIGHT FOREARM X1 ATTEMPT. IV TO LEFT HAND D/C WITH CATH TIP INTACT.
--- NOTE | 2017-07-31 11:00 | NUR ---
REMAINS CONFUSED TO TIME, PLACE AND SITUATION. UP IN CHAIR PER PHYSICAL THERAPY. CALL LIGHT IN REACH AND VISITOR AT BEDSIDE. CALL LIGHT IN REACH, WILL CONTINUE WITH PLAN OF CARE.
--- NOTE | 2017-07-31 15:00 | NUR ---
ASSISTED BACK TO BED BY PHYSICAL THERAPY. REMAINS CONFUSED AND AGGITATED. CALL LIGHT IN REACH, WILL CONTINUE WITH PLAN OF CARE.
--- NOTE | 2017-07-31 17:30 | NUR ---
ASSISTED PT TO BEDSIDE COMMODE WITH 2 PERSON ASSIST. GRANDDAUGHTER AT BEDSIDE. ASSISTED PT BACK TO BED, ADAIR ALARM IN USE AND CALL LIGHT IN REACH.
--- NOTE | 2017-07-31 19:45 | NUR ---
PT AWAKE. FAMILY AT BEDSIDE, STATES PT HAS BEEN CONFUSED FOR MAJORITY OF THE DAY. 4L OXIMIZER ON. SCDS IN PLACE. BED ALARM ON. CALL LIGHT IN REACH. WILL CONTINUE TO MONITOR.
--- NOTE | 2017-07-31 21:00 | NUR ---
SCHEDULED MEDICATIONS ADMINISTERED AT THIS TIME. BS 162 4 UNITS HUMALOG ADMINISTERED PER SS. FAMILY AT BEDSIDE, CALL LIGHT IN REACH, ADAIR ALARM ON.
[2017-08-01 03:30] VITALS: BP 187/101
[2017-08-01 05:58] LABS: BASOPHILS 0.4 % (0-2); EOSINOPHILS 0 % (0-7); HEMATOCRIT 40.3 % (36.0-48.0); HEMOGLOBIN 13.3 g/dL (12-16); IMMATURE GRANULOCYTES 7.7 % (0-5); LYMPHOCYTES 3.1 % (15-50); MCH 27.7 pg (26.0-34.0); MCV 83.8 fL (80.0-100.0); MEAN PLATELET VOLUME 9.2 fL (7.4-10.4); MONOCYTES 3.2 % (2-11); NEUTROPHILS 85.6 % (40-80); PLATELET COUNT 220 10x3/uL (130-400); RBC 4.81 10x6/uL (4.00-5.40); RDW 15.6 % (11.5-14.5); WBC 26.9 10x3/uL (4.8-10.8)
[2017-08-01 06:54] LABS: ALBUMIN 2.6 g/dL (3.4-5.0); ALKALINE PHOSPHATASE 73 U/L (46-116); ALT (SGPT) 44 U/L (10-68); BILIRUBIN - TOTAL 0.54 mg/dL (0.2-1.3); CALCIUM 7.9 mg/dL (8.5-10.1); CHLORIDE - SERUM 91 mmol/L (98-107); CREATININE - SERUM 0.4 mg/dL (0.6-1.3); PROTEIN - SERUM 5.6 g/dL (6.4-8.2); SODIUM 130 mmol/L (136-145); eGFR NON AFRICAN AMERICAN > 90 mL/min (90-120)
[2017-08-01 07:01] LABS: CALC OSMOLALITY 263 mosm/kg (275-300); GLUCOSE 143 mg/dL (74-106); UREA NITROGEN 14 mg/dL (7-18)
--- NOTE | 2017-08-01 08:00 | NUR ---
PT REMAINS CONFUSED AND LETHARGIC TO TIME, PLACE AND SITUATION. DAUGHTER AT BEDSIDE. RECTAL TEMPERATURE OBTAINED AND 98.3 DEGREES. CALL LIGHT IN REACH AND DOOR OPEN. WILL CONTINUE WITH PLAN OF CARE.
[2017-08-01 08:10] VITALS: BP 171/86
--- NOTE | 2017-08-01 08:19 | NUR ---
UNABLE TO AROUSE ENOUGH TO SAFELY ADMINISTER PO MEDICATIONS, IV MEDICATIONS ADMINISTERED PER ORDER. DAUGHTER REMAINS AT BEDSIDE AND IV TO RIGHT WRIST PATENT WITH NO S/S OF INFILTRATION PRESENT.
--- NOTE | 2017-08-01 10:37 | NUR ---
PRN APRESOLINE ADMINISTERED AT THIS TIME FOR BLOOD PRESSURE PATIENT IS UNABLE TO SAFELY TAKE ORAL MEDICATIONS AT THIS TIME.
[2017-08-01 12:11] VITALS: BP 140/74
[2017-08-01 17:43] VITALS: BP 121/61
[2017-08-01 19:30] VITALS: BP 126/60
--- NOTE | 2017-08-01 19:46 | NUR ---
PT IS SITTING IN BED VISITING WITH DAUGHTER, NO SIGNS OF DISTRESS, JOVIAL AND JOKING WITH DAUGHTER, STATED NO NEEDS AT THIS TIME. BED IN LOW POSITION, CALL LIGHT IN REACH, CONTINUE WITH PLAN OF CARE
[2017-08-01 23:30] VITALS: BP 125/60
[2017-08-02 04:00] VITALS: BP 144/70
--- NOTE | 2017-08-02 04:42 | NUR ---
EYES CLOSED RESPIRATIONS WITH EASE AND UNLABORED. SR UP X2 CALL LIGHT WITHIN REACH.O2 ON PER OXYMIZER.
[2017-08-02 05:37] LABS: BASOPHILS 0.5 % (0-2); EOSINOPHILS 0 % (0-7); HEMATOCRIT 38.9 % (36.0-48.0); HEMOGLOBIN 12.9 g/dL (12-16); IMMATURE GRANULOCYTES 9.9 % (0-5); LYMPHOCYTES 3.2 % (15-50); MCHC 33.2 g/dL (31.0-37.0); MCV 84.4 fL (80.0-100.0); MONOCYTES 2.8 % (2-11); NEUTROPHILS 83.6 % (40-80); PLATELET COUNT 207 10x3/uL (130-400); RBC 4.61 10x6/uL (4.00-5.40)
[2017-08-02 05:55] LABS: ALBUMIN 2.4 g/dL (3.4-5.0); ALKALINE PHOSPHATASE 61 U/L (46-116); ALT (SGPT) 39 U/L (10-68); CALC OSMOLALITY 263 mosm/kg (275-300); CALCIUM 8.1 mg/dL (8.5-10.1); CARBON DIOXIDE 31.5 mmol/L (21.0-32.0); CHLORIDE - SERUM 94 mmol/L (98-107); CREATININE - SERUM 0.4 mg/dL (0.6-1.3); GLUCOSE 101 mg/dL (74-106); POTASSIUM - SERUM 4.3 mmol/L (3.5-5.1); SODIUM 131 mmol/L (136-145); UREA NITROGEN 16 mg/dL (7-18); eGFR NON AFRICAN AMERICAN > 90 mL/min (90-120)
[2017-08-02 09:22] VITALS: BP 152/80
[2017-08-02 12:39] VITALS: BP 154/71
[2017-08-02 15:59] VITALS: BP 150/70
--- NOTE | 2017-08-02 17:25 | NUR ---
EATING DINNER. O2 5L PER OXIMIZER IN USE. DENIES ANY NEEDS AT THIS TIME.
--- NOTE | 2017-08-02 19:43 | NUR ---
PT IS LYING IN BED WITH EYES CLOSED PT HAS LOTION ON FACE BARELY RUBBED IN , JAR OF LOTION ON BEDSIDE TABLE WITH LID IN BED, CLOSED JAR FOR PT AND FINISHED APPLYING PT LOTION, PT ARISES TO VOICE, NO SIGNS OF DISTRESS, BED IN LOW POSITION CALL LIGHT IN REACH, PT SCDS ARE ON LEGS BUT NOT TURNED ON , RESTARTED SCD'S FOR PT, LEGS WERE COOL TO TOUCH BILATERALLY. CONTINUE WITH PLAN OF CARE
[2017-08-02 20:00] VITALS: BP 158/76
--- NOTE | 2017-08-02 23:53 | NUR ---
PT BP WAS 181/90 ADMIN PRN APRESOLINE, RETAKE BP WITHIN THE NEXT HOUR
[2017-08-03] VITALS: BP 181/90
[2017-08-03 04:00] VITALS: BP 154/67
[2017-08-03 07:01] LABS: BASOPHILS 0.2 % (0-2); EOSINOPHILS 0 % (0-7); HEMATOCRIT 37.7 % (36.0-48.0); HEMOGLOBIN 12.4 g/dL (12-16); IMMATURE GRANULOCYTES 7.1 % (0-5); LYMPHOCYTES 3.1 % (15-50); MCH 27.7 pg (26.0-34.0); MCHC 32.9 g/dL (31.0-37.0); MCV 84.3 fL (80.0-100.0); MEAN PLATELET VOLUME 9.9 fL (7.4-10.4); MONOCYTES 3.3 % (2-11); NEUTROPHILS 86.3 % (40-80); PLATELET COUNT 200 10x3/uL (130-400); RBC 4.47 10x6/uL (4.00-5.40); WBC 21.2 10x3/uL (4.8-10.8)
[2017-08-03 07:28] LABS: ALBUMIN 2.3 g/dL (3.4-5.0); ALKALINE PHOSPHATASE 64 U/L (46-116); ALT (SGPT) 36 U/L (10-68); BILIRUBIN - TOTAL 0.31 mg/dL (0.2-1.3); CALC OSMOLALITY 262 mosm/kg (275-300); CALCIUM 8.2 mg/dL (8.5-10.1); CARBON DIOXIDE 33.7 mmol/L (21.0-32.0); CHLORIDE - SERUM 95 mmol/L (98-107); CREATININE - SERUM 0.4 mg/dL (0.6-1.3); GLUCOSE 105 mg/dL (74-106); POTASSIUM - SERUM 4.1 mmol/L (3.5-5.1); PROTEIN - SERUM 5.1 g/dL (6.4-8.2); SODIUM 130 mmol/L (136-145); UREA NITROGEN 18 mg/dL (7-18); eGFR NON AFRICAN AMERICAN > 90 mL/min (90-120)
[2017-08-03 08:50] VITALS: BP 191/95
--- NOTE | 2017-08-03 09:30 | NUR ---
SITTING UP IN CHAIR. DENIES ANY NEEDS AT THIS TIME.
--- NOTE | 2017-08-03 12:33 | NUR ---
NUTRITION F/U CHART REVIEWED, PT VISIT. UP IN CHAIR FOR LUNCH, FAMILY ASSISTING. 50% INTAKE RECENT MEALS. RD FOLLOWING
[2017-08-03 13:03] VITALS: BP 153/89
[2017-08-03 16:45] VITALS: BP 154/79
--- NOTE | 2017-08-03 19:16 | NUR ---
PT LYING IN BED WITH EYES CLOSED, EYES OPEN SPONTANEOUSLY TO SPEACH, ENCOURAGED PT TO LYE ON SIDE INSTEAD OF DIRECTLY ON REAR END. BED IN LOW POSITION, CALL LIGHT IN REACH. CONTINUE WITH CARE PLAN
[2017-08-03 20:00] VITALS: BP 169/75
[2017-08-04] VITALS: BP 171/89
--- NOTE | 2017-08-04 00:49 | NUR ---
PATIENT IS RESTING QUIETLY WITH EYES CLOSED. NO SIGNS OF DISTRESS NOTED. OXYMIZER ON. BED IN LOWEST POSITION, CALL LIGHT IN REACH. BEDRAILS UP X'S 2.
[2017-08-04 04:00] VITALS: BP 156/84
[2017-08-04 06:28] LABS: BASOPHILS 0.6 % (0-2); EOSINOPHILS 0 % (0-7); HEMATOCRIT 39.9 % (36.0-48.0); HEMOGLOBIN 12.9 g/dL (12-16); IMMATURE GRANULOCYTES 7.4 % (0-5); LYMPHOCYTES 5.4 % (15-50); MCH 27.7 pg (26.0-34.0); MCHC 32.3 g/dL (31.0-37.0); MCV 85.6 fL (80.0-100.0); MEAN PLATELET VOLUME 9.7 fL (7.4-10.4); MONOCYTES 4.2 % (2-11); NEUTROPHILS 82.4 % (40-80); PLATELET COUNT 168 10x3/uL (130-400); RBC 4.66 10x6/uL (4.00-5.40); RDW 16.6 % (11.5-14.5); WBC 18.1 10x3/uL (4.8-10.8)
[2017-08-04 06:39] LABS: ALBUMIN 2.3 g/dL (3.4-5.0); ALKALINE PHOSPHATASE 67 U/L (46-116); ALT (SGPT) 38 U/L (10-68); BILIRUBIN - TOTAL 0.43 mg/dL (0.2-1.3); CALC OSMOLALITY 267 mosm/kg (275-300); CALCIUM 8.5 mg/dL (8.5-10.1); CARBON DIOXIDE 33.2 mmol/L (21.0-32.0); CHLORIDE - SERUM 96 mmol/L (98-107); CREATININE - SERUM 0.4 mg/dL (0.6-1.3); GLUCOSE 140 mg/dL (74-106); POTASSIUM - SERUM 3.9 mmol/L (3.5-5.1); PROTEIN - SERUM 5.2 g/dL (6.4-8.2); SODIUM 131 mmol/L (136-145); UREA NITROGEN 21 mg/dL (7-18); eGFR NON AFRICAN AMERICAN > 90 mL/min (90-120)
--- NOTE | 2017-08-04 07:05 | NUR ---
REPORT RECEIVED, ASSUMED CARE OF PT. BED ALARM ON. RESTING, EASILY AROUSED. R WRIST IV INFUSING FLUIDS ORDRED, DRSG C/D/I. O2 AT 5L OXIM[address]ER IN PLACE. NO NEEDS VOICED AT THIS TIME. BED IN LOWEST POSITION, SIDE RAILS UP X 2, CALL LIGHT WITHIN REACH.
--- NOTE | 2017-08-04 09:00 | NUR ---
WENT TO GIVE PT MORNING MEDICATIONS AND FAMILY MEMBER STATED SHE FOUND SOME IN PT ROOM AND GAVE THEM TO HER, IT WAS SEROQUEL AND VASOTEC. VASOTEC HELD.
[2017-08-04 13:15] VITALS: BP 123/68
[2017-08-04 16:33] VITALS: BP 120/63
--- NOTE | 2017-08-04 17:35 | NUR ---
PT RESTING WITH FAMILY AT BEDSIDE. NO NEEDS VOICED AT THIS TIME. BED IN LOWEST POSITION, SIDE RAILS UP X 2, CALL LIGHT WITHIN REACH.
[2017-08-04 20:00] VITALS: BP 129/63
[2017-08-05 00:18] VITALS: BP 138/70
[2017-08-05 04:34] VITALS: BP 132/68
[2017-08-05 05:17] LABS: BASOPHILS 0.1 % (0-2); EOSINOPHILS 0 % (0-7); HEMATOCRIT 35.7 % (36.0-48.0); HEMOGLOBIN 11.5 g/dL (12-16); LYMPHOCYTES 3.1 % (15-50); MCH 27.6 pg (26.0-34.0); MCHC 32.2 g/dL (31.0-37.0); MCV 85.6 fL (80.0-100.0); MEAN PLATELET VOLUME 9.7 fL (7.4-10.4); MONOCYTES 1.3 % (2-11); NEUTROPHILS 91.5 % (40-80); RBC 4.17 10x6/uL (4.00-5.40); RDW 16.4 % (11.5-14.5); WBC 14.6 10x3/uL (4.8-10.8)
[2017-08-05 05:18] LABS: PLATELET COUNT 133 10x3/uL (130-400)
[2017-08-05 05:38] LABS: ALBUMIN 2.2 g/dL (3.4-5.0); ALKALINE PHOSPHATASE 54 U/L (46-116); ALT (SGPT) 34 U/L (10-68); CALC OSMOLALITY 270 mosm/kg (275-300); CALCIUM 8.2 mg/dL (8.5-10.1); CARBON DIOXIDE 34.5 mmol/L (21.0-32.0); CHLORIDE - SERUM 97 mmol/L (98-107); CREATININE - SERUM 0.4 mg/dL (0.6-1.3); GLUCOSE 140 mg/dL (74-106); SODIUM 134 mmol/L (136-145); UREA NITROGEN 16 mg/dL (7-18); eGFR NON AFRICAN AMERICAN > 90 mL/min (90-120)
--- NOTE | 2017-08-05 07:05 | NUR ---
REPORT RECEIVED, ASSUMED CARE OF PT. RESTING WITH EYES SHUT, EASILY AROUSED. BED ALARM ON. NO NEEDS VOICED AT THIS TIME. R WRIST IV INFUSING ORDERED, DRSG C/D/I. 5L O2 VIA OXIMIZER IN PLACE. BED IN LOWEST POSITION, SIDE RAILS UP X 2, CALL LIGHT WITHIN REACH.
[2017-08-05 08:43] VITALS: BP 178/81
[2017-08-05 11:51] VITALS: BP 189/95
[2017-08-05 16:49] VITALS: BP 174/84
--- NOTE | 2017-08-05 19:45 | NUR ---
PT RECEIVING BREATHING TREATMENT AT THIS TIME. DENIES ANY NEEDS. PT IS ALERT AND ORIENTED. BED ALARM AND SCD'S ON. CALL LIGHT IN REACH, WILL CONTINUE TO MONIOR.
[2017-08-05 20:00] VITALS: BP 183/96
--- NOTE | 2017-08-05 22:00 | NUR ---
SCHEDULED MEDICATIONS ADMINISTERED AT THIS TIME. BS 217 8 UNITS HUMALOG ADMINISTERED PER SS. ASSESSMENT COMPLETED AT THIS TIME. BED ALARM ON, CALL LIGHT IN REACH. PT DENIES ANY OTHER NEEDS. SRX2, BED LOW. O2 6L VIA OXIMIZER. WILL CONTINUE TO MONITOR.
[2017-08-06] VITALS (7 sets, daily range): BP systolic 140–191; BP diastolic 81–95
--- NOTE | 2017-08-06 01:35 | NUR ---
PT RESTING QUIETLY AT THIS TIME WITH EYES CLOSED. OS SAT 96% WITH 6L VIA OXIMIZER. NO DISTRESS NOTED. BED ALARM ON.
[2017-08-06 04:58] LABS: BASOPHILS 0.1 % (0-2); EOSINOPHILS 0 % (0-7); HEMATOCRIT 37.5 % (36.0-48.0); HEMOGLOBIN 12.1 g/dL (12-16); IMMATURE GRANULOCYTES 2.2 % (0-5); LYMPHOCYTES 2.5 % (15-50); MCH 27.8 pg (26.0-34.0); MCHC 32.3 g/dL (31.0-37.0); MEAN PLATELET VOLUME 9.9 fL (7.4-10.4); NEUTROPHILS 93.2 % (40-80); PLATELET COUNT 135 10x3/uL (130-400); RBC 4.36 10x6/uL (4.00-5.40); RDW 16.1 % (11.5-14.5); WBC 23.4 10x3/uL (4.8-10.8)
[2017-08-06 05:40] LABS: ALBUMIN 2.5 g/dL (3.4-5.0); ALKALINE PHOSPHATASE 74 U/L (46-116); ALT (SGPT) 41 U/L (10-68); BILIRUBIN - TOTAL 0.33 mg/dL (0.2-1.3); CALC OSMOLALITY 267 mosm/kg (275-300); CALCIUM 8.3 mg/dL (8.5-10.1); CHLORIDE - SERUM 95 mmol/L (98-107); CREATININE - SERUM 0.3 mg/dL (0.6-1.3); GLUCOSE 154 mg/dL (74-106); POTASSIUM - SERUM 4.1 mmol/L (3.5-5.1); PROTEIN - SERUM 5.8 g/dL (6.4-8.2); SODIUM 132 mmol/L (136-145); UREA NITROGEN 13 mg/dL (7-18); eGFR NON AFRICAN AMERICAN > 90 mL/min (90-120)
--- NOTE | 2017-08-06 06:08 | NUR ---
NOW ON OXIMIZER 10 L O2 SAT 98
--- NOTE | 2017-08-06 06:26 | NUR ---
BS 152 4 UNITS HUMALOG ADMINISTERED PER SS.
--- NOTE | 2017-08-06 09:00 | NUR ---
REC'D IN BED AWAKE AND ALERT. RESP EVEN AND UNLABORED WITH NO DISTRESS NOTED. CAN EXPRESS SOME NEEDS AND WANTS. NO C/O NOTED OR VOICED OF YET TODAY. ASSESSMENT COMPLETED. C/L IN REACH AT BEDSIDE.
--- NOTE | 2017-08-06 11:30 | NUR ---
PT WAS UNABLE TO SWALLOW MEDICATION AT THIS TIME WITH SEVERAL ATTEMPTS MADE. MEDICATION WAS PLACED IN PUDDING AND GIVEN TO PT WITH SOME DIFFFICULTY STILL NOTED.
--- NOTE | 2017-08-06 11:43 | NUR ---
Rehab Prescreening Consult recieved and the chart has been reviewed. She is known from a recent stay in the rehab. Currently she is to low level to participate in the required 3 hours of therapy 5 days a week. Rehab will follow to see if there is a qualifying diagnosis to be able to bring her back to the Rehab within a 30 day period. Discussed with the CM Lorrie Geller. Daya Fermin RN Clinical Liaison, Rehab
--- NOTE | 2017-08-06 18:48 | NUR ---
RESTING WELL AT THIS TIME. EASILY TO AROUSED WHEN NAME IS CALLED. C/L IN REACH AT BEDSIDE.
--- NOTE | 2017-08-06 18:50 | NUR ---
RESTING QUIETLY AT THIS TIME. LUNGS DIMINISHED THROUGHOUT. NO NEEDS NOTED.
--- NOTE | 2017-08-06 19:30 | NUR ---
PT RESTING QUIETLY AT THIS TIME. O2 5L VIA OXIMIZER O2 SAT 96%. NO DISTRESS NOTED. SCD'S OFF, BED ALARM IN USE SRX2, BED LOW AND CALL LIGHT IN REACH. WILL CONTINUE TO MONITOR.
--- NOTE | 2017-08-06 21:47 | NUR ---
BS 183 4 UNITS HUMALOG ADMINISTERED AT THIS TIME.
[2017-08-07 04:00] VITALS: BP 150/69
[2017-08-07 06:52] LABS: BASOPHILS 0.1 % (0-2); EOSINOPHILS 0.1 % (0-7); HEMATOCRIT 38.8 % (36.0-48.0); HEMOGLOBIN 12.6 g/dL (12-16); IMMATURE GRANULOCYTES 3.7 % (0-5); LYMPHOCYTES 7.3 % (15-50); MCH 27.7 pg (26.0-34.0); MCHC 32.5 g/dL (31.0-37.0); MCV 85.3 fL (80.0-100.0); MEAN PLATELET VOLUME 9.7 fL (7.4-10.4); MONOCYTES 2.5 % (2-11); NEUTROPHILS 86.3 % (40-80); PLATELET COUNT 120 10x3/uL (130-400); RBC 4.55 10x6/uL (4.00-5.40); RDW 16.2 % (11.5-14.5); WBC 18.1 10x3/uL (4.8-10.8)
[2017-08-07 07:33] LABS: ALBUMIN 2.3 g/dL (3.4-5.0); ALKALINE PHOSPHATASE 69 U/L (46-116); ALT (SGPT) 42 U/L (10-68); BILIRUBIN - TOTAL 0.53 mg/dL (0.2-1.3); CALC OSMOLALITY 262 mosm/kg (275-300); CALCIUM 8.1 mg/dL (8.5-10.1); CARBON DIOXIDE 35.1 mmol/L (21.0-32.0); CHLORIDE - SERUM 93 mmol/L (98-107); CREATININE - SERUM 0.3 mg/dL (0.6-1.3); POTASSIUM - SERUM 3.6 mmol/L (3.5-5.1); PROTEIN - SERUM 5.3 g/dL (6.4-8.2); SODIUM 132 mmol/L (136-145); UREA NITROGEN 11 mg/dL (7-18); eGFR NON AFRICAN AMERICAN > 90 mL/min (90-120)
[2017-08-07 07:34] LABS: GLUCOSE 73 mg/dL (74-106)
--- NOTE | 2017-08-07 08:00 | NUR ---
ASSESSMENT PER FLOW SHEET.PT WITHOUT DISTRESS.SHE IS VERY SLEEPY THIS AM. SHE IS ALSO HAVING CONFUSION.FALL PREVENTION IN PLACE WITH ADAIR MAT IN PLACE AND ON.DOOR OPEN TO MONITOR FOR NEEDS
[2017-08-07 09:05] VITALS: BP 171/81
[2017-08-07 11:35] VITALS: BP 109/66
--- NOTE | 2017-08-07 13:00 | NUR ---
NUTRITION F/U CHART REVIEWED. PT VISIT. PT TOLERATING LUNCH WITH ASSIST. NOT DRINKING MUCH ENSURE TODAY. WILL CONTINUE TO PROVIDE DIET, MONITOR PO INTAKE. RD FOLLOWING
[2017-08-07 16:12] VITALS: BP 127/71
--- NOTE | 2017-08-07 18:36 | NUR ---
REMAINS WITHOUT CANGE.CONFUSION AT TIMES. AWAKE THIS AFTERNOON.CONT PLAN OF CARE
[2017-08-07 21:30] VITALS: BP 151/78
[2017-08-08] VITALS (7 sets, daily range): BP systolic 138–194; BP diastolic 71–98
[2017-08-08 05:21] LABS: BASOPHILS 0.1 % (0-2); EOSINOPHILS 0.2 % (0-7); HEMATOCRIT 35.7 % (36.0-48.0); HEMOGLOBIN 11.7 g/dL (12-16); IMMATURE GRANULOCYTES 2.3 % (0-5); LYMPHOCYTES 8.2 % (15-50); MCH 27.6 pg (26.0-34.0); MCHC 32.8 g/dL (31.0-37.0); MCV 84.2 fL (80.0-100.0); MEAN PLATELET VOLUME 10.4 fL (7.4-10.4); MONOCYTES 2.6 % (2-11); NEUTROPHILS 86.6 % (40-80); PLATELET COUNT 103 10x3/uL (130-400); RBC 4.24 10x6/uL (4.00-5.40); RDW 16.4 % (11.5-14.5); WBC 14.8 10x3/uL (4.8-10.8)
[2017-08-08 05:43] LABS: ALBUMIN 2.3 g/dL (3.4-5.0); ALKALINE PHOSPHATASE 69 U/L (46-116); ALT (SGPT) 41 U/L (10-68); CALC OSMOLALITY 267 mosm/kg (275-300); CALCIUM 8.1 mg/dL (8.5-10.1); CHLORIDE - SERUM 97 mmol/L (98-107); CREATININE - SERUM 0.3 mg/dL (0.6-1.3); POTASSIUM - SERUM 3.5 mmol/L (3.5-5.1); PROTEIN - SERUM 4.9 g/dL (6.4-8.2); SODIUM 135 mmol/L (136-145); UREA NITROGEN 13 mg/dL (7-18); eGFR NON AFRICAN AMERICAN > 90 mL/min (90-120)
[2017-08-08 05:44] LABS: GLUCOSE 62 mg/dL (74-106)
--- NOTE | 2017-08-08 07:40 | NUR ---
PT AOX1 SELF PT CONFUSED @X'S PT DENIES NEEDS AT THIS TIME IV TO RIGHT WRIST PATENT AND INTACT AT THIS TIME SRX2 BED AT LOWEST SETTING CALL LIGHT WITHIN REACH WILL CONTINUE TO MONITOR
--- NOTE | 2017-08-08 19:45 | NUR ---
PT RESTING QUIETLY WITH EYES CLOSED, RESPIRATIONS EQUAL, NO DISTRESS NOTED. O2 5L OXIMIZER 96%. IV RIGHT WRIST NS @ 50. SCD'S ON. BED ALARM ON. CALL LIGHT IN REACH, WILL CONTINUE TO MONITOR.
--- NOTE | 2017-08-08 21:41 | NUR ---
BS 151 ADMINISTERED 4 UNITS HUMALOG PER SS.
[2017-08-09 04:00] VITALS: BP 150/60
[2017-08-09 05:16] LABS: BASOPHILS 0.1 % (0-2); EOSINOPHILS 0 % (0-7); HEMATOCRIT 36.1 % (36.0-48.0); HEMOGLOBIN 11.5 g/dL (12-16); IMMATURE GRANULOCYTES 1.7 % (0-5); LYMPHOCYTES 6.6 % (15-50); MCH 27.4 pg (26.0-34.0); MCHC 31.9 g/dL (31.0-37.0); MEAN PLATELET VOLUME 9.9 fL (7.4-10.4); MONOCYTES 1.6 % (2-11); PLATELET COUNT 110 10x3/uL (130-400); RBC 4.19 10x6/uL (4.00-5.40); RDW 16.6 % (11.5-14.5); WBC 13.3 10x3/uL (4.8-10.8)
[2017-08-09 05:36] LABS: MCV 86.2 fL (80.0-100.0)
[2017-08-09 05:43] LABS: ALBUMIN 2.2 g/dL (3.4-5.0); ALKALINE PHOSPHATASE 65 U/L (46-116); ALT (SGPT) 37 U/L (10-68); BILIRUBIN - TOTAL 0.34 mg/dL (0.2-1.3); CALCIUM 7.7 mg/dL (8.5-10.1); CARBON DIOXIDE 34.9 mmol/L (21.0-32.0); CHLORIDE - SERUM 98 mmol/L (98-107); POTASSIUM - SERUM 3.6 mmol/L (3.5-5.1); PROTEIN - SERUM 5.1 g/dL (6.4-8.2); SODIUM 135 mmol/L (136-145); UREA NITROGEN 11 mg/dL (7-18)
[2017-08-09 05:44] LABS: CALC OSMOLALITY 269 mosm/kg (275-300); CREATININE - SERUM 0.2 mg/dL (0.6-1.3); GLUCOSE 117 mg/dL (74-106); eGFR NON AFRICAN AMERICAN > 90 mL/min (90-120)
--- NOTE | 2017-08-09 06:30 | NUR ---
BS 101 NO COVERAGE NEEDED AT THIS TIME.
--- NOTE | 2017-08-09 07:00 | NUR ---
REPORT RECEIVED, ASSUMED CARE OF PT. RESTING, EYES SHUT, EASILY AROUSED. R WRIST IV INFUSING FLUIDS ORDERED, DRSG C/D/I. TELEMETRY IN PLACE, 82 BPM SR. O2 AT 5L VIA OXYMIZER. NO NEEDS VOICED AT THIS TIME. BED ALARM ON, BED IN LOWEST POSITION, SIDE RAILS UP X 2, CALL LIGHT WITHIN REACH.
[2017-08-09 08:16] VITALS: BP 189/90
[2017-08-09] MEDS ORDERED: PREDNISONE20 MG PO (11:12)
[2017-08-09] MEDS ORDERED: ZYPREXA2.5 MG PO (11:12)
[2017-08-09] MEDS ORDERED: METOPROLOL TART50 MG PO (11:12)
[2017-08-09] MEDS ORDERED: ATROVENT 0.02%2.5 ML INH (11:12)
[2017-08-09] MEDS ORDERED: HYDRALAZINE20 MG/ML IV (11:12)
[2017-08-09] MEDS ORDERED: THERMOTABS 1 GM1 GM PO (11:12)
[2017-08-09] MEDS ORDERED: HUMALOG 30100 UNITS/ SC (11:12)
[2017-08-09] MEDS ORDERED: BROVANA15 MCG/2 M INH (11:12)
[2017-08-09] MEDS ORDERED: FLORAJEN3 CAPS460 MG PO (11:12)
[2017-08-09] MEDS ORDERED: ACETAMINOPHEN325 MG PO (11:12)
[2017-08-09] MEDS ORDERED: XOPENEX 0.0.63 MG/3 INH (11:12)
--- NOTE | 2017-08-09 12:50 | NUR ---
CM REASSESSMENT NOTE: PATIENT IS DISCHARGING TO IP REHAB TODAY/FAMILY AWARE.
--- NOTE | 2017-08-09 15:17 | NUR ---
REPORT CALLED TO REHAB.
--- NOTE | 2017-08-09 15:29 | NUR ---
R FOREARM IV D/C'D, BLEED CONTROL, BANDAGE APPLIED. DISCHARGE INSTRUCTIONS GIVEN TO PT AND FAMILY, VERBALIZED UNDERSTANDING, SIGNED.
--- NOTE | 2017-08-09 15:33 | NUR ---
PT DISCHARGED FROM FLOOR TO REHAB VIA WHEELCHAIR AND HOSPITAL STAFF. FAMILY AND PERSONAL BELONGINGS WITH PT.
== END 2017-08-09 15:34 | DRG 193 ==
LOC: D.ER 14:29 → D.MS 19:12
PROVIDERS: Emergency Medicine; Family Medicine; Internal Medicine Pulmonary Disease; Physician Assistant Medical; ADMIT Family Medicine
DX: J18.9 Pneumonia, unspecified organism (principal); G93.49 Other encephalopathy; J96.21 Acute and chronic respiratory failure with hypoxia; N39.0 Urinary tract infection, site not specified; R44.0 Auditory hallucinations; E87.1 Hypo-osmolality and hyponatremia; J84.10 Pulmonary fibrosis, unspecified; Z99.81 Dependence on supplemental oxygen; H35.30 Unspecified macular degeneration; Z66 Do not resuscitate; R44.1 Visual hallucinations; R29.6 Repeated falls; E83.42 Hypomagnesemia; G47.33 Obstructive sleep apnea (adult) (pediatric); I27.20 Pulmonary hypertension, unspecified; I07.1 Rheumatic tricuspid insufficiency; D64.9 Anemia, unspecified; B96.20 Unspecified Escherichia coli [E. coli] as the cause of diseases classified elsewhere; R00.0 Tachycardia, unspecified; K21.9 Gastro-esophageal reflux disease without esophagitis; R91.1 Solitary pulmonary nodule; H91.90 Unspecified hearing loss, unspecified ear

== ENCOUNTER 2017-08-09 14:31 | Inpatient (IN) | payer MEDICARE, BC ==
[~2017-08-09] VITALS: Ht 160 cm; Wt 64.9 kg
[~2017-08-09 14:31] MED LIST changes: +ACETAMINOPHEN325 MG PO; +ATROVENT 0.02%2.5 ML INH; +BROVANA15 MCG/2 M INH; +HUMALOG 30100 UNITS/ SC; +HYDRALAZINE20 MG/ML IV; +METOPROLOL TART50 MG PO; +PREDNISONE20 MG PO; +THERMOTABS 1 GM1 GM PO; +XOPENEX 0.0.63 MG/3 INH; +ZYPREXA2.5 MG PO
--- NOTE | 2017-08-09 16:00 | NUR ---
ADMIT TO FLOOR FROM [facility]. MAX ASST TO TRANSFER FROM TO BED. IS ALERT AND ORIENTED BUT POOR SHORT TERM MEMORY LOSS NOTED. DENIES PAIN. OXYGEN 5L NC IN PLACE. LUNG SOUNDS DIMINISHED TO ALL LOBES. DENIES COUGH. 4+ EDEMA NOTED TO LUE. 2+ EDEMA NOTED TO RUE. BOTH HEELS BOGGY BUT NO SKIN BREAKDOWN NOTED. RT KNEE HAS 1CM ROUND CIRCULAR ABRASION NOTED. PT IS NON AMBULATORY.
[2017-08-09 17:05] VITALS: BP 158/77; BMI 25.3
--- NOTE | 2017-08-09 19:25 | NUR ---
IN BED, AWAKE. REPOSITIONED HER HIGHER UP IN BED FOR COMFORT. PATIENT IS FINISHING HER FRUIT CUP FROM DINNER. TOLD HER I WILL REMOVED HER TRAY WHEN SHE IS FINISHED.
--- NOTE | 2017-08-09 20:30 | NUR ---
VS AND ASSESSMENT COMPLETE. TOLD HER I WILL RETURN TO DELIVER HER HS MEDS IN AWHILE.
--- NOTE | 2017-08-09 21:35 | NUR ---
RESTING QUIETLY IN BED, EYES CLOSED. CONTINUES ON O2 PER N/C @ 5L FLOW.
[2017-08-09 22:35] VITALS: BP 142/73
--- NOTE | 2017-08-09 22:35 | NUR ---
AWOKE PATIENT, WHO WAS PLACED ON BIPAP WITH 5L O2 ABOUT 30 MINUTES AGO. HS WERE CRUSHED IN CHOCOLATE PUDDING AND GIVEN TO PATIENT. STILL HAD SOME DELAY AND MILD SWALLOWING DIFFICULTY, BUT NO COUGHING OR CHOKING. FSBS 240. GAVE PATIENT 8 UNITS HUMALOG INSULIN SC IN RIGHT UPPER ARM.
--- NOTE | 2017-08-10 00:15 | NUR ---
R/T HERE TO DELIVER UPDRAFT. FOUND PATIENT HAVING REMOVED HER BIPAP AND THEREFORE HER O2 SUPPLY. VERY CONFUSED. PULSEOX NOW IN MID TO HIGH 60'S. WAS PLACED BACK ON NASAL CANNULA @ 5L FLOW AND UPDRAFT INITIATED. DISCUSSED THE ISSUE WITH R/T AND FOR SAFETY REASONS WILL LEAVE PATIENT ON NASAL CANNULA SHE IS NOT RESPONSIBLE ENOUGH TO CONTINUE ON HER BIPAP AT THIS TIME.
--- NOTE | 2017-08-10 02:15 | NUR ---
REMAINS IN BED, AWAKE. O2 PER N/C @ 5L FLOW IN NARES IN PROPER POSITION. WHEN PATIENT ASKED WHAT I WANTED I APPROACHED HER BED, I TOLD HER I WAS JUST CHECKING ON WHETHER SHE HAD HER OXYGEN CANNULA IN HER NOSE. SHE THEN PROCEEDED TO TRY TO RELATE SOMETHING ABOUT AN OCCURRENCE "LAST NIGHT," BUT THE MEANING OF WHAT SHE WAS SAYING WAS NOT EVIDENT AND APPEARED TO BE UNRELATED THOUGHTS.
--- NOTE | 2017-08-10 04:35 | NUR ---
PATIENT AWAKE. DENIES NEEDS.
--- NOTE | 2017-08-10 05:40 | NUR ---
PATIENT HAD NOT CALLED ALL NIGHT TO URINATE. FOUND HER TO BE DRY. PLACED HER N BEDPAN AND SHE URINATED 700ML CLEAR YELLOW URINE. PATIENT IS VERY SOMNOLENT THIS AM AND NOT ORIENTED EXCEPT TO SELF AT THIS TIME.
[2017-08-10 05:56] LABS: BASOPHILS 0.1 % (0-2); EOSINOPHILS 0.8 % (0-7); HEMATOCRIT 34.7 % (36.0-48.0); HEMOGLOBIN 11.3 g/dL (12-16); IMMATURE GRANULOCYTES 1.8 % (0-5); LYMPHOCYTES 8.2 % (15-50); MCHC 32.6 g/dL (31.0-37.0); MCV 86.1 fL (80.0-100.0); MONOCYTES 1.9 % (2-11); NEUTROPHILS 87.2 % (40-80); PLATELET COUNT 122 10x3/uL (130-400); RBC 4.03 10x6/uL (4.00-5.40); RDW 16.5 % (11.5-14.5); WBC 11.8 10x3/uL (4.8-10.8)
[2017-08-10 06:12] LABS: CALCIUM 8.2 mg/dL (8.5-10.1); CARBON DIOXIDE 36.6 mmol/L (21.0-32.0); CHLORIDE - SERUM 98 mmol/L (98-107); CREATININE - SERUM 0.2 mg/dL (0.6-1.3); POTASSIUM - SERUM 3.4 mmol/L (3.5-5.1); SODIUM 136 mmol/L (136-145); UREA NITROGEN 13 mg/dL (7-18); eGFR NON AFRICAN AMERICAN > 90 mL/min (90-120)
[2017-08-10 06:13] LABS: CALC OSMOLALITY 269 mosm/kg (275-300); GLUCOSE 60 mg/dL (74-106)
--- NOTE | 2017-08-10 06:20 | NUR ---
PATIENT LETHARGIC. LAB GLUCOSE JUST RETURNED. GLUCOSE 60. GAVE PATIENT GLUCAGON 1MG IM IN RIGHT VASTUS LATERALIS.
--- NOTE | 2017-08-10 06:45 | NUR ---
PATIENT NOW MORE ORIENTED AND RESPONSIVE. KNOWS SHE IS IN [place] AND KNOWS THE YEAR.
--- NOTE | 2017-08-10 07:38 | NUR ---
PT RESTING IN BED WITH EYES OPEN CALL LIGHT IN REACH WILL MONITER
[2017-08-10 08:53] VITALS: BP 174/85
[2017-08-10 13:58] VITALS: Ht 160 cm; Wt 64.9 kg
--- NOTE | 2017-08-10 15:20 | NUR ---
DR ALVARADO IN TO SEE PT PER CONSULT ORDER
--- NOTE | 2017-08-10 18:35 | NUR ---
PT RESTING IN BED WITH EYES OPEN PT RESPONDS TO VOICE PT IS [place] CALL LIGHT IN REACH NO PROBLEMS WILL MONITER
--- NOTE | 2017-08-10 19:00 | NUR ---
IN BED, EYES CLOSED. ATTEMPTED TO AROUSE PATIENT AND FOUND HER TO BE QUITE SOMNOLENT/LETAHRGIC. WILL RECHECK AFTER REPORT. PATIENT CONTINUES ON O2 PER N/C AT 5L FLOW.
--- NOTE | 2017-08-10 19:50 | NUR ---
CONTINUES LETHARGIC AND DIFFICULTY TO AWAKEN, BUT RESPONDS TO TOUCH AND LOUD VOICE (PATIENT IS VERY ANIAK). DAY SHIFT NURSE REPORTED THAT SHE WORKED VERY HARD IN THERAPY TODAY.
[2017-08-10 21:16] VITALS: BP 146/75
--- NOTE | 2017-08-11 02:35 | NUR ---
RESTING IN BED, HOB UP 45 DEGREES. EYES CLOSED. O2 CONTINUES PER N/C @ 5L FLOW.
--- NOTE | 2017-08-11 04:30 | NUR ---
IN BED, EYES CLOSED. AUDIBLE RESPIRATIONS ARE DEEP AND REGULAR.
--- NOTE | 2017-08-11 06:50 | NUR ---
PATIENT IN BED A&O X4. FSBS WAS 105 THIS AM. DENIES CURRENT NEEDS.
--- NOTE | 2017-08-11 08:00 | NUR ---
SHIFT ASSMT COMPLETED.CL IN REACH.
[2017-08-11 09:27] VITALS: BP 126/52
--- NOTE | 2017-08-11 12:00 | NUR ---
RESTING QUIETLY.LUNCH.
--- NOTE | 2017-08-11 20:00 | NUR ---
PT. IN THERAPY ROOM WITH Leanna PT. REMEMBERED ME FROM WHEN I HAD HER BEFORE A PT. HERE IN THE REHAB UNIT. ASSESSMENT COMPLETED. NO VOICED NEEDS AT THIS TIME SHE IS EATING VANILLA ICE CREAM. OT WILL PLACE PT. BACK IN BED WHEN COMPLETED WITH THERAPY. PT. REMAINS ON 5L/NC O2 WITHOUT ANY S/S DISTRESS.
[2017-08-11 20:35] VITALS: BP 117/53
--- NOTE | 2017-08-11 23:26 | NUR ---
PT. IN BED WITH HOB UP FOR COMFORT AND IS WEARING HER N/C O2 AT 5/MIN WITHOUT ANY S/S DISTRESS. EYE CLOSED AND RESP. EVEN AND HER CALL LIGHT IS WITHIN REACH.
--- NOTE | 2017-08-12 03:13 | NUR ---
PT. IN BED WITH HOB UP FOR COMFORT WITH EYES CLOSED AND RESP. EVEN. SCD'S REMAIN ON WITHOUT ANY ALARMS. CALL LIGHT WITHIN REACH.
--- NOTE | 2017-08-12 05:32 | NUR ---
FSBS THIS MORNING 73. GAVE PT. PARKER CRACKERS AND MILK.
[2017-08-12 10:33] VITALS: BP 124/55
[2017-08-12 19:30] VITALS: BP 152/65
--- NOTE | 2017-08-12 19:35 | NUR ---
PT. IN BED WITH HOB UP FOR COMFORT AND IS WATCHING TV. ASSESSMENT COMPLETED. NO VOICED NEEDS AT THIS TIME AND HER CALL LIGHT IS WITHIN REACH.
--- NOTE | 2017-08-12 23:19 | NUR ---
PT. IN BED LYING ON HER LEFT SIDE. EYES CLOSED AND RESP. EVEN. O2 ON VIA N/C AT 3L/MIN WITHOUT ANY S/S DISTRESS. SCD'S TO BLE'S WITHOUT ANY ALARMS. CALL LIGHT WITHIN REACH.
--- NOTE | 2017-08-13 03:16 | NUR ---
PT. IN BED WITH HOB UP FOR COMFORT AND HER EYES ARE CLOSED AND RESP. EVEN. PT. CONTINUES TO WEAR HER O2 @ 3L/MIN VIA N/C WITHOUT ANY S/S DISTRESS. SCD'S TO BLE'S REMAIN ON WITHOUT ANY ALARMS. CALL LIGHT REMAINS WITHIN REACH.
[2017-08-13 06:06] LABS: BASOPHILS 0 % (0-2); EOSINOPHILS 0.5 % (0-7); HEMATOCRIT 33.4 % (36.0-48.0); HEMOGLOBIN 10.7 g/dL (12-16); LYMPHOCYTES 12.2 % (15-50); MCH 27.9 pg (26.0-34.0); MEAN PLATELET VOLUME 9.2 fL (7.4-10.4); MONOCYTES 2.8 % (2-11); NEUTROPHILS 83.5 % (40-80); PLATELET COUNT 139 10x3/uL (130-400); RBC 3.84 10x6/uL (4.00-5.40); RDW 17.1 % (11.5-14.5); WBC 7.9 10x3/uL (4.8-10.8)
[2017-08-13 06:18] LABS: CALC OSMOLALITY 277 mosm/kg (275-300); CALCIUM 8.3 mg/dL (8.5-10.1); CHLORIDE - SERUM 98 mmol/L (98-107); CREATININE - SERUM 0.3 mg/dL (0.6-1.3); POTASSIUM - SERUM 3.5 mmol/L (3.5-5.1); SODIUM 139 mmol/L (136-145); UREA NITROGEN 9 mg/dL (7-18); eGFR NON AFRICAN AMERICAN > 90 mL/min (90-120)
[2017-08-13 06:20] LABS: GLUCOSE 117 mg/dL (74-106)
[2017-08-13 07:54] VITALS: BP 173/75
--- NOTE | 2017-08-13 08:00 | NUR ---
PATIENT ASLEEP WHEN BREAKFAST TRAY BROUGHT INTO ROOM. CALL LIGHT WITHIN REACH.
--- NOTE | 2017-08-13 10:38 | NUR ---
PATIENT GOTTEN OUT OF BED BY OCCUPATIONAL AND PHYSICAL THERAPIST. MAX ASST OF TWO
--- NOTE | 2017-08-13 12:00 | NUR ---
GLUCOSE LEVEL 156. FOUR UNITS OF SLIDING SCALE INSLIN GIVEN
--- NOTE | 2017-08-13 15:34 | NUR ---
PATIENT GIVEN PRN MIRALAX AND PJ WITH DIET 7UP. PATIENT HAS NOT HAD A BOWEL MOVEMENT FOR FIVE DAYS.
--- NOTE | 2017-08-13 17:21 | NUR ---
GLUCOSE LEVEL 188. FOUR UNITS OF SLIDING SCALE INSULIN GIVEN
--- NOTE | 2017-08-13 18:43 | NUR ---
RESTING QUIETLY IN BED. CALL LIGHT IN REACH. BED IN LOWEST POSITION.
[2017-08-13 19:00] VITALS: BP 155/70
--- NOTE | 2017-08-13 19:40 | NUR ---
ASSESSMENT PER FLOW SHEET, VS OBTAINED PER NYDIA FRANKLIN, PT ORIENTED TO TIME, PT REPOSITIONED TO RIGHT SIDE WITH PILLOW BEHIND BACK FOR COMFORT AND SUPPORT, PT DENIES NEEDS OR PAIN, BED IN LOW POSITION, SIDE RAILS X 2, CALL LIGHT IN REACH, BED ALARM ON AND WORKING PROPERLY
--- NOTE | 2017-08-13 20:18 | NUR ---
PT BUSINESS SUPPORT PROFESSIONAL LIGHT, PT ASKS ABOUT GETTING UP USE THE BR, PT INFORMED THAT SHE IS TO USE A BED HORTON, PT DOES NOT WANT TO GET ON BED HORTON AT THIS TIME, STATES "I'M NOT QUITE READY FOR A BM", PT INST ON TO USE CALL LIGHT WHEN READY, BED IN LOW [id number], SIDE RAILS X 2, CALL LIGHT IN REACH, BED ALARM ON AND WORKING PROPERLY
--- NOTE | 2017-08-13 20:33 | NUR ---
PT BACKWINDER LIGHT, PT READY FOR BED HORTON, PT PLACED ON BED HORTON, INST TO USE CALL LIGHT WHEN FINISHED, PT VERBALIZES UNDERSTANDING
--- NOTE | 2017-08-13 21:00 | NUR ---
LATE ENTRY: SCD'S PLACED ON AND WORKING PROPERLY
--- NOTE | 2017-08-13 21:00 | NUR ---
PT PLANNING ANALYST LIGHT, PT FINISHED, PT REMOVED FROM BED HORTON, HAD LARGE BROWN FORMED BM, PT CLEANED UP WITH WET WARM WASH CLOTHS, PINK PAD AND BLUE CHUX CHANGED, CALMOSEPTINE APPLIED, PT REPOSITED TO RIGHT SIDE WITH PILLOW BEHIND BACK FOR COMFORT AND SUPPORT, PT DENIES FURTHER NEEDS, INFORMED PT THAT I WILL BE BACK SHORTLY TO ADM MEDS, PT VERBALIZES UNDERSTANDING, SERVED FRESH H20, BED IN LOW POSITION, SIDE RAILS X 2, CALL LIGHT IN REACH, BED ALARM ON AND WORKING PROPERLY
--- NOTE | 2017-08-13 22:44 | NUR ---
PT RESTING WITH EYES CLOSED, AROUSES TO SOFT VERBAL STIMULATION, ADM 2100 MEDS PER MD ORDERS, SEE EMAR, PT DENIES NEEDS OR PAIN AT THIS TIME, BED IN LOW POSITION, SIDE RAILS X 2, CALL LIGHT IN REACH, BED ALARM ON AND WORKING PROPERLY
--- NOTE | 2017-08-14 00:37 | NUR ---
PT RESTING WITH EYES CLOSED, RESP QUIET, NO DISTRESS NOTED, LEFT UNDISTURBED AT THIS TIME, SCD'S CONTINUE ON, BED IN LOW POSITION, SIDE RAILS X 2, CALL LIGHT IN REACH, BED ALARM ON AND WORKING PROPERLY
--- NOTE | 2017-08-14 03:15 | NUR ---
PT RESTING WITH EYES CLOSED, AROUSES TO SOFT VERBAL STIMULATION, PT INCONTINENT OF URINE AND BOWEL, PT CLEANED UP WITH WET WARM WIPES, COMPLETE BEDDING CHANGED, PT HAD REMOVED SCD'S, REFUSES TO PUT THEM BACK ON, PT DENIES NEEDS OR PAIN, BED IN LOW POSITION, SIDE RAILS X 2, CALL LIGHT IN REACH, BED ALARM ON AND WORKING PROPERLY
--- NOTE | 2017-08-14 05:37 | NUR ---
PT RESTING WITH EYES CLOSED, AROUSES TO SOFT VERBAL STIMULATION, FSBS 72, ADM 0600 MED PO PER MD ORDERS, PT INCONTINENT OF URINE, PT CLEANED UP WITH WET WARM WIPES, BLUE CHUX AND ADULT BRIEF CHANGED, PT DENIES FURTHER NEEDS AT THIS TIME, BED IN LOW POSITION, SIDE RAILS X 2, CALL LIGHT IN REACH, BED ALARM ON AND WORKING PROPERLY
--- NOTE | 2017-08-14 06:51 | NUR ---
SHIFT REPORT TO DAY SHIFT
[2017-08-14 09:00] VITALS: BP 158/81
--- NOTE | 2017-08-14 09:50 | NUR ---
PT AM MEDS ADMINISTERED. PT DENIES NEEDS. WCTM.
--- NOTE | 2017-08-14 09:50 | NUR ---
PT AM MEDS ADMINISTERED. PT DENIES NEEDS. WCTM.
--- NOTE | 2017-08-14 11:07 | NUR ---
Nutrition Follow Up: Pt stated that her appetite is improving. She agreed to Ensure with meals. Pt is eating 56% meal avg on a regular mechanical soft diet. No BM since admit. Labs reviewed - Glucose slightly elevated. Meds noted including Prednisone. Rec continue current diet. Will send Ensure TID. RD following.
--- NOTE | 2017-08-14 12:15 | NUR ---
PT EATING LUNCH, DENIES NEEDS. WCTM.
--- NOTE | 2017-08-14 17:09 | RHP ---
PATIENT: JOHANNY DOWD MEDICAL RECORD: [id number] ACCOUNT: [id number] LOCATION:[facility] Honorio1111 : 32 ADMISSION DATE: 08/09/17 REHABILITATION HISTORY AND PHYSICAL EXAMINATION POST ADMISSION PHYSICIAN EXAMINATION POST-ADMISSION PHYSICAL EXAMINATION AND HISTORY AND PHYSICAL DATE OF ADMISSION: 08/09/2017 ADMITTING DIAGNOSIS: Chronic obstructive pulmonary disease induced myopathy. HISTORY OF PRESENT ILLNESS: The patient is an 87-year-old female patient admitted with COPD and myopathy. She has got a past medical history of macular degeneration, hypertension, obstructive sleep apnea, diverticulitis, depression, CHF, and anemia. She was hospitalized at [facility] for pneumonia and found to have pulmonary fibrosis. She has no prior history of lung disease, remote pneumonia in the past, and no history of heart disease. She was recently hospitalized in June with pneumonia, then went to inpatient rehab for strengthening. Since her discharge from the hospital and rehabilitation a few weeks ago, she was tapered off steroid and was using oxygen 3-4 liters via nasal cannula continuously, but continued to have dyspnea with activity on nebs. They did help, but was not able to do daily activities. She then started having some hallucinations, both visual and auditory by Sunday at the time of admission. CTA of the head was negative. Neuro felt like she had global encephalopathy, mild to moderate, likely contributed to by steroids, pneumonia, UTI, electrolyte abnormalities. Pulmonary was consulted for czwhs-lq-sukhwxh respiratory failure with hypoxia. Speech therapy was also working on oropharyngeal dysphagia and decreased cognitive linguistic ability. Currently, she is back to her mental baseline with some intermittent confusion and is upgraded to a mechanical soft diet with thin liquids. She remains a high risk for aspiration. Intermittent supervision has been recommended. She has muscle weakness in all extremities, more proximal than distal. She tires easily, become dyspneic easily, and desats with excessive exertion. She has poor balance. She is max assist for sit to stand and bed to chair. She is able to take 4 steps at the bedside with a gait belt, rolling walker, PT, and portable O2. She is on 5 liters of O2 per oxymizer continuously with CPAP Trilogy at bedtime p.r.n. She lived alone prior to this with a son living in a trailer behind her. She is a moderately independent with a rolling walker and O2 at home. She is very motivated and has excellent family support system to assist her returning back home. When she presented down to the rehab, though she did become somewhat confused. She did desat. She is actually doing somewhat better at this time, but may actually need to be transferred back upstairs if she does not get over this acute event. Comorbidities include hypertension, pneumonia, COPD, pulmonary fibrosis, rabdd-gt-ucxhwxd respiratory failure, dysphagia, global encephalopathy, acute mental status changes, delirium, electrolyte abnormalities, leukocytosis, UTI, restrictive lung disease, debility, sinus tachycardia, macular degeneration, anemia, O2 dependence, lobar pneumonia, elevated BNP, poor nutritional intake, arthritis, and fatigue. PAST MEDICAL HISTORY: Significant for macular degeneration, had a history of hypertension, pneumonia, depression. PAST SURGICAL HISTORY: Includes cataracts, hysterectomy, left knee scope, HISTORY AND PHYSICAL [id number] NILE,JOHANNY Saldivar lumpectomy, and a facelift. ALLERGIES: SULFA DRUGS, DOXYCYCLINE, INDAPAMIDE, CLAVULANIC ACID, AMLODIPINE, AMOXICILLIN, VERSED, DEMEROL, MELOXICAM. CURRENT MEDICATIONS: Include prednisone, she is on a tapering dose at this time. Protonix 40 mg daily, Mag-Ox 400 mg daily. She is on Floranex 460 mg daily. Cymbalta 60 mg daily. Glucose as needed for a hypoglycemic protocol. She is on sodium chloride 1 gram b.i.d. Zyprexa 2.5 mg at bedtime. Lopressor 50 mg b.i.d. Xopenex 0.63 mg every 2 hours p.r.n. Xalatan eye drops. Atrovent and ipratropium bromide updrafts as needed. Hydralazine 10 mg every 6 hours p.r.n. elevated systolic blood pressure greater than 170 or diastolic blood pressure greater than 105. Mucinex D b.i.d. Enalapril 10 mg b.i.d. Pulmicort 0.5 mg b.i.d. Tessalon Perles 200 mg t.i.d. Brovana 15 mcg b.i.d. Tylenol 650 every 6 hours p.r.n. Polyethylene glycol 17 grams in 8 ounces of water daily. HABITS: No alcohol or tobacco use. FAMILY HISTORY: Noncontributory. SOCIAL HISTORY: The patient hopes to return back home. Once again, she will be living close to family members. REVIEW OF SYSTEMS: CONSTITUTIONAL: The patient is very difficult and hard of hearing, but she denies weakness or fatigue. HEENT: Denies cold, cough, or congestion. CARDIOVASCULAR: Denies any chest pain. PHYSICAL EXAMINATION: VITAL SIGNS: Stable, afebrile. GENERAL: An elderly female, who is in no acute distress, alert upon exam, although she does have some noted confusion. She also has difficulty hearing. HEENT: Normocephalic and atraumatic. Mucosa moist. TMs appear shiny and mobile. NECK: Supple. No lymphadenopathy. LUNGS: Decreased breath sounds bilaterally. CARDIOVASCULAR: Regular rate and rhythm. ABDOMEN: Benign. EXTREMITIES: No clubbing, cyanosis, or edema. NEUROLOGIC: Difficult to assess at this time secondary to her being hard of hearing and also having some mild confusion. LABORATORY DATA: White count is 11.8, H&H of 11 and 34, and platelet count is noted to be 122. Her sodium is 136, potassium 3.4, BUN and creatinine of 13 and 0.2, and blood sugar was noted to be 60 this morning, this has been replaced. ASSESSMENT: This is an 87-year-old female patient admitted to rehab with a working diagnosis of chronic obstructive pulmonary disease induced myopathy. The patient has potential to make improvement. We will institute the following multidisciplinary therapies including, but not limited to physical, occupational, respiratory, speech, nutritional services, prosthetics and orthotics. Given her complex condition and risk for more complications, rehabilitation services cannot be provided at a low level of care such as a long term facility. HISTORY AND PHYSICAL [id number] JOHANNY DOWD PLAN: 1. Admit to [facility] rehab for intensive inpatient therapy to include the following disciplines: A. Physical therapy to improve gait, all transfer skills and bed mobility to a modified independent level. B. Occupational therapy to improve activities of daily living to a modified independent level. C. Case management to assist with discharge planning and placement options. D. Nutrition to assist with nutritional needs. E. Rehabilitation nursing to assist in monitoring the patient's underlying medical conditions and to assist with any type of bowel or bladder management. 2. The patient's current medications and medical care will be continued. 3. The patient will be placed on standard fall precautions. 4. I am going to go ahead and consult pulmonary to see her during her stay down here. 5. We will discuss this patient during care team staff meeting. We will follow her up closely in the a.m. If she needs to, I will transfer her back upstairs. Hopefully, we will able to keep her here. TRANSINT:[id number] Voice Confirmation ID: [id number] DOCUMENT ID: [id number] YOLANDA notes whether there has been none or any medical/functional change since admission: - COGNITIVE CHANGES THROUGHOUT THE NIGHT, PULSE OX DECREASE. YOLANDA attests patient continues to be appropriate for IRF: - WILL FOLLOW AT THIS TIME. AGATA ISABEL MD at 1709 CC: [id number] DICTATION DATE: 08/10/17825 POOL SERVICER: 08/10/17928 ADM IN [facility] [address] [place] [address]
--- NOTE | 2017-08-14 17:15 | NUR ---
PT RESTING, EYES CLOSED. BED LOW. CL IN REACH.
--- NOTE | 2017-08-14 19:30 | NUR ---
IN BED, EYES CLOSED. NO DISTRESS EVIDENT.
[2017-08-14 20:00] VITALS: BP 104/45
--- NOTE | 2017-08-14 20:00 | NUR ---
PT IN BED WITH HOB UP FOR COMFORT. RESTING QUIETLY. CONFUSED AT TIMES. FSBS ACHS. [place]. TRILOGY MACHINE @ NIGHT. MEDS CRUSHED IN APPLESAUCE. SCDS AT NIGHT. 02 @ 3L. NO IV. BED ALARM ON. BED IN LOWEST POSIITON AND CALL LIGHT WITHIN REACH.
--- NOTE | 2017-08-14 21:42 | NUR ---
PT STATES "I HAVE NOT BEEN WEARING MY CPAP AND I DO NOT WANT TO WEAR IT."
--- NOTE | 2017-08-14 21:47 | NUR ---
CHECKED PT'S O2 STAT AND IT IS GOING BETWEEN 89% AND 91%. CALLED [facility] AND SHE STATED, "IM GONNA COME DOWN IN A MINUTE AND HAVE HER PUT ON HER MACHINE."
--- NOTE | 2017-08-15 01:45 | NUR ---
PT IN BED WITH HOB UP FOR COMFORT. EYES CLOSED. CHEST RISING AND FALLING. BED IN LOWEST POSITION AND CALL LIGHT WITHIN REACH.
--- NOTE | 2017-08-15 04:43 | NUR ---
PT LYING IN BED WITH HOB UP FOR COMFORT. EYES CLOSED. RESPIRATIONS ARE EVEN AND UNLABORED. BED IN LOWEST POSITION AND CALL LIGHT WIHTIN REACH. O2 ON. BED ALARM ON.
[2017-08-15 06:57] LABS: BASOPHILS 0.4 % (0-2); HEMATOCRIT 37.2 % (36.0-48.0); HEMOGLOBIN 11.3 g/dL (12-16); IMMATURE GRANULOCYTES 1.3 % (0-5); LYMPHOCYTES 19.1 % (15-50); MCH 27.7 pg (26.0-34.0); MCHC 30.4 g/dL (31.0-37.0); MCV 91.2 fL (80.0-100.0); MEAN PLATELET VOLUME 9.2 fL (7.4-10.4); MONOCYTES 3.6 % (2-11); NEUTROPHILS 71.6 % (40-80); PLATELET COUNT 140 10x3/uL (130-400); RBC 4.08 10x6/uL (4.00-5.40); RDW 18.8 % (11.5-14.5); WBC 7.5 10x3/uL (4.8-10.8)
[2017-08-15 06:59] LABS: CALC OSMOLALITY 272 mosm/kg (275-300); CARBON DIOXIDE 30.5 mmol/L (21.0-32.0); CHLORIDE - SERUM 99 mmol/L (98-107); CREATININE - SERUM 0.2 mg/dL (0.6-1.3); GLUCOSE 92 mg/dL (74-106); POTASSIUM - SERUM 4.7 mmol/L (3.5-5.1); SODIUM 136 mmol/L (136-145); UREA NITROGEN 15 mg/dL (7-18); eGFR NON AFRICAN AMERICAN > 90 mL/min (90-120)
[2017-08-15 07:30] VITALS: BP 121/65
--- NOTE | 2017-08-15 10:00 | NUR ---
PT AM MEDS ADMINISTERED AT THIS TIME CRUSHED IN APPLESAUCE. PT DENIES NEEDS. WCTM.
--- NOTE | 2017-08-15 12:15 | NUR ---
PT SITTING UP IN ROOM, EATING LUNCH, DENIES NEEDS. WCTM.
--- NOTE | 2017-08-15 15:48 | NUR ---
PT IN THERAPY GYM, TOLERATING WELL, DENIES NEEDS. WCTM.
--- NOTE | 2017-08-15 16:38 | NUR ---
PATIENT ADMITTED TO REHAB FROM ACUTE FLOOR. DR. MCNEAL IS HER PCP. NICOLA SANTIAGO IS HER PHARMACY SHE IS A CLIENT OF [employer]. DME AT HOME IS O2, WALKER, CANE AND A TRILOGY. TENATIVE DISCHARGE DATE IS 08/27/17. WILL CONTINUE TO FOLLOW WITH PATIENT AND WILL ASSIST WITH DISCHARGE NEEDS.
--- NOTE | 2017-08-15 18:44 | NUR ---
PT RESTING IN ROOM, FAMILY AT BEDSIDE. PT DENIES NEEDS. WCTM.
--- NOTE | 2017-08-15 19:15 | NUR ---
BEDSIDE HANDOFF AND REPORT COMPLETE. PATIENT DENIES NEEDS.
[2017-08-15 19:30] VITALS: BP 152/56
--- NOTE | 2017-08-15 20:00 | NUR ---
RESTING IN BED WITH EYES CLOSED. HOB UP 30 DEGREES.
--- NOTE | 2017-08-15 21:50 | NUR ---
THOUGH DIFFICULT TO AROUSE INITIALLY, PATIENT IS NOW FULLY AWAKE AND ORIENTED X4. ASSESSMENT COMPLETE. TOOK HS MEDS CRUSHED IN APPLESAUCE. DENIES DISCOMFORT. TURNED PATIENT TO PARTIAL LEFT SIDELYING POSITION FOR PRESSURE RELIEF.
--- NOTE | 2017-08-16 00:10 | NUR ---
IN BED, EYES CLOSED. RESTING QUIETLY.
--- NOTE | 2017-08-16 02:30 | NUR ---
IN BED, EYES CLOSED. APPEARS COMFORTABLE.
--- NOTE | 2017-08-16 06:15 | NUR ---
PLACED PATIENT ON BEDPAN @ 0600. NOW RETRIEVED BEDPAN. URINATED ABOUT 400ML DARK ESCOBAR URINE. CLEANSED PATIENT AND APPLIED PULL-UP BRIEF AND CHANGED HER FROM GOWN TO SCRUB TOP AND FRESH PULL-UP BRIEF.
[2017-08-16 07:54] VITALS: BP 144/86
--- NOTE | 2017-08-16 15:50 | NUR ---
SITTING UP IN WC.DENIES NEEDS.
--- NOTE | 2017-08-16 16:28 | NUR ---
PT RESTING IN BED WITH EYES OPEN CALL LIGHT IN REACH WILL MONITER
--- NOTE | 2017-08-16 19:30 | NUR ---
ASSISTED PATIENT UP FROM W/C TO BR COMMODE. PATIENT IS TOTAL TO MAX ASSIST FOR TRANSFER.
--- NOTE | 2017-08-16 20:30 | NUR ---
IN BED, AWAKE. WATCHING TV. REFUSED SCD'S TONIGHT.
[2017-08-16 23:10] VITALS: BP 129/84
--- NOTE | 2017-08-16 23:10 | NUR ---
FSBS 229. GAVE PATIENT 8 UNITS HUMALOG S/S INSULIN SC IN RIGHT UPPER ARM. PATIENT TOOK HS MEDS CRUSHED IN APPLESAUCE. SHE IS A&O X4 TONIGHT.
--- NOTE | 2017-08-17 | NUR ---
IN BED, EYES CLOSED. O2 CONTINUES PER N/C @ 3L FLOW. SNORING SOFTLY AT PRESENT.
--- NOTE | 2017-08-17 02:10 | NUR ---
RESTING IN BED, EYES CLOSED. APPEARS COMFORTABLE.
--- NOTE | 2017-08-17 04:40 | NUR ---
RESTING IN BED, EYES CLOSED. SNORING SOFTLY.
[2017-08-17 06:31] LABS: CALC OSMOLALITY 282 mosm/kg (275-300); CALCIUM 8.5 mg/dL (8.5-10.1); CARBON DIOXIDE 36.8 mmol/L (21.0-32.0); CHLORIDE - SERUM 102 mmol/L (98-107); GLUCOSE 101 mg/dL (74-106); POTASSIUM - SERUM 4.1 mmol/L (3.5-5.1); SODIUM 141 mmol/L (136-145); UREA NITROGEN 18 mg/dL (7-18)
[2017-08-17 06:32] LABS: CREATININE - SERUM 0.3 mg/dL (0.6-1.3); eGFR NON AFRICAN AMERICAN > 90 mL/min (90-120)
--- NOTE | 2017-08-17 06:50 | NUR ---
PATIENT AWAKE. DENIES NEEDS. FSBS 101 THIS MORNING.
--- NOTE | 2017-08-17 07:00 | NUR ---
RESTING QUIETLY IN BED. CALL LIGHT IN REACH. BED IN LOWEST POSITION.
[2017-08-17 07:35] LABS: BASOPHILS 0.2 % (0-2); EOSINOPHILS 0.9 % (0-7); HEMATOCRIT 30.8 % (36.0-48.0); HEMOGLOBIN 9.6 g/dL (12-16); IMMATURE GRANULOCYTES 1.4 % (0-5); LYMPHOCYTES 17.4 % (15-50); MCH 27.7 pg (26.0-34.0); MCHC 31.2 g/dL (31.0-37.0); MEAN PLATELET VOLUME 9.1 fL (7.4-10.4); MONOCYTES 4.5 % (2-11); NEUTROPHILS 75.6 % (40-80); PLATELET COUNT 162 10x3/uL (130-400); RBC 3.46 10x6/uL (4.00-5.40); WBC 6.7 10x3/uL (4.8-10.8)
--- NOTE | 2017-08-17 08:15 | NUR ---
PT RESTING IN BED WITH EYES OPEN CALL LIGHT IN REACH NO PROBLEMS WILL MONITER
--- NOTE | 2017-08-17 08:15 | NUR ---
PT RESTING IN BED WITH EYES OPEN CALL LIGHT IN REACH WILL MONITER
--- NOTE | 2017-08-17 18:40 | NUR ---
PT RESTING IN BED WITH EYES OPEN CALL LIGHT IN REACH WILL MONITER
--- NOTE | 2017-08-17 19:10 | NUR ---
IN BED, AWAKE. DENIES NEEDS.
--- NOTE | 2017-08-17 20:00 | NUR ---
REMAINS IN BED. O2 PER N/C @ 3L FLOW. DELIVERED HER MENU TO COMPLETE. DENIES CURRENT NEEDS.
[2017-08-17 22:38] VITALS: BP 119/57
--- NOTE | 2017-08-17 22:40 | NUR ---
ASSESSMENT AND HS MEDS COMPLETE. FSBS 248. GAVE HER HUMALOG S/S INSULIN, 8 UNITS SC IN RIGHT UPPER ARM. DENIES NEEDS. EARLIER APPLIED SCD'S. PATIENT HAS REFUSED THEM ON OCCASION, BUT IS TOLERATING THEM TONIGHT.
--- NOTE | 2017-08-18 00:05 | NUR ---
RESTING QUIETLY ON LEFT SIDE, EYES CLOSED. NO DISTRESS EVIDENT.
--- NOTE | 2017-08-18 02:40 | NUR ---
REMAINS IN BED, LYING ON HER LEFT SIDE.
--- NOTE | 2017-08-18 04:15 | NUR ---
RESTING IN BED, EYES CLOSED. RESPIRATIONS ARE QUIET AND UNLABORED.
--- NOTE | 2017-08-18 06:20 | NUR ---
FSBS 64. AWAKE AND ALERT. GAVE HER 8 OZS ORANGE JUICE AND 3 PARKER SQUARES TO BOOST HER BLOOD SUGAR. PATIENT REQUESTED ASSIST UP TO COMMODE. WAS UNABLE TO TRANSFER SAFELY RETURNED HER TO BED. REMOVED HER BRIEF PRIOR TO ASSIST ONTO BEDPAN AND FOUND HER INCONTINENT OF A PASTY, MEDIUM VOLUME BM. CLEANSED PATIENT AND PLACED BEDPAN UNDER HER. SHE THEN URINATED ABOUT 600 ML DARK YELLOW URINE.
--- NOTE | 2017-08-18 08:25 | NUR ---
PT AM MEDS ADMINISTERED CRUSHED IN PUDDING. PT DENIES NEEDS AT THIS TIME. WCTM.
[2017-08-18 08:28] VITALS: BP 165/86
--- NOTE | 2017-08-18 10:30 | NUR ---
PT HAD EPISODE OF INCONTINT B&B. PT CLEANED, BED LINENS CHANGED. PT DENIES NEEDS. WCTM.
--- NOTE | 2017-08-18 12:15 | NUR ---
PT EATING LUNCH, DENIES NEEDS. WCTM.
--- NOTE | 2017-08-18 18:31 | NUR ---
PT EAITNG DINNER, DENIES NEEDS. WCTM.
--- NOTE | 2017-08-18 20:20 | NUR ---
ASSISTED PT WITH BEDPAN.
[2017-08-18 23:15] VITALS: BP 165/86
--- NOTE | 2017-08-19 01:18 | NUR ---
RESTING IN BED WITH EYESA CLOSED. NO S/S OF DISTRESS OBSERVED. KEEPS BLANKET OVER HER HEAD. EASILY AROUSES WITH VERBAL STIMULI. CALL LIGHT AND OVERBED TABLE IN REACH.
--- NOTE | 2017-08-19 01:31 | NUR ---
REST IN BED,EYE CLOSE, CALL LIGHT IN REACH.
[2017-08-19 09:12] VITALS: BP 151/96
--- NOTE | 2017-08-19 09:38 | NUR ---
PT AM MEDS ADMINISTERED CRUSHED IN APPLESAUCE. PT DENIES NEEDS AT THIS TIME. WCTM.
--- NOTE | 2017-08-19 12:15 | NUR ---
PT EATING LUNCH, DENIES NEEDS. WCTM.
--- NOTE | 2017-08-19 18:01 | NUR ---
PT RESTING IN BED, EATING DINNER. WCTM.
[2017-08-19 19:00] VITALS: BP 164/71
--- NOTE | 2017-08-19 20:00 | NUR ---
PT IN BED WITH HOB UP FOR COMFORT. WATCHING TV. FAMILY AT BEDSIDE. 02 @ 4L VIA NC. NO IV. FSBS ACHS. INCONTINENT AT TIMES. CRUSH MEDS . BED IN LOWEST POSITION AND CALL LIGHT WITHIN REACH.
--- NOTE | 2017-08-20 | NUR ---
PT IN BED WITH HOB UP FOR COMFORT. EYES CLOSED. CHEST RISING AND FALLING. BED IN LOWEST POSITION AND CALL LIGHT WITHIN REACH.
--- NOTE | 2017-08-20 04:00 | NUR ---
T LYING IN BED WITH HOB UP FOR COMFORT. EYES CLOSED. RESPIRATIONS ARE EVEN ND UNLABORED. BED IN LOWEST POSITION AND CALL LIGHT WITHIN REACH.
--- NOTE | 2017-08-20 05:09 | NUR ---
RESTING IN BED WITH EYES CLOSED. NO S/S OF DISTRESS OBSERVED. CALL LIGHT AND OVERBED TABLE IN REACH.
[2017-08-20 05:58] LABS: BASOPHILS 0.4 % (0-2); EOSINOPHILS 1.3 % (0-7); HEMATOCRIT 34.8 % (36.0-48.0); HEMOGLOBIN 10.8 g/dL (12-16); IMMATURE GRANULOCYTES 5.7 % (0-5); LYMPHOCYTES 21.4 % (15-50); MCH 28.1 pg (26.0-34.0); MCV 90.4 fL (80.0-100.0); MEAN PLATELET VOLUME 9.2 fL (7.4-10.4); MONOCYTES 6.4 % (2-11); NEUTROPHILS 64.8 % (40-80); RBC 3.85 10x6/uL (4.00-5.40); RDW 18.7 % (11.5-14.5); WBC 6.9 10x3/uL (4.8-10.8)
[2017-08-20 06:02] LABS: PLATELET COUNT 213 10x3/uL (130-400)
[2017-08-20 06:22] LABS: CALC OSMOLALITY 274 mosm/kg (275-300); CALCIUM 8.5 mg/dL (8.5-10.1); CARBON DIOXIDE 35.8 mmol/L (21.0-32.0); CHLORIDE - SERUM 100 mmol/L (98-107); CREATININE - SERUM 0.4 mg/dL (0.6-1.3); GLUCOSE 63 mg/dL (74-106); POTASSIUM - SERUM 3.5 mmol/L (3.5-5.1); SODIUM 139 mmol/L (136-145); UREA NITROGEN 11 mg/dL (7-18); eGFR NON AFRICAN AMERICAN > 90 mL/min (90-120)
[2017-08-20 07:58] VITALS: BP 160/78
--- NOTE | 2017-08-20 08:01 | NUR ---
PATIENT IS ALERT/ORIENT. SOME FORGETFULNESS NOTED. BED ALARM ON. CALL LIGHT WITHIN REACH. BREAKFAST TRAY SET UP IN FRONT OF PATIENT.
--- NOTE | 2017-08-20 09:00 | NUR ---
DR. Paulo ISABEL INTO SEE PATENT. NEW ORDERS RECEIVED
--- NOTE | 2017-08-20 10:35 | NUR ---
PATIENT IS A MAX TO TOTAL ASST FROM BED INTO WHEELCHAIR.
--- NOTE | 2017-08-20 12:00 | NUR ---
PATIENT GIVEN A SHOWER BY NURSE ASST. MOD TO MAX ASST WITH SHOWER.
--- NOTE | 2017-08-20 17:50 | NUR ---
SITTING UP EATING SUPPER.FAMILY AT BEDSIDE.
--- NOTE | 2017-08-20 18:18 | NUR ---
PATIENT REQUESTED CHANGED OF ROOMS. STATED THAT ROOM [facility] MAKES HER VERY NERVIOUS. THIS NURSE STATED THAT WE CAN TALKE TO THE CASEMANAGER/ ADMISSION CORD TOMORROW TO SEE IF WE CAN GET HER ROOM CHANGED. ROOM [facility] DOES NOT STAY AT NIGHT
--- NOTE | 2017-08-20 20:00 | NUR ---
PT RESTING IN BED WITH EYES OPEN. ALERT AND ORIENTED X 3. DENIES ACUTE PAIN OR DISCOMFORT AT THIS TIME. PT REQUESTING A PRIVATE ROOM, DUE TO NOT LIKING HER ROOM [employer] DURING THE DAY. VSS. O2 IS ON @ 4LPM PER NC. NO SOB NOTED. SR'S ARE UP X 2 IN BED. CALL LIGHT AND BEDSIDE TABLE ARE WITHIN EASY REACH.
--- NOTE | 2017-08-20 22:11 | NUR ---
PT MOVED TO ROOM 1109 PER HER REQUEST.
[2017-08-20 22:49] VITALS: BP 140/77
--- NOTE | 2017-08-21 00:04 | NUR ---
RESTING IN BED WITH EYES CLOSED.
--- NOTE | 2017-08-21 03:03 | NUR ---
PT YELLING OUT FOR ASSIST TO USE URINAL PRN. WILL NOT USE CALL LIGHT.
--- NOTE | 2017-08-21 03:04 | NUR ---
RESTING IN BED WITH EYES CLOSED.
--- NOTE | 2017-08-21 07:54 | NUR ---
SITTING UP IN W/C WATCHING MORNING NEWS. ALERT AND ORIENTED X3. DENIES ANY NEEDS OR PAIN. CALL LIGHT WITHIN REACH, W/C BRAKES LOCKED, PERSONAL ITEMS WITHI REACH. WILL CONTINUE TO MONITOR
[2017-08-21 08:32] VITALS: BP 172/87
--- NOTE | 2017-08-21 10:48 | NUR ---
IN THERAPY GYM WITH OCCUPATIONAL THERAPY. NO S/SX OF RESPIRATORY DISTRESS. WILL CONTINUE TO MONITOR
--- NOTE | 2017-08-21 10:49 | NUR ---
Nutrition Follow Up: Pt was in therapy at the time of RD visit. Interview deferred. Pt is eating 52% meal avg on a regular mechanical soft diet. She is receiving Ensure TID. +BM 08/19/17. Labs reviewed - Glucose elevated. Meds noted including Prednisone. Rec continue current diet, supplement regimen. Pt may benefit from an appetite stimulant. RD following.
--- NOTE | 2017-08-21 11:02 | NUR ---
IN THERAPY.LAYA WELL.
--- NOTE | 2017-08-21 15:24 | NUR ---
LYING IN BED EYES CLOSED RESTING. TRILOGY ON. NO S/SX OF RESPIRATORY DISTRESS. CALL LIGHT AND PERSONAL BELONGINGS WITHIN REACH, BED LOW, SR X2. WILL CONTINUE TO MONITOR
--- NOTE | 2017-08-21 19:30 | NUR ---
IN BED, AWAKE. DENIES NEEDS.
--- NOTE | 2017-08-21 20:55 | NUR ---
REMAINS IN BED, NOW RESTING QUIETLY WITH TRILOGY BIPAP NASAL MASK IN PLACE. BIPAP IS OPERATING PER CURRENT SETTINGS WITH O2 @ 4L FLOW.
[2017-08-21 21:37] VITALS: BP 129/77
--- NOTE | 2017-08-21 22:50 | NUR ---
AWAKENED PATIENT AND PLACED HER ON N/C @ 4L FLOW. ASSESSMENT AND HS MEDS THEN COMPLETED. PLACED PATIENT BACK ON BIPAP WITH O2 @ 4L.
--- NOTE | 2017-08-22 | NUR ---
RESTING IN BED, EYES CLOSED. BIPAP NASAL MASK REMAINS IN PLACE.
--- NOTE | 2017-08-22 01:25 | NUR ---
FOUND PATIENT WITH BIPAP MASK OFF, GRUNTING WHILE BREATHING. REPLACE NASAL MASK AND REMINDED HER THAT FOR HER SAFETY AND WELL-BEING. SHE MUST NOT TAKE HER BIPAP MASK OFF. PATIENT SAYS THE POSITIVE PRESSURE "IS TOO HIGH". REMINDED HER THAT THE MACHINE IS PRESET PER HER DOCTOR'S ORDERS AND THAT SHE NEEDS TO CONTINUES WEARING IT TO ADAPT TO THE FLOW.
--- NOTE | 2017-08-22 02:00 | NUR ---
IN BED, AWAKE. R/T HERE READJUSTING SETTINGS ON TRILOGY BIPAP.
--- NOTE | 2017-08-22 06:30 | NUR ---
FSBS 67. GAVE PATIENT 8 OZS ORANGE JUICE AND 3 PARKER CRAX SQUARES.
[2017-08-22 06:32] LABS: BASOPHILS 0.3 % (0-2); EOSINOPHILS 0.4 % (0-7); HEMATOCRIT 34.1 % (36.0-48.0); HEMOGLOBIN 10.6 g/dL (12-16); IMMATURE GRANULOCYTES 5.8 % (0-5); LYMPHOCYTES 23.3 % (15-50); MCH 28.1 pg (26.0-34.0); MCHC 31.1 g/dL (31.0-37.0); MCV 90.5 fL (80.0-100.0); MEAN PLATELET VOLUME 8.9 fL (7.4-10.4); MONOCYTES 6.9 % (2-11); NEUTROPHILS 63.3 % (40-80); PLATELET COUNT 210 10x3/uL (130-400); RBC 3.77 10x6/uL (4.00-5.40); RDW 19.2 % (11.5-14.5); WBC 7.3 10x3/uL (4.8-10.8)
[2017-08-22 06:47] LABS: CALC OSMOLALITY 279 mosm/kg (275-300); CALCIUM 8.2 mg/dL (8.5-10.1); CARBON DIOXIDE 36.9 mmol/L (21.0-32.0); CHLORIDE - SERUM 99 mmol/L (98-107); CREATININE - SERUM 0.4 mg/dL (0.6-1.3); GLUCOSE 76 mg/dL (74-106); POTASSIUM - SERUM 3.5 mmol/L (3.5-5.1); SODIUM 140 mmol/L (136-145); UREA NITROGEN 17 mg/dL (7-18); eGFR NON AFRICAN AMERICAN > 90 mL/min (90-120)
[2017-08-22 10:37] VITALS: BP 151/86
--- NOTE | 2017-08-22 12:00 | NUR ---
SITTING UP IN WC EATING LUNCH.
--- NOTE | 2017-08-22 12:12 | CN ---
PATIENT NAME:JOHANNY ELISE MEDICAL RECORD: [id number] : 31 LOCATION:[id number] ADMIT DATE: 08/09/17 ACCOUNT: [id number] CONSULTING PHYSICIAN: OSMANY ALVARADO MD REFERRING PHYSICIAN: JOSÉ WEBB MD DATE OF CONSULTATION: 08/10/2017 CONSULT REQUESTING PHYSICIAN: José Webb MD REASON FOR CONSULTATION: Chronic hypoxic respiratory failure, pulmonary fibrosis, interstitial lung disease. HISTORY OF PRESENT ILLNESS: Ms. Elise is an 87-year-old female who has a history of interstitial lung disease as well as chronic hypoxic respiratory failure. The patient was recently hospitalized for acute mental status changes as well as pneumonia. Initially, she was Vapotherm almost 100%, they were titrated down to 3-4 liters nasal cannula. The patient was transferred to the rehab last night, the patient has shortness of breath with exertion and with activities. Denies any fever or chills, no night sweats. REVIEW OF SYSTEMS: Mainly in the history of present illness. PAST MEDICAL HISTORY: 1. Interstitial lung disease with pulmonary fibrosis. 2. Obstructive sleep apnea. 3. Secondary pulmonary hypertension. 4. Depression. 5. History of macular degeneration. 6. Possible congestive heart failure. 7. Anemia. PAST SURGICAL HISTORY: 1. Cataract surgery. 2. Hysterectomy. 3. Knee arthroscopic surgery. 4. Lumpectomy. ALLERGIES: SHE IS ALLERGIC TO AMOXICILLIN, CLARITHROMYCIN, AUGMENTIN, MELOXICAM, SULFA, NORVASC, DEMEROL AND VERSED. PERSONAL AND SOCIAL HISTORY: The patient is an ex-smoker. She is a nondrinker. FAMILY HISTORY: Significant for cardiovascular disease. PHYSICAL EXAMINATION: GENERAL: Now, the patient is lying comfortably in bed. She is not in acute distress. VITAL SIGNS: The blood pressure is 154/85, pulse is 84, respirations 20, temperature 97.9, SpO2 of 99% on 4.5 liters nasal cannula. HEENT: Conjunctivae pink, sclerae nonicteric. NECK: Neck is supple, no JVD. CHEST: The chest excursion is minimal on both sides. There are bilateral crackles. No wheezing. HEART: Rhythm regular, normal sound, no murmur. ABDOMEN: Abdomen is soft. Bowel sounds present. No hepatosplenomegaly. CONSULT REPORT [id number] JOHANNY ELISE RECTAL: Deferred. EXTREMITIES: No cyanosis, no clubbing, no pedal edema. SKIN: The skin is warm, normal turgor. CENTRAL NERVOUS SYSTEM: The patient is awake and alert, but she is confused. LABORATORY DATA: CBC today, WBC 11.8, hemoglobin 11.3, hematocrit 34.7 and the platelet count 122. Chemistry: Sodium 136, potassium 3.4, BUN is 13, creatinine 0.2. IMPRESSION: 1. Interstitial lung disease, most likely IPF. 2. Chronic hypoxic respiratory failure. 3. Dyspnea on exertion. 4. Generalized debility. 5. Obstructive sleep apnea. 6. Secondary pulmonary hypertension. RECOMMENDATION: 1. Xopenex and ipratropium nebulizer q.6 hourly, Xopenex nebulizer q.2 hourly p.r.n., Brovana and budesonide nebulizer. 2. Continue prednisone 40 mg daily. Please do not decrease the dose from 40 mg. 3. Supplemental oxygen. 4. Trilogy BiPAP at night. The patient had just spent almost 5 weeks in bed with pneumonia, mental status changes, and hwjjh-am-qzdywyq hypoxic respiratory failure. The patient will be slow to progress, she will have shortness of breath with exertion considering her underlying condition of pulmonary fibrosis. The patient is DO NOT INTUBATE, but she is a medical code from upstairs. Dr. Webb, thank you for involving me in the care of Ms. Elise. TRANSINT:[id number] Voice Confirmation ID: [id number] DOCUMENT ID: [id number] OSMANY ALVARADO MD at 1212 CC: JOSÉ WEBB MD [id number] DICTATION DATE: 08/10/17 1537 FITTING ROOM OPERATOR: 08/10/17 1728 ADM IN [address] [place] [address]
--- NOTE | 2017-08-22 12:31 | NUR ---
PT EATING LUNCH, DENIES NEEDS. WCTM.
--- NOTE | 2017-08-22 16:42 | NUR ---
CARE TEAM MEETING: HAMMAD ATTENDED MEETING AND I SPOKE WITH THE PATIENT REGARDING DISCHARGE PLANS. AT THIS TIME PATIENT WOULD LIKE TO GO TO REHAB AT [facility] AND SEE IF SHE IMPROVES AND IF NOT WILL GO ON [facility]. WILL CONTINUE TO FOLLOW WITH PATIENT AND WILL SEND REFERRLA FOR POSSIBLE ADMISSION ON 08/28/17.
--- NOTE | 2017-08-22 19:10 | NUR ---
BEDSIDE HANDOFF COMPLETE. PATIENT SITTING UP IN W/C AT BEDSIDE. DENIES NEEDS.
--- NOTE | 2017-08-22 20:15 | NUR ---
CONTINUES UP IN W/C. NO COMPLAINTS AT THIS TIME.
[2017-08-22 21:50] VITALS: BP 140/59
--- NOTE | 2017-08-22 21:50 | NUR ---
ASSESSMENT AND HS MEDS COMPLETE. ASSISTED PATIENT UP TO BR COMMODE. AFTER TOILETING, ASSISTED PATIENT TO BATHE USING WARMED REDI-BATH WIPES AND [employer] TOOLS ENGINEER SHE SAID SHE COULD NOT TOLERATE A SHOWER TONIGHT. CHANGED HER CLOTHING AHD HER BED LINENS. PATIENT ELECTED TO STAY UP TO BRUSH HER TEETH. REMAINS IN W/C WITH POSY ALARM ARMED.
--- NOTE | 2017-08-22 23:10 | NUR ---
PATIENT INSISTED ON STAYING UP IN W/C. HAS NOW COMPLETED HER SCHEDULED R/T TREATMENTS AND JUST NOW FINISHED BRUSHING HER TEETH. ASSISTED HER INTO BED. SAYS SHE IS COLD. APPLIED A WARMED BLANKET. CONTINUES ON O2 @ 4L PER N/C. EARLIER TOLD R/T AND MYSELF THAT SHE WILL NOT USE HER TRILOGY BIPAP ANYMORE.
--- NOTE | 2017-08-22 23:55 | NUR ---
RESTING IN BED, EYES CLOSED.
--- NOTE | 2017-08-23 02:25 | NUR ---
IN BED, EYES CLOSED. VOCALIZING WITH EACH BREATH. R/T JUST ARRIVED TO DELIVER HER SCHEDULED TREATMENT.
--- NOTE | 2017-08-23 04:00 | NUR ---
CONTINUES IN BED. RESPIRATIONS ARE AUDIBLE AND REGULAR.
--- NOTE | 2017-08-23 05:15 | NUR ---
FSS 51. PATIENT TOO LETHARGIC TO EAT SNACK. GAVE HER GLUCAGON 1MG SC IN RIGHT UPPER ARM.
[2017-08-23 05:45] LABS: BASOPHILS 0.2 % (0-2); EOSINOPHILS 0 % (0-7); HEMATOCRIT 37.6 % (36.0-48.0); HEMOGLOBIN 11.9 g/dL (12-16); IMMATURE GRANULOCYTES 3.5 % (0-5); LYMPHOCYTES 10.2 % (15-50); MCH 28.5 pg (26.0-34.0); MCHC 31.6 g/dL (31.0-37.0); MONOCYTES 3.5 % (2-11); NEUTROPHILS 82.6 % (40-80); PLATELET COUNT 243 10x3/uL (130-400); RBC 4.18 10x6/uL (4.00-5.40); RDW 18.9 % (11.5-14.5)
[2017-08-23 06:02] LABS: WBC 11.9 10x3/uL (4.8-10.8)
[2017-08-23 06:10] LABS: CALC OSMOLALITY 267 mosm/kg (275-300); CALCIUM 8.6 mg/dL (8.5-10.1); CARBON DIOXIDE 34.1 mmol/L (21.0-32.0); CHLORIDE - SERUM 95 mmol/L (98-107); CREATININE - SERUM 0.4 mg/dL (0.6-1.3); POTASSIUM - SERUM 3.8 mmol/L (3.5-5.1); SODIUM 135 mmol/L (136-145); UREA NITROGEN 16 mg/dL (7-18); eGFR NON AFRICAN AMERICAN > 90 mL/min (90-120)
[2017-08-23 06:14] LABS: GLUCOSE 48 mg/dL (74-106)
--- NOTE | 2017-08-23 07:15 | NUR ---
PT RESPIRATIONS 30 B/P WITHIN LIMITS PT RESPONDS TO VOICE BY OPENING EYES AND MOANING NOT VERBAL RESPIRATORY HERE DOING BLOOD GASSES WILL NOTIFY DR ISABEL
--- NOTE | 2017-08-23 08:30 | NUR ---
DR ISABEL HERE WRITING ORDERS TO DISCHARGE TO MED SURG FLOOR WILL CALL FOR BED
[2017-08-23 08:42] VITALS: BP 96/50
--- NOTE | 2017-08-23 08:50 | NUR ---
SON HERE AT BEDSIDE NOTIFIED OF CONDITION AND TRANSFER HE STATED HE WOULD CALL HIS SISTER AND NOTIFY HERE HER GRANDAUGHTER WAS PRESENT ALSO
--- NOTE | 2017-08-23 10:45 | NUR ---
DAUGHTER HER NOW DISCUSSING POSSIBLE HOSPICE PT RESTING NOW ON B-PAP O2 SATS 90 NON VERBAL PT WAS INCONTIENT OF B&B pt CLEANED AND DRYED REPOSISTENED IN BED WILL BENJI
--- NOTE | 2017-08-23 12:01 | NUR ---
EVAL TO [facility] HAS BEEN SENT PER FAMILY REQUEST AND ADMITT IF APPROPIATE
--- NOTE | 2017-08-23 12:15 | NUR ---
DAUGHTER MADE DISICION FOR PT TO BE ADMITTED TO HOSPICE STATED THEY WOULD BE HERE TO TALK TO FAMILY AT 230
--- NOTE | 2017-08-23 14:00 | NUR ---
PT INCONTIENT OF BOWEL AND BLADDER PT CLEANED AND DRYED PT O2 SAT 90 RESPTING QUIETLY WITH B-PAP NO SIGNS OF DISTRESS NOTED WILL MONITER
--- NOTE | 2017-08-23 14:30 | NUR ---
PT GIVEN TYLENOL SUPPOSITORY FOR ELEVATED TEMP PER ORDER TEMP 100 AUXILLARY
--- NOTE | 2017-08-23 14:45 | NUR ---
HOSPICE HERE IN ROOM WITH FAMILY
--- NOTE | 2017-08-23 17:00 | NUR ---
PT INCONTINET OF BOWEL PT CLEANED AND DRYED REPOSITINED FAMILY AT BEDSIDE NO CHANGE IN CONDITION
--- NOTE | 2017-08-23 17:00 | NUR ---
NURSE FROM [facility] CALLED FOR REPORT GIVEN THE OK TO CALL FOR AMBULANCE
--- NOTE | 2017-08-23 18:00 | NUR ---
NURSE FROM [facility] CALLED FOR REPORT AND OKED FOR AMBULANCE TRANSPORT
--- NOTE | 2017-08-23 18:20 | NUR ---
AMBULANCE CALLED FOR TRANSPORT
--- NOTE | 2017-08-23 19:00 | NUR ---
PATIENT IN BED ON BIPAP. FAMILY MEMBERS PRESENT. PATIENT IS AWAKE AND RESPONDING TO FAMILY.
[2017-08-23 19:55] VITALS: BP 90/34
--- NOTE | 2017-08-23 19:55 | NUR ---
VS TAKEN. ASSISTED AMBULANCE CREW TO TRANSFER PATIENT TO STRETCHER ON THEIR BIPAP @ 4L O2. PATIENT IS AWAKE AND COOPERATIVE. SKIN REMAIN WARM AND DRY. AMBULANCE IS TRANSPORTING PATIENT TO HOSPICE CARE AT [facility]. FAMILY EARLIER GATHERED HER BELONGINGS. DISCHARGE PAPERWORK WAS GIVEN TO AMBULANCE CREW [facility] AMBULANCE TRANSFER FORM.
--- NOTE | 2017-10-06 13:26 | DS ---
PATIENT:JOHANNY DOWD :32 MEDICAL RECORD: [id number] DISCHARGE SUMMARY ADMISSION DATE: 08/09/17 DISCHARGE DATE: 08/23/17 DATE OF DISCHARGE: 08/23/2017 from inpatient rehab. PRIMARY DIAGNOSES: Decreased functional ability and ability to provide activities of daily living secondary to chronic obstructive pulmonary disease, myopathy. SECONDARY DIAGNOSES: 1. Tlmwk-sl-irnyawr hypoxic respiratory failure. 2. Oropharyngeal dysphagia. 3. Urinary tract infection. 4. Pneumonia. 5. Pulmonary fibrosis. 6. Diabetes. 7. Hypertension. 8. Congestive heart failure. 9. Anemia. 10. Restrictive lung disease. 12. Diverticular disease. 12. Hiatal hernia. 13. Osteoarthritis. 14. Depression. 15. Macular degeneration. CONSULTS THIS HOSPITALIZATION: Pulmonary with Dr. Rucker. HOSPITAL COURSE: Full H&P is located elsewhere on the chart on this 87-year-old female, who was admitted to inpatient rehab for physical therapy and occupational therapy to improve gait, transfer skills, bed mobility, and activities of daily living to a modified independent level. She was evaluated by PT and OT and their plans of care were followed. She required halfway care for observation and assessment and medication administration. Fingerstick blood sugars were monitored throughout her hospital stay with appropriate adjustment in medications as needed. She was seen by speech therapy for management of oropharyngeal dysphagia. She was on nebulized medications including Brovana, Pulmicort, and Xopenex for respiratory support as well as supplemental oxygen. She continued with her BiPAP/Trilogy for use with sleep during her hospital stay. She had some leukocytosis with findings consistent with UTI. She was started on erythromycin for antibiotic coverage. She was cooperative with therapies, progressing towards goals; however, she developed some increasing respiratory distress requiring increased FiO2 for oxygen delivery. Dr. Rucker was reconsulted with pulmonary, and she was seen by him. Discussion was for a re-admission to the acute care facility and it was decided by family to pursue hospice care. She was evaluated and accepted for admission to [facility]. DISCHARGE MEDICATIONS: As per discharge medication reconciliation. DISCHARGE DISPOSITION: The patient was transferred via ambulance to inpatient hospice care at [facility]. Further management per hospice medical reimbursement manager. At least 30 minutes was spent in this discharge activity. DISCHARGE SUMMARY REPORT [id number] JOHANNY DOWD TRANSINT:[id number] Voice Confirmation ID: [id number] DOCUMENT ID: [id number] Dictated By: RICO ORTIZ I have interviewed/examined the above patient and agree with these documented findings. AGATA ISABEL MD at 1327 at 1326 CC: [id number] DICTATION DATE: 10/06/17 0857 CUSTOMER SUPPORT MANAGER: 10/06/17 1235 DIS IN 08/23/17 [id number] [place] [address]
== END 2017-08-23 19:55 | disposition hospice, inpatient (51) | DRG 91 ==
LOC: D.REHAB 14:31
PROVIDERS: ADMIT Emergency Medicine
DX: G72.89 Other specified myopathies (principal); G93.49 Other encephalopathy; J15.9 Unspecified bacterial pneumonia; J96.21 Acute and chronic respiratory failure with hypoxia; N39.0 Urinary tract infection, site not specified; E87.1 Hypo-osmolality and hyponatremia; J44.9 Chronic obstructive pulmonary disease, unspecified; Z66 Do not resuscitate; J84.10 Pulmonary fibrosis, unspecified; R41.0 Disorientation, unspecified; E87.8 Other disorders of electrolyte and fluid balance, not elsewhere classified; D72.829 Elevated white blood cell count, unspecified; R53.81 Other malaise; R00.0 Tachycardia, unspecified; R13.12 Dysphagia, oropharyngeal phase; Z99.81 Dependence on supplemental oxygen; R53.83 Other fatigue; D64.9 Anemia, unspecified; G47.33 Obstructive sleep apnea (adult) (pediatric)